=== PATIENT | male | born 1945 | race Caucasian/White ===

== ENCOUNTER → 2019-01-26 | Day surgery (SDC) | payer MEDICARE ==
[~2019-01-26] MED LIST: Heparin 2 UNITS/ML IVPREMIX* 2,000 ML IV ONE; Heparin(*) 1000 UNIT/ML 10 ML VIAL CATH LAB IV ONE; Iodixanol 320 (CONTRAST) 100 ML SDV ONE; Iohexol 350 (CONTRAST) 200 ML MDV IV ONE; Lidocaine 1% INJ* 10 MG/ML 30 ML SDV ONE; Midazolam* 1 MG/ML 5 ML VIAL (5 MG) ONE; Morphine 10 MG/ML VIAL (1 ml) ONE; NS 0.9% 1000 ML** 1,000 ML IV SCH; VERAPAMIL 2.5 MG/ML 2 ML VIAL ** 5 mg/2 ml ONE; fentaNYL* 50 MCG/ML 2 ML VIAL (100 MCG VIAL) ONE; nitroGLYCERIN DRIP* 25,000 MCG/250 ML BTL ONE
--- NOTE | 2019-01-26 13:27 | CATH ---
CATH REPORT: DATE OF PROCEDURE: 01/26/19 - [facility] CATH PRIMARY CARE PHYSICIAN: Dr. Geovanni Lee. SEARCH ENGINE MARKETING MANAGER: Dr. Tiffany Uribe. PROCEDURES: Right radial artery access with bilateral selective coronary cineangiography. HISTORY: A 73-year-old male with remote history of infarct, now with atrial flutter and decompensated heart failure with LVEF of 10%. PROCEDURE ACCESS: Right radial artery sheath 6F slender. MEDICATIONS: 1. Subcu lidocaine. 2. IV morphine 2 mg. 3. Nitroglycerin 300 mcg. 4. Heparin 3000 units IA. DIAGNOSTIC CATHETER: 5F TIG4. HEMODYNAMICS: Initial AO 101/75, final BP 109/77. ANGIOGRAPHY: Image quality somewhat degraded by his decompensated heart failure , and limitation of contrast because of his severe decompensated left-sided heart failure. During the procedure, the patient was comfortable, but had Cheynes-Roberts respirations, but was able to lie flat. Left main: The left main is normal in size without stenosis. LAD: The LAD is large, extends past the apex, it supplies a large first diagonal, a moderate mid diagonal which is preceded by a slit like 50% stenosis , distally the LAD extends to the apex. Circumflex: The circumflex is not dominant, is large with a moderate marginal and a moderate posterolateral, it has no significant stenosis. There are left- to-right collaterals to the distal right coronary with filling of a large PDA and smaller posterolateral. RCA: The RCA has a TEACHER OF THE HANDICAPPED in the proximal segment with bridging collaterals, distally fills by [id number] collaterals. CONCLUSION: 1. Two vessel coronary artery disease with severe LV systolic dysfunction. 2. Normal aortic pressure. 3. Successful right radial artery access. [id number]/[facility] #: [id number] [facility]
[2019-01-26 13:47] VITALS: BP 103/73
== END | disposition home or self-care (01) ==
LOC: CHICATH 07:56
PROVIDERS: ATTEND Internal Medicine Cardiovascular Disease
DX: I25.10 Atherosclerotic heart disease of native coronary artery without angina pectoris (principal); I10 Essential (primary) hypertension; E78.5 Hyperlipidemia, unspecified; R06.02 Shortness of breath; Z87.891 Personal history of nicotine dependence; I25.2 Old myocardial infarction; G47.30 Sleep apnea, unspecified; J84.112 Idiopathic pulmonary fibrosis; I44.7 Left bundle-branch block, unspecified; Z79.01 Long term (current) use of anticoagulants; I42.9 Cardiomyopathy, unspecified
CPT/HCPCS: 93454; J1644; J2250; J2270; J3010

== ENCOUNTER 2019-01-27 07:11 | Inpatient (IN) | payer MEDICARE ==
[2019-01-27] MEDS ORDERED: Midazolam* 1 MG/ML 5 ML VIAL (5 MG) ONE (08:25)
[2019-01-27] MEDS ORDERED: Flumazenil* 0.1 MG/ML 5 ML MDV ONE (08:25)
[2019-01-27] MEDS ORDERED: fentaNYL* 50 MCG/ML 2 ML VIAL (100 MCG VIAL) ONE (08:25)
[2019-01-27] MEDS ORDERED: Naloxone* 0.4 MG/ML 1 ML VIAL ONE (08:25)
[2019-01-27] MEDS ORDERED: Lidocaine 2% VISCOUS* 15 ML UDC ONE (08:25)
[2019-01-27] MEDS ORDERED: Amiodarone 150 MG IVPREMIX* 150 MG/100 ML BAG IV ONE ×3 (10:06→10:08)
[2019-01-27] MEDS ORDERED: AMIODARONE ONE (10:19)
[2019-01-27] MEDS: Norepinephrine 16MCG/ML IVPRE* 4,000 MCG/250 ML BAG IV SCH ×3 (11:10→20:35)
[2019-01-27] MEDS: DOPamine 800 MG/250 ML IVPREM* 800 MG/250 ML ML CENTR SCH (11:20)
[2019-01-27] MEDS ORDERED: Naloxone* 0.4 MG/ML 1 ML VIAL IV PUSH ONE (11:32)
--- NOTE | 2019-01-27 11:42 | CONSULT ---
Subjective Date of Service: 01/27/19 - CC: SOB, orthopnea Interval History: 73 yo with SOB, orthopnea, dementia. Found to have a severe CM, atrial flutter RVR unknown duration. Cath yesterday showed occluded RCA (hx MT age 55) and 50% LAD lesion. IRMA guided CV today: EF 10%, severe RV hypokinesis, Rouleaux formation LA, no clot in THERESA. Succesful CV, loaded with IV amiodarone 300 mg 30 mins post CV BP dropped, apneic breathing. Remazicon 0.3 mg given Pt now in ICU. Family History: Unchanged from Admission Social History: Unchanged from Admission Past Medical History: Unchanged from Admission - CAD, 2V occluded RCA, 50% LAD, CM: ERF 10%, Atrial flutter, CHF, HTN, DM, Chol, SHU, Dementia Medications Active Medications: Amiodarone HCl (Nexterone Drip*) 150 mg in 100 mls @ 600 mls/hr IV ED ONCE ONE Stop: 01/27/19 10:15 Last Admin: 01/27/19 11:26 Dose: Not Given Amiodarone HCl (Nexterone Drip*) 150 mg in 100 mls @ 600 mls/hr IV ED ONCE ONE Stop: 01/27/19 10:16 Last Admin: 01/27/19 11:26 Dose: Not Given Dopamine HCl/Dextrose (Dopamine 800 Mg/250 Ml Ivprem*) 800 mg in 250 mls @ 9.355 mls/hr CENTR .Initial Rate YANELIS; Protocol Norepinephrine Bitartrate (Levophed 16 Mcg/Ml Premix*) 4,000 mcg in 250 mls @ 93.75 mls/hr IV .INITIAL RATE YANELIS; Protocol Naloxone HCl (Narcan*) 0.4 mg IV PUSH ONCE ONE Stop: 01/27/19 11:33 HOME MEDS: Apixaban* [Eliquis*] 5 mg PO BID 01/25/19 [History Confirmed 01/27/19] Aspirin EC TAB* [Ecotrin EC Low Dose 81 MG*] 81 mg PO DAILY 01/25/19 [History Confirmed 01/27/19] Atorvastatin* [Lipitor 20 MG*] 20 mg PO BEDTIME 01/25/19 [History Confirmed 05/05] Carvedilol TAB* [Coreg TAB*] 6.25 mg PO BID 01/25/19 [History Confirmed 01/27/19 ] Cyanocobalamin TAB* [Vitamin B12 TAB*] 500 mcg PO DAILY 01/25/19 [History Confirmed 01/27/19] Furosemide TAB* [Lasix TAB*] 40 mg PO DAILY 01/25/19 [History Confirmed 01/27/19 ] Lisinopril TAB* [Prinivil TAB 10 MG*] 20 mg PO DAILY 01/25/19 [History Confirmed 01/27/19] Multivitamin [Multivitamins] 1 cap PO DAILY 01/25/19 [History Confirmed 01/27/19 ] Nintedanib Esylate [Ofev] 150 mg PO BID WITH MEALS 01/25/19 [History Confirmed 01/27/19] Potassium Chlor TAB* [Potassium Chlor TAB 20 MEQ*] 20 meq PO DAILY 01/25/19 [ History Confirmed 01/27/19] Spironolactone TAB* [Aldactone TAB 25 MG*] 25 mg PO DAILY 01/25/19 [History Confirmed 01/27/19] Tamsulosin HCl 0.4 mg PO BEDTIME 01/25/19 [History Confirmed 01/27/19] Amiodarone TAB* [Cordarone Tab*] 200 mg PO DAILY #90 tab 01/27/19 [Rx] Home Medications: Apixaban* [Eliquis*] 5 mg PO BID 01/25/19 [History Confirmed 01/27/19] Aspirin EC TAB* [Ecotrin EC Low Dose 81 MG*] 81 mg PO DAILY 01/25/19 [History Confirmed 01/27/19] Atorvastatin* [Lipitor 20 MG*] 20 mg PO BEDTIME 01/25/19 [History Confirmed 05/05] Carvedilol TAB* [Coreg TAB*] 6.25 mg PO BID 01/25/19 [History Confirmed 01/27/19 ] Cyanocobalamin TAB* [Vitamin B12 TAB*] 500 mcg PO DAILY 01/25/19 [History Confirmed 01/27/19] Furosemide TAB* [Lasix TAB*] 40 mg PO DAILY 01/25/19 [History Confirmed 01/27/19 ] Lisinopril TAB* [Prinivil TAB 10 MG*] 20 mg PO DAILY 01/25/19 [History Confirmed 01/27/19] Multivitamin [Multivitamins] 1 cap PO DAILY 01/25/19 [History Confirmed 01/27/19 ] Nintedanib Esylate [Ofev] 150 mg PO BID WITH MEALS 01/25/19 [History Confirmed 01/27/19] Potassium Chlor TAB* [Potassium Chlor TAB 20 MEQ*] 20 meq PO DAILY 01/25/19 [ History Confirmed 01/27/19] Spironolactone TAB* [Aldactone TAB 25 MG*] 25 mg PO DAILY 01/25/19 [History Confirmed 01/27/19] Tamsulosin HCl 0.4 mg PO BEDTIME 01/25/19 [History Confirmed 01/27/19] Amiodarone TAB* [Cordarone Tab*] 200 mg PO DAILY #90 tab 01/27/19 [Rx] Review of Systems - Measurements Intake and Output: Intake and Output Last 24 Hours 01/25/19 01/26/19 01/27/19 01/28/19 04:59 04:59 04:59 04:59 Intake Total 550 Balance 550 Weight 220 lb Intake: IV Fluids 550 - Review of Systems General Comments: +Orthopnea, SOB. No CP/arm pain. Per X Noemi Angela hx ADD, mentation worsened in September after new CPAP that turned out to be non functional. Review of Systems Statement: All other review of systems negative, unless stated above. Objective Vital Signs: Temp Pulse Resp BP Pulse Ox 97.1 F 57 2 85/58 85 01/27/19 11:14 01/27/19 11:23 01/27/19 11:14 01/27/19 11:23 01/27/19 11:23 Vital Signs - 12 hr Temp Pulse Resp BP Pulse Ox 01/27/19 11:23 57 85/58 85 01/27/19 11:16 54 61/49 96 01/27/19 11:14 97.1 F 56 2 62/41 97 01/27/19 11:11 61 62/43 100 01/27/19 10:53 61/51 01/27/19 10:39 63/50 01/27/19 10:36 63 66/51 87 01/27/19 10:34 65 68/56 96 01/27/19 10:28 85 89/68 97 01/27/19 10:23 89 95/72 98 01/27/19 10:18 91 110/74 99 01/27/19 10:13 89 99/73 96 01/27/19 10:08 86 107/83 89 01/27/19 10:04 115 109/84 96 01/27/19 10:00 114 100 01/27/19 09:58 114 115/89 95 01/27/19 09:53 115 116/92 98 01/27/19 09:48 114 115/90 96 01/27/19 09:43 114 113/78 99 01/27/19 09:38 117 108/78 95 01/27/19 09:33 117 110/79 94 01/27/19 09:28 116 111/86 96 01/27/19 09:23 116 114/87 93 01/27/19 09:18 115 108/84 92 01/27/19 09:15 116 108/82 98 01/27/19 09:01 116 97 01/27/19 08:51 104/77 01/27/19 08:01 116 24 95 01/27/19 07:42 97.4 F 01/27/19 07:39 116 30 102/76 94 01/27/19 07:38 115 23 98 Oxygen Devices in Use Now: Nasal Cannula Appearance: tall older gentleman, initially chatty but vague, not accurate. Post CV apneic breathing, somewhat compative. Eyes: PERRLA Ears/Nose/Mouth/Throat: Clear Oropharnyx, Mucous Membranes Moist Neck: Trachea Midline, No Thyroid Enlargement, Masses Respiratory: Symmetrical Chest Expansion and Respiratory Effort, Clear to Auscultation Cardiovascular: RRR Abdominal: NL Sounds; No Tenderness; No Distention Extremities: No Edema Skin: No Rash or Ulcers Neurological: NL Muscle Strength and Tone - on arrival. Clear dementia. Follows commands. Lines/Tubes/Other Access: Clean, Dry and Intact Peripheral IV Diagnostic Imaging: Transesophageal Echocardiogram Patient: Markus Miller *Reading Physician: Tiffany Morales MD Indications: Atrial Flutter. History: Coronary artery disease. PMH: Cardiomyopathy. Myocardial infarction. Risk factors: Hypertension. Diabetes mellitus. Dyslipidemia. Conclusions Summary: - Left ventricle: The cavity size is dilated. Wall thickness is mildly increased. Systolic function is severely reduced. The estimated ejection fraction is <10%. - Right ventricle: Systolic function is moderately to severely reduced. - Left atrium: There is no evidence of a thrombus in the atrial cavity or appendage. There is spontaneous echo contrast ("smoke") in the cavity and the appendage. - Atrial septum: A PFO is not demonstrated by color Doppler or agitated saline contrast. - Mitral valve: There is trace to mild regurgitation. - Aortic valve: Mild focal calcification involving the left coronary and noncoronary cusp. -Tricuspid valve: Mild tricuspid regurgitation. EKG Data: Pre CV: a flutter 2:1 block, V rate 108 bpm Post CV: [id number]'s. Assessment/Plan 73 yo with A flutter unknown duration started on Eliquis 2 weeks ago. Severe CM , ischemic and non ischemic, new drop thought to be due to rhythm. Underwent IRMA guided CV complicated by hypotension, apnea. Admitted to hospitalists ICU. Possible cardiogenic shock due to drop in pulse rate post CV- (SV= HR x CO). Sedation could have contributed, but presentation late wrt primary etiology. High risk patient due to severe BiV failure. Supportive care now, agree with pressors/ICU. - should r/o CVA post CV. Additional recommendations following above care and w/u.
[2019-01-27] MEDS ORDERED: Ondansetron INJ* 2 MG/ML VIAL IV PRN (11:47)
[2019-01-27] MEDS ORDERED: Ondansetron INJ* 2 MG/ML VIAL ONE (11:48)
--- NOTE | 2019-01-27 11:55 | TEE ---
*[facility]* [place] [address] Fax #: [phone] Transesophageal Echocardiogram Patient: Markus Miller : 1945 Study Date: 01/27/2019 Age: 73 Gender: M HR: 115 bpm Height: 71 in /180.3 cm BSA: 2.2 m^2 Weight: 219.5 lb /99.8 kg BMI: 30.7 kg/m^2 *Civil Engineering Director: Ariane Larson [facility] *Referring Physician: * Tiffany Uribe MD *Reading Physician: * Tiffany Uribe MD Indications: Atrial Flutter. History: Coronary artery disease. PMH: Cardiomyopathy. Myocardial infarction. Risk factors: Hypertension. Diabetes mellitus. Dyslipidemia. Conclusions Summary: - Left ventricle: The cavity size is dilated. Wall thickness is mildly increased. Systolic function is severely reduced. The estimated ejection fraction is <10%. - Right ventricle: Systolic function is moderately to severely reduced. - Left atrium: There is no evidence of a thrombus in the atrial cavity or appendage. There is spontaneous echo contrast ("smoke") in the cavity and the appendage. - Atrial septum: A PFO is not demonstrated by color Doppler or agitated saline contrast. - Mitral valve: There is trace to mild regurgitation. - Aortic valve: Mild focal calcification involving the left coronary and noncoronary cusp. - Tricuspid valve: There is mild regurgitation. - Ascending aorta: The ascending aorta is mildly dilated and mildly calcified. - Descending aorta: The descending aorta is mildly calcified. Study data: Diagnostic Transesophageal Echocardiogram Consent: The risks and benefits of the procedure, including alternatives were discussed with the patient and/or their health care rental representative and written informed consent was obtained. Procedure: Initial setup: The patient was brought to the laboratory in the fasting state.Intravenous access was obtained. Surface ECG leads, heart rate, heart rhythm, blood pressure measurements, pulse oximetric signals, and mainstream end-tidal CO2 tracings were monitored throughout the procedure. Sedation. Moderate sedation was administered by nursing staff. History and physical as well as labs were reviewed. An oral bite block was inserted for protection of oral dentition. The patient was placed in the left lateral decubitus position. Topical anesthesia was obtained using viscous lidocaine. A transesophageal probe was inserted by the attending safe and vault mechanic. Transesophageal echocardiography was performed, image quality was good, and all standard views were attempted within the limitations of patient tolerance and safety. Multiple 2D, color flow Doppler and spectral Doppler images were obtained. The transesophageal probe was removed. A bubble study was performed. Image #[id number]. Location: Procedure room. Patient status: Outpatient. Study completion: The patient tolerated the procedure well. There were no complications. Administered medications: Midazolam, 4mg. Fentanyl, 25mcg. Rhythm: Atrial flutter. Findings Left ventricle: The cavity size is dilated. Wall thickness is mildly increased. Systolic function is severely reduced. The estimated ejection fraction is <10%. Severe diffuse hypokinesis. Left ventricular diastolic function parameters are indeterminate. Right ventricle: The cavity size is dilated. Systolic function is moderately to severely reduced. Left atrium: The atrium is dilated. The appendage is dilated. There is no evidence of a thrombus in the atrial cavity or appendage. There is spontaneous echo contrast ("smoke") in the cavity and the appendage. Right atrium: The atrium is dilated. There is spontaneous echo contrast ("smoke"). Atrial septum: A PFO is not demonstrated by color Doppler or agitated saline contrast. 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 Mitral valve: The leaflets are mildly thickened. There is no evidence of stenosis. There is trace to mild regurgitation. Aortic valve: The annulus is mildly calcified. The valve is trileaflet. Mild focal calcification involving the left coronary and noncoronary cusp. There is no evidence of stenosis. There is trace regurgitation. Tricuspid valve: The leaflets are normal thickness. There is no evidence of stenosis. There is mild regurgitation. Pulmonic valve: The leaflets are normal thickness. There is no evidence of stenosis. There is trace regurgitation. Aorta: Aortic root: The aortic root is mildly dilated and mildly calcified. Ascending aorta: The ascending aorta is mildly dilated and mildly calcified. Aortic arch: The aortic arch is mildly calcified. Descending aorta: The descending aorta is mildly calcified. Pericardium: There is no significant pericardial effusion. Pulmonary arteries: Not well visualized. Systemic veins: Inferior vena cava: The vessel is normal in size. Superior vena cava: The vessel is appears normal. Pulmonary veins: The Pulmonary veins appear dilated. Measurements Aortic valve Value Ref Tricuspid valve Value Ref Noemi diam, ED 2.0 cm ---- TR peak v 2.2 m/sec <=2.8 Noemi diam/bsa, ED 0.9 cm/m^2 ---- Peak RV-RA grad, S 19 mm Hg ----- Mitral valve Value Ref Aortic root Value Ref Peak E 0.74 m/sec ---- Root diam 3.6 cm <4.3 Peak A 0.03 m/sec ---- Decel time 64 ms ---- Ascending aorta Value Ref Peak grad, D 2.2 mm Hg ---- AAo AP diam, S 3.8 cm ----- Peak E/A ratio 23.9 ---- Legend: (L) and (H) francine values outside specified reference range. Prepared and electronically signed by Tiffany Uribe MD 01/27/2019 11:55
--- NOTE | 2019-01-27 12:08 | HP ---
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 Today 01/27 he was brought in for IRMA and Aflutter Cardioversion. Noted to have Worsened LV systolic and RV systolic dysfunction compared to prior old echocardiograms, suspected to be from likely uncontrolled arrhythmia Aflutter now. He was given fentanyl and versed. Cardioverted in phlebotomist medical lab assistant. No significant events, then given amiodarone 300mg IV load post and HR dropped to 50s, he became cyanotic, hypotensive. HEALTH CARE ASSISTANT called, started on levophed, oxygen, he appears cyanotic. Transferred to ICU. Tele with HR 50s, cold extremities, peripheral cyanosis evident+. I started dopamine infusion for inotropy and chronotropy, continued levophed for now. After 20- 30min, HR 70s, sinus, more awake and not as restless, BP 90s now, cyanosis slightly better, on NC with sats 90s, no Resp distress but some apneic episodes , responding to commands. ED/floor Course: as above ROS: ROS unable to be obtained secondary to mental status change PMHx: Ischemic CMP with Severe Biventricular Dysfunction, CAD/UT, recent cath with occluded RCA with collaterals, Atrial flutter on eliquis, DM, HLD, HTN, Sleep apnea, Tobacco use in past, Obesity, BPH, Idiopathic pulmonary fibrosis on home o2, h/o lumbar compression fractures PSHx: tonsillectomy, benighn tumour salivary gland, hernia repair 1969, Family History: Alzheimers disease; Father [place]; Mother [place], alzheimers Social History: Alcohol-occassional, Smoking-former with 2ppd x40yrs, stopped 7 yrs back, Drug use-none, caffeine daily 3cups; Job- use to work in [employer]; family-, HCP is ex- Allergies: NKDA Home Medications: Apixaban* [Eliquis*] 5 mg PO BID 01/25/19 [History Confirmed 01/27/19] Aspirin EC TAB* [Ecotrin EC Low Dose 81 MG*] 81 mg PO DAILY 01/25/19 [History Confirmed 01/27/19] Atorvastatin* [Lipitor 20 MG*] 20 mg PO BEDTIME 01/25/19 [History Confirmed 05/05] Carvedilol TAB* [Coreg TAB*] 6.25 mg PO BID 01/25/19 [History Confirmed 01/27/19 ] Cyanocobalamin TAB* [Vitamin B12 TAB*] 500 mcg PO DAILY 01/25/19 [History Confirmed 01/27/19] Furosemide TAB* [Lasix TAB*] 40 mg PO DAILY 01/25/19 [History Confirmed 01/27/19 ] Lisinopril TAB* [Prinivil TAB 10 MG*] 20 mg PO DAILY 01/25/19 [History Confirmed 01/27/19] Multivitamin [Multivitamins] 1 cap PO DAILY 01/25/19 [History Confirmed 01/27/19 ] Nintedanib Esylate [Ofev] 150 mg PO BID WITH MEALS 01/25/19 [History Confirmed 01/27/19] Potassium Chlor TAB* [Potassium Chlor TAB 20 MEQ*] 20 meq PO DAILY 01/25/19 [ History Confirmed 01/27/19] Spironolactone TAB* [Aldactone TAB 25 MG*] 25 mg PO DAILY 01/25/19 [History Confirmed 01/27/19] Tamsulosin HCl 0.4 mg PO BEDTIME 01/25/19 [History Confirmed 01/27/19] Amiodarone TAB* [Cordarone Tab*] 200 mg PO DAILY #90 tab 01/27/19 [Rx] Tele: sinus bradycardia Vitals: Vital Signs Temp 97.1 F 01/27/19 11:14 Pulse 57 01/27/19 11:23 Resp 2 01/27/19 11:14 BP 85/58 01/27/19 11:23 Pulse Ox 85 01/27/19 11:23 Intake & Output 01/26/19 01/27/19 01/27/19 18:59 06:59 18:59 Intake Total 550 Balance 550 Weight 99.79 kg Intake: IV Fluids 550 O2/Vent: NC 6L Infusions: levophed, dopamine 5 Current Medications: Dopamine HCl/Dextrose (Dopamine 800 Mg/250 Ml Ivprem*) 800 mg in 250 mls @ 9.355 mls/hr CENTR .Initial Rate YANELIS; Protocol Norepinephrine Bitartrate (Levophed 16 Mcg/Ml Premix*) 4,000 mcg in 250 mls @ 93.75 mls/hr IV .INITIAL RATE YANELIS; Protocol Ondansetron HCl (Zofran Inj*) 4 mg IV Q4H PRN PRN Reason: NAUSEA Physical Exam: Constitutional: awakens, confused, restless, no distress, no diaphoresis Head: normocephalic, atraumatic Eyes: no pallor, no icterus ENT: moist mucous membranes; Cyanosis++ Neck: soft, supple, no jvd, no stridor CVS: bradycardic+, regular, no murmur Chest/Resp: bilateral air entry, no rhales, no wheeze, no rhonchi, no acc muscle use Abdomen/GI: soft, nontender, nondistended, BS+ Ext/Msk: warm, pulses+, no edema Skin: intact, warm Neuro: awake, alert, orientedx1-2, moving all extremities, no gross focal deficit Psych: unable to assess in acute mental status change Labs: Laboratory Results - last 24 hr 01/27/19 11:06 POC Glucose (mg/dL) 153 H Imaging: pending Assessment: 73y M w/pmhx of 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 Today 01/27 he was brought in for IRMA and Aflutter Cardioversion. Noted to have Worsened LV systolic and RV systolic dysfunction compared to prior old echocardiograms, suspected to be from likely uncontrolled arrhythmia Aflutter now. He was given fentanyl and versed. Cardioverted in phlebotomist medical lab assistant. No significant events, then given amiodarone 300mg IV load post and HR dropped to 50s, he became cyanotic, hypotensive. HEALTH CARE ASSISTANT called, started on levophed, oxygen, moved to ICU, started on dopamine for bradycardia. -Cardiogenic shock -Sinus Bradycardia -Atrial Flutter; s/p cardioversion 01/27/19 -Delirium -acute on Chronic Hypoxic respiratory failure; on home O2 Severe Biventricular Systolic dysfunction NICMP CAD, occluded RCA DM HTN IPF, Sleep Apnea Plan: Neuro- -delirium likely from hypoperfusion/shock -avoid sedation for now, seems to be slowly improving now with increased BP and HR -Delirium prec; avoid BDZ CVS- -Shock, may be ppt'd post IRMA cardioversion with lower rate in setting of Severe LV dysfunction + amio IV infusion -Bradycardia improved with dopamine; may consider adding dobutamine next -cont levophed for BP support -check LA and BNP -follow uop -hold antihypertensives/BB -will eventually start Amio PO 200mg po daily once improved from shock -cont po eliquis later today; may need IV heparin if not able to take po or still in shock for AC -Titrate Pressors to Maintain MAP>65 Resp- -acute on chronic hypoxic resp failure; on 6 L nc, some tono sánchez patter? apneic episodes? -check CXR now -no congestion on exam noted or wheeze -close observation, stable cyanosis and improving actually it seems; NIV if needed -CPAP at night? -Wean Fio2 to keep sat>92% -Bronchodilators PRN, Aspiration prec ID- afebrile. acute decopmensation, likely cardiogenic. no acute infectious process suspected. will followup cxr. GI- -NPO while delirium and in shock -GI prophylaxis Renal- -strict I/O, replete to keep K>4, Mg>2 -boyd as indicated Heme- cont AC PO once able Endo- Maintain BG<200, insulin protocol as needed Musculsk- pressure ulcer prophylaxis. Bedrest. Wounds- none Nutrition- NPO DVT prophylaxis: SCDs; eliquis po or IV if needed GI prophylaxis: h2b Central Line: no Arterial Line: no Boyd Cathetor: no Disposition: Admit to ICU; Expected LOS>2 midnights; Patient requires Critical Care/ICU for cardiogenic shock, delirium Patient Clinical Status: guarded, critical Code Status: full code Total Critical Care time is 55 minutes, excluding procedures/teaching Daquan Delacruz MD Customer Account Representative (Electronically Signed)
--- NOTE | 2019-01-27 12:08 | PN ---
Progress Note - Progress Note Date of Service: 01/27/19 Note: Responded to CAT call. Pt was noted to be intermittently awake and restless, but then he'd become unresponsive for a few seconds. SBP in 60's. o2 sat 92% on NRB. Just cardioverted by Dr. Uribe received Fentanyl and Versed for sedation as well Amiodarone IV 300 mg. Post cardioversion Romazicon was administered. Pt was tx with IVF bolus 500 ml and pressors were started: Levophed at 5 mcg/min Also Narcan at 0.4 mg IV was given. Pt was signed out to Dr. Delacruz
[2019-01-27] MEDS ORDERED: Albuterol 2.5 MG/3 ML NEB.SOL* (0.083%) INH PRN (12:18)
--- NOTE | 2019-01-27 12:22 | CARD ---
CC: Dr. Geovanni Lee; Dr. Tiffany Uribe * ELECTRICAL CARDIOVERSION: DATE OF PROCEDURE: 01/27/19 - ROOM #ICU-04 PROCEDURE: Electrical cardioversion. PREPROCEDURE DIAGNOSES: Atrial flutter, rapid ventricular rate, and severe cardiomyopathy. POSTPROCEDURE DIAGNOSES: Atrial flutter, rapid ventricular rate, and severe cardiomyopathy. PROCEDURE COMPLETED BY: Dr. Tiffany Uribe. ANESTHESIA: MAC. INDICATIONS: The indications, risks, and benefits of the procedure were discussed with the patient and with his ex-, who is his power of commonwealth attorney. The patient has some dementia, but he and his ex- were amenable to proceeding. Details of the procedure, risks, and benefits were explained in depth. DESCRIPTION OF PROCEDURE: AP patches were applied to the patient. He received throughout both procedures a total of 5 mg of Versed and 50 mcg of fentanyl. The patient underwent transesophageal echo which is documented separately. No clot was seen in the left atrial appendage. He did have formation in the left atrium, but he had severe biventricular depressed ejection fraction. A decision was made to proceed with cardioversion. Using AP patches, 120 joules was delivered across the chest wall with initially transient successful cardioversion and it looked like he went back into flutter. He was given 300 mg of IV amiodarone, that while drying it up, he went into sinus rhythm. The amiodarone was given. The patient was initially hemodynamically stable during the IRMA and cardioversion; however, 30 minutes into recovery, the patient's breathing was apneic and blood pressure dropped to 60 systolic. He was given 0.3 mg of Romazicon with some improvement in apnea, but blood pressure remained low and he was transferred to the unit. This will be documented separately. CONCLUSION: Successful cardioversion from atrial flutter in a rapid ventricular rate to normal sinus rhythm, complicated by hypotension and apneic breathing. [id number]/[facility] #: [id number] [facility]ITAL[facility]
[2019-01-27 13:13] LABS: ABS Eosinophils 0.1 10^3/ul (0-0.6); ABS Lymphocytes 1.1 10^3/ul (1.0-4.8); ABS Monocytes 0.6 10^3/ul (0-0.8); ABS Neutrophils 4.8 10^3/ul (1.5-7.7); Eosinophil % 0.8 %; Hematocrit 34 % (42-52); Lymphocyte % 16.3 %; Mean Corpuscular HGB Conc 32 g/dL (31-36); Mean Corpuscular Hemoglobin 31 pg (27-31); Mean Corpuscular Volume 96 fL (80-94); Mean Platelet Volume 8.1 fL (7.4-10.4); Nucleated Red Blood Cells % 0.2; Platelet Count 117 10^3/uL (150-450); Red Blood Count 3.59 10^6 /uL (4.18-5.48); Red Cell Distribution Width 20 % (10-15); White Blood Count 6.5 10^3/uL (3.5-10.8)
[2019-01-27 13:26] LABS: ALT 45 U/L (7-52); AST 55 U/L (13-39); Albumin 2.3 g/dL (3.2-5.2); Albumin/Globulin Ratio 1.1 (1-3); Alkaline Phosphatase 140 U/L (34-104); BUN/Creatinine Ratio 16.2 (8-20); Blood Urea Nitrogen 16 mg/dL (6-24); CO2 Carbon Dioxide 16 mmol/L (22-32); EGFR African American 89.4 (>60); EGFR Non-African American 73.9 (>60); Globulin 2.1 g/dL (2-4); Glucose 275 mg/dL (70-100); HDL Cholesterol 9.4 mg/dL; Magnesium 1.1 mg/dL (1.9-2.7); Phosphorus 3.2 mg/dL (2.5-5.0); Potassium 3.1 mmol/L (3.5-5.0); Sodium 139 mmol/L (135-145); Total Protein 4.4 g/dL (6.4-8.9)
[2019-01-27 13:28] LABS: Anion Gap 7 mmol/L (2-11); Chloride 116 mmol/L (101-111); Cholesterol < 27 mg/dL; LDL Cholesterol 16 mg/dL; Triglycerides < 10 mg/dL
[2019-01-27 13:29] LABS: Calcium 5.4 mg/dL (8.6-10.3); Troponin I 0.04 ng/mL (<0.04)
[2019-01-27] MEDS ORDERED: Potassium Chloride* LIQUID 20 MEQ/15 ML UDC PO ONE (13:38)
[2019-01-27] MEDS ORDERED: Magnesium Sulf 4 GM/100 ML IV* 4,000 MG/100 ML BAG IVPB ONE (14:00)
[2019-01-27] MEDS: KCL 10 MEQ/50 ML IVPREMIX* 10 MEQ/50 ML BAG IV SCH ×5 (14:08→21:49)
[2019-01-27] MEDS ORDERED: Haloperidol INJ IV/IM* 5 MG/ML AMP IV SLOW PU ONE ×3 (18:25→22:00)
[2019-01-27] MEDS ORDERED: Haloperidol INJ IV/IM* 5 MG/ML AMP ONE (18:28)
[2019-01-27 19:07] LABS: Troponin I 0.05 ng/mL (<0.04)
[2019-01-27] MEDS ORDERED: Atorvastatin* 20 MG TAB PO SCH (21:00)
[2019-01-27] MEDS ORDERED: Apixaban* 5 MG TAB PO SCH (21:00)
[2019-01-27] MEDS ORDERED: Lorazepam PYXIS KEY ONE (21:26)
[2019-01-27] MEDS ORDERED: LORazepam INJ* 2 MG/ML 1 ML VIAL ONE (21:27)
--- NOTE | 2019-01-27 21:47 | OP ---
Operative Report - Blank - Operative Report Date of Operation: 01/27/19 Note: Central Line Procedure Note Indication: venous access Diagnosis: cardiogenic shock Performed by: Daquan Delacruz MD Consent: Emergent [place] Protocol: Time-out was performed and the correct patient and site were verified - Prior labs/history was reviewed prior to procedure - Full sterile precautions with chlorhexidine/full drapes/gowns/gloves utilized - Right femoral vein located after pulse felt - Vessel accessed with return of nonpulsatile blood. A guidewire was passed into vessel and confirmed in vessel with ultrasound. 1 attempt was made to access vessel. Vessel was dilated and cathetor was passed over wire into vessel. All ports demonstrated good blood return and flushed. Catheter was sutured to site and dressing applied. Adequate hemostasis was achieved EBL <5 cc No immediate complications noted, patient tolerated procedure well. Daquan Delacruz MD Machine Cloth Trimmer (Electronically Signed)
--- NOTE | 2019-01-27 21:48 | PN ---
Progress Note - Progress Note Date of Service: 01/27/19 Note: patient was confused but agiated at times. during day improved with HR and BP and decreasing levophed. maintained on dopamine. he pulled out dopamine lines at unknown time. bradycardia again, confusion, encephalpathy. emergent femoral veing TLC placed; added back dopamine at 10mcg and levophed needs dopamine for chronotropy. patient is restless and does not listen haldol 2.5mg iv x2, ativan prn may need to be intubated if he does not allow us to manage him. history dementia, so he does not understand situation. Daquan Delacruz Md CC time 45 min assessing him at bedside, additional
[2019-01-27] MEDS ORDERED: EPINEPHrine SULFITE FREE* 1 MG in D5W 250 ML BAG* 249 ML IV ONE (22:29)
[2019-01-27] MEDS ORDERED: Succinylcholine* 20 MG/ML 10 ML VIAL ONE (22:33)
[2019-01-27] MEDS ORDERED: Etomidate* 2 MG/ML 20 ML VIAL (40 MG) ONE (22:40)
[2019-01-27] MEDS ORDERED: Propofol* 0 ML ONE (22:41)
[2019-01-27] MEDS ORDERED: Propofol* 100 ML ONE (22:45)
[2019-01-27] MEDS ORDERED: Propofol* 100 ML IV SCH (23:00)
[2019-01-27] MEDS ORDERED: EPINEPHrine 4 mg/1000 mL Drip (using amps) dosed in mcg/min IV SCH ×4 (23:00)
[2019-01-27] MEDS: Propofol* 100 ML IV SCH (23:06)
[2019-01-27] MEDS ORDERED: Norepinephrine 16MCG/ML IVPRE* (4 MG/250 ML) in NS 0.9% IV ONE (23:09)
[2019-01-27] MEDS ORDERED: Sodium Bicarbonate 8.4%* 50 ML SYRINGE ONE (23:09)
[2019-01-27] MEDS ORDERED: EPINEPHrine SYR 0.1MG/ML* SYRINGE ONE (23:09)
[2019-01-27] MEDS ORDERED: DOPamine 800 MG/250 ML IVPREM* 3200 MCG/ML *** NOTE STRENGTH CENTR ONE (23:09)
[2019-01-27 23:45] LABS: Hematocrit 45 % (42-52); Hemoglobin 13.9 g/dL (14.0-18.0); Mean Corpuscular HGB Conc 31 g/dL (31-36); Mean Corpuscular Hemoglobin 30 pg (27-31); Mean Corpuscular Volume 97 fL (80-94); Mean Platelet Volume 8.5 fL (7.4-10.4); Platelet Count 129 10^3/uL (150-450); Red Blood Count 4.62 10^6 /uL (4.18-5.48); Red Cell Distribution Width 20 % (10-15); White Blood Count 16.3 10^3/uL (3.5-10.8)
[2019-01-27] MEDS ORDERED: fentaNYL INFUSION 50 MCG/ML* 2,500 MCG/50 ML BAG IV SCH (23:45)
[2019-01-27] MEDS ORDERED: Midazolam* 1 MG/ML 2 ML VIAL (2 MG) ONE (23:47)
[2019-01-27 23:51] LABS: Activated Partial Thrombo Time 38.3 seconds (26.0-38.0); INR 3.86 (0.82-1.09)
[2019-01-28] MEDS ORDERED: Calcium Gluconate INJ* 1 GM in NS 0.9% 50 ML* 50 ML IVPB ONE ×2
[2019-01-28 00:02] LABS: BUN/Creatinine Ratio 18.6 (8-20); Blood Urea Nitrogen 29 mg/dL (6-24); CO2 Carbon Dioxide 23 mmol/L (22-32); Calcium 8.4 mg/dL (8.6-10.3); Chloride 102 mmol/L (101-111); EGFR African American 52.9 (>60); EGFR Non-African American 43.7 (>60); Glucose 121 mg/dL (70-100); Phosphorus 6.8 mg/dL (2.5-5.0); Sodium 137 mmol/L (135-145)
[2019-01-28 00:06] LABS: Anion Gap 12 mmol/L (2-11); Potassium 6.2 mmol/L (3.5-5.0)
[2019-01-28 00:08] LABS: Troponin I 0.17 ng/mL (<0.04)
[2019-01-28 00:26] LABS: ABS Lymphocytes 3.2 10^3/ul (1.0-4.8); ABS Monocytes 1.8 10^3/ul (0-0.8); ABS Neutrophils 11.2 10^3/ul (1.5-7.7); Lymphocyte % 19.8 %; Nucleated Red Blood Cells % 0.2; Polychromasia 2+
[2019-01-28] MEDS ORDERED: Calcium CHLORIDE 1 GM in D5W* (approx = 2.92 gm of Calcium Gluc) IV ONE ×2 (00:30→01:00)
[2019-01-28] MEDS: DOPamine 800 MG/250 ML IVPREM* 800 MG/250 ML ML CENTR SCH ×5 (00:55→22:57)
[2019-01-28] MEDS: Norepinephrine 16MCG/ML IVPRE* 4,000 MCG/250 ML BAG IV SCH (01:03)
[2019-01-28] MEDS ORDERED: Midazolam* 1 MG/ML 2 ML VIAL (2 MG) ONE (01:12)
--- NOTE | 2019-01-28 02:04 | OP ---
Operative Report - Blank - Operative Report Date of Operation: 01/28/19 Note: Arterial Line Procedure Note Indication: frequent arterial blood gases , invasive hemodynamic monitoring Diagnosis: cardiogenic shock, acute hypoxic respiratory failure, pulmonary edema Performed by: Daquan Delacruz MD Consent: Emergent [place] Protocol: Time-out was performed and the correct patient and site were verified - Prior labs/history was reviewed prior to procedure - Full sterile precautions with chlorhexidine/full drapes/gowns/gloves utilized - Right radial artery visualized with US - Vessel accessed with return of pulsatile blood. One attempt was made to access vessel. A cathetor was threaded over wire into vessel. Good arterial waveform was observed on monitor. - Arterial Catheter was sutured to site; dressing applied to site. EBL <5 cc No immediate complications noted, patient tolerated procedure well. Daquan Delacruz MD Clothing Manager (Electronically Signed)
[2019-01-28] MEDS ORDERED: Midazolam* 1 MG/ML 2 ML VIAL (2 MG) IV SLOW PU ONE ×2 (02:09)
--- NOTE | 2019-01-28 02:09 | OP ---
Operative Report - Blank - Operative Report Date of Operation: 01/28/19 Note: Introducer / Hornell Melly Procedure Note Indication: venous access, cardiogenic shock, heart failure Diagnosis: cardiogenic shock, acute decompensated heart failure, cardiac arrest , respiratory failure acute hypoxic Performed by: Dr Daquan Delacruz Consent: Emergent [place] Protocol: Time-out was performed and the correct patient and site were verified Central venous cathetor - Labs/history was reviewed prior to procedure - Full sterile precautions with chlorhexidine/full drapes/gowns/gloves utilized - Right Internal Jugular vein visualized with ultrasound - Vessel accessed under ultrasound guidance with return of nonpulsatile blood. A guidewire was passed into vessel and confirmed in vessel with ultrasound. 1 attempt was made to access vessel. Vessel was dilated and cathetor was passed over wire into vessel. All ports demonstrated good blood return and flushed. -Hornell Melly cathetor ports all flushed. Balloon inflated and tested. Hornell catheter inserted upto 20cm and balloon inflated, catheter advanced under telemetry and pressure waveform monitoring until it passed from RA to RV to PA, with subsequent PCW position obtained. Pressures recorded and balloon deflated at PCW position with subsequent pullback after deflation. Final waveform demonstrates PA waveform. Catheter was locked to introducer sheath and protective sleeve advanced and locked. -Hornell Melly locked at 63 cm francine. Hemodynamics - RA 22 RV 52/13 PA 52/30, mean 39 PCW 25 CO/CI via Kendra - pending CO/CI via thermodilution - pending Adequate hemostasis was achieved. EBL 5 cc No immediate complications noted, patient tolerated procedure well. Post Procedure CXR: Pending Daquan Delacruz MD Business Management Professor (Electronically Signed)
[2019-01-28] MEDS ORDERED: Insulin REGULAR(*) 1 UNITS UNIT IV PUSH ONE (02:10)
[2019-01-28] MEDS ORDERED: Dextrose 50% VIAL 50 ml IV PUSH STA (02:10)
--- NOTE | 2019-01-28 02:21 | PN ---
Progress Note - Progress Note Date of Service: 01/28/19 Note: Critical Care Patient shortly after previous central line placed started to get worse and decompensated. Progressive respiratory failure occurring, more cyanotic, lethargic, HR still 50s, BP 80-90s. he was intubated and shortly after oxygenation improved he developed PEA cardiac arrest, coded for 10-15 min with multiple Epi/bicarb. ROSC was achieved. I arrived to hospital, patient on dopamine 20, levo 20, epi 10 CXR psot code with pulmonary edema/congestion. Started on propofol 10. Less cyanotic now. I talked to ex- who came to hospital; she was distressed. I explained events and she understood as we did that he was improving throughout the day. Acute decompensation when he pulled off lines infusing dopamine and pressors caused downward deterioration. we discussed next plan, await neurological status, maintain hemodynamics and BP. She discussed that she wants to keep him alive till Son arrives on Thursday. She also states that they did talk about DNR and he was in process of filling it out but never had a chance to finish it. She also stated his wishes were never to live in a hospital, not be stuck on a vent, and not for his quality of life to deteriorate. She knew his mental status was worsening, psychosis like episodes it seems. Based on this we decided for aggressive care for next few days to determine if he may survive and wake up. we also understand to keep him sedation and use restraints due to his personality and that he may rip things out. Emergent arterial line placed. Emergent RIJ Treynor anthony placed for hemodynamic monitoring. He is sinus in 60-70s now; i assessed need for TVP but he does not require one at this time. Will reconsider TVP placement if needed if chronotropy is truly the issue. has some coffee ground from NGT now; dark blood Labs pending Noted K 6.2; calcium chloride 1gm IV x1 now; insulin/d50 ordered. reassess after AM labs, diuresis? check CO/CI on PA cathetor. d/c eliquis for now start PPI IV BID Assessment -Cardiac Arrest -Acute hypoxic and hypercap respiratory failure, intubated 01/27 -Acute pulmonary edema -Cardiogenic Shock -Bradycardia -Aflutter , s/p IRMA cardioversion -MONY -Encephalopathy -Upper GI bleed I spent a total of 60 minutes forming plan, reviewing labs and discussing plan with and address post code workup. Daquan Dleacruz MD Pharmacist Helper
[2019-01-28] MEDS: Midazolam IV for DRIP* 100 MG in NS 0.9% 100 ML* 80 ML IV SCH (03:26)
[2019-01-28] MEDS: Midazolam* 1 MG/ML 2 ML VIAL (2 MG) IV SLOW PU PRN ×2 (04:15→07:10)
[2019-01-28] MEDS: Norepinephrine VIAL* 8 MG in NS 0.9% 500 ML* 492 ML IV SCH ×5 (04:19→20:53)
[2019-01-28 04:29] VITALS: BP 96/53
[2019-01-28] MEDS: Pantoprazole IV* 40 MG IV SCH ×2 (05:36→20:54)
[2019-01-28] MEDS: EPINEPHrine 4 mg/1000 mL Drip (using amps) dosed in mcg/min IV SCH ×2 (05:46→10:37)
[2019-01-28 06:59] LABS: Activated Partial Thrombo Time 39.9 seconds (26.0-38.0); INR 4.38 (0.82-1.09)
[2019-01-28 07:04] LABS: Albumin 3.3 g/dL (3.2-5.2); Albumin/Globulin Ratio 1.1 (1-3); Calcium 8.7 mg/dL (8.6-10.3); EGFR African American 42.4 (>60); Indirect Bilirubin 1.1 mg/dL (0.3-1.0); Magnesium 2.4 mg/dL (1.9-2.7); Total Bilirubin 3.5 mg/dL (0.2-1.0); Total Protein 6.3 g/dL (6.4-8.9)
[2019-01-28 07:08] LABS: Potassium 5.7 mmol/L (3.5-5.0); Troponin I 0.35 ng/mL (<0.04)
[2019-01-28] MEDS: Propofol* 100 ML IV SCH ×3 (07:12→19:50)
[2019-01-28 07:16] LABS: Hematocrit 44 % (42-52); Hemoglobin 14.1 g/dL (14.0-18.0); Mean Corpuscular HGB Conc 32 g/dL (31-36); Mean Corpuscular Hemoglobin 30 pg (27-31); Mean Corpuscular Volume 94 fL (80-94); Mean Platelet Volume 8.9 fL (7.4-10.4); Platelet Count 141 10^3/uL (150-450); Red Blood Count 4.63 10^6 /uL (4.18-5.48); Red Cell Distribution Width 20 % (10-15); White Blood Count 18.7 10^3/uL (3.5-10.8)
[2019-01-28 07:34] LABS: Fibrinogen 320.1 mg/dL (110.8-404.3)
--- NOTE | 2019-01-28 08:55 | PN ---
<Christiano Harperlin - Last Filed: 01/28/19 08:48> Subjective Date of Service: 01/28/19 - cardiogenic shock, SHF, AFL Interval History: 73 yo with SOB, orthopnea, dementia. Found to have a severe CM, atrial flutter RVR unknown duration. Cath yesterday showed occluded RCA (hx GA age 55) and 50% LAD lesion. IRMA guided CV today: EF 10%, severe RV hypokinesis, Rouleaux formation LA, no clot in THERESA. Succesful CV, loaded with IV amiodarone 300 mg 30 mins post CV BP dropped, apneic breathing. Remazicon 0.3 mg given Admitted to ICU started on IV Dopamine and Levophed. Early this morning he apparently became aggressive, combative and ripped out IV line and went without drips for 10-15 min per night nurse Rica whom I personally spoke with. Line placed, patient intubated then apparently went into PEA arrest and received IV EPI and CPR. Now back on IV levophed, Dopamine and Epi. Ex Noemi at beside. Urine output now poor Medications Active Medications: Albuterol (Ventolin 2.5 Mg/3 Ml Neb.Zahraa*) 2.5 mg INH Q4H PRN PRN Reason: SOB/WHEEZING Aspirin (Aspirin Ec Tab*) 81 mg PO DAILY YANELIS Atorvastatin Calcium (Lipitor*) 20 mg PO BEDTIME YANELIS Last Admin: 01/27/19 20:35 Dose: 20 mg Dopamine HCl/Dextrose (Dopamine 800 Mg/250 Ml Ivprem*) 800 mg in 250 mls @ 9.355 mls/hr CENTR .Initial Rate YANELIS; Protocol Last Admin: 01/28/19 06:33 Dose: 9.355 mls/hr Propofol (Diprivan*) 100 mls @ 0 mls/hr IV .PER PROTOCOL YANELIS; Protocol Last Admin: 01/28/19 07:12 Dose: 13.1 mls/hr Midazolam HCl 100 mg/ Sodium (Chloride) 100 mls @ 1 mls/hr IV Q24H YANELIS; Protocol Last Admin: 01/28/19 03:26 Dose: Not Given Norepinephrine Bitartrate 8 mg (/ Sodium Chloride) 500 mls @ 93.75 mls/hr IV Q5H YANELIS; Protocol Last Admin: 01/28/19 04:19 Dose: 67.5 mls/hr Epinephrine HCl 4 mg/ Dextrose 1,000 mls @ 150 mls/hr IV Q6H YANELIS; Protocol Last Admin: 01/28/19 05:46 Dose: 150 mls/hr Midazolam HCl (Versed 2mg/2ml*) 2 mg IV SLOW PU Q1H PRN PRN Reason: sedation Last Admin: 01/28/19 07:10 Dose: 2 mg Ondansetron HCl (Zofran Inj*) 4 mg IV Q4H PRN PRN Reason: NAUSEA Pantoprazole Sodium (Protonix Iv*) 40 mg IV Q12HR YANELIS Last Admin: 01/28/19 05:36 Dose: 40 mg Objective Vital Signs: Temp Pulse Resp BP Pulse Ox 99.9 F 72 26 96/53 100 01/28/19 06:00 01/28/19 08:00 01/28/19 08:00 01/28/19 00:45 01/28/19 08:00 Oxygen Devices in Use Now: Mechanical Ventilator Appearance: chemically sedated on ventilator. ex at bedside. Eyes: PERRLA Ears/Nose/Mouth/Throat: Clear Oropharnyx, Mucous Membranes Moist, - - NG tube in left nare. dark blood noted in tube but it is clamped off. ET tube present. oral mucosa moist. Neck: Trachea Midline, No Thyroid Enlargement, Masses Respiratory: Symmetrical Chest Expansion and Respiratory Effort, Clear to Auscultation, - - mechanically ventilated via ET. breath sounds anteriorally clear with auscultation. Cardiovascular: RRR Abdominal: NL Sounds; No Tenderness; No Distention, - - soft. normoactive BS. no hematochezia, melena. Extremities: No Edema, - - 1+ bilateral pre tibial edema Skin: No Rash or Ulcers, - - extremities cold to touch, no rashes. boyd cath draining to gravity. concentrated urine, poor output. Neurological: NL Muscle Strength and Tone - on arrival. Clear dementia. Follows commands. Lines/Tubes/Other Access: Clean, Dry and Intact Endotracheal Tube, Clean, Dry and Intact Boyd, Clean, Dry and Intact Naso-enteral Tube, Clean, Dry and Intact Peripheral IV, Clean, Dry and Intact Central Line, Clean, Dry and Intact Arterial Line Laboratory Results: 01/28/19 06:07 01/28/19 06:07 INR (Anticoag Therapy) 4.38 (0.82-1.09) H 01/28/19 06:07 APTT 39.9 seconds (26.0-38.0) H 01/28/19 06:07 Total Bilirubin 3.50 mg/dL (0.2-1.0) H 01/28/19 06:07 Direct Bilirubin 2.40 mg/dL (0.03-0.18) H 01/28/19 06:07 Indirect Bilirubin 1.1 mg/dL (0.3-1.0) H 01/28/19 06:07 AST 4250 U/L (13-39) H 01/28/19 06:07 ALT 2527 U/L (7-52) H 01/28/19 06:07 Alkaline Phosphatase 216 U/L (34-104) H 01/28/19 06:07 B-Natriuretic Peptide 731 pg/mL (<=100) H 01/27/19 13:00 Total Protein 6.3 g/dL (6.4-8.9) L 01/28/19 06:07 Albumin 3.3 g/dL (3.2-5.2) 01/28/19 06:07 Globulin 3.0 g/dL (2-4) 01/28/19 06:07 Albumin/Globulin Ratio 1.1 (1-3) 01/28/19 06:07 Triglycerides < 10 mg/dL 01/27/19 13:00 Cholesterol < 27 mg/dL 01/27/19 13:00 LDL Cholesterol 16 mg/dL 01/27/19 13:00 HDL Cholesterol 9.4 mg/dL 01/27/19 13:00 TSH 3.10 mcIU/mL (0.34-5.60) 01/27/19 13:00 01/27/19 01/27/19 01/27/19 13:00 18:36 23:25 Troponin I 0.04 H* 0.05 H* 0.17 H* 01/28/19 06:07 Troponin I 0.35 H* Diagnostic Imaging: *[facility] [place] [address] Fax #: [phone] Transesophageal Echocardiogram Patient: Champ Vitale : 1945 Study Date: 01/27/2019 Age: 73 Gender: M HR: 115 bpm Height: 71 in /180.3 cm BSA: 2.2 m^2 Weight: 219.5 lb /99.8 kg BMI: 30.7 kg/m^2 *Mechanical Development Engineer: * Ariane Rossi [facility] *Referring Physician: * Tiffany Uribe MD *Reading Physician: * Tiffany Uribe MD Indications: Atrial Flutter. History: Coronary artery disease. PMH: Cardiomyopathy. Myocardial infarction. Risk factors: Hypertension. Diabetes mellitus. Dyslipidemia. Conclusions Summary: - Left ventricle: The cavity size is dilated. Wall thickness is mildly increased. Systolic function is severely reduced. The estimated ejection fraction is <10%. - Right ventricle: Systolic function is moderately to severely reduced. - Left atrium: There is no evidence of a thrombus in the atrial cavity or appendage. There is spontaneous echo contrast ("smoke") in the cavity and the appendage. - Atrial septum: A PFO is not demonstrated by color Doppler or agitated saline contrast. - Mitral valve: There is trace to mild regurgitation. - Aortic valve: Mild focal calcification involving the left coronary and noncoronary cusp. This report is only to be considered final once signed by the Provider(s) as displayed in the "<Electronically Signed by >" field (s). Absence of a signature indicates the report is in a draft status and still needs to be finalized. In the event this document was created by someone other than the signing Provider, the individual initiating the document will be listed in the "Entered by:" or "Dictated by:" jones. Cardiac Catheterization Report Patient: CHAMP VITALE /Age: 01 1945 73 Medical Record#: [id number] Admission Date: 01/26/19 Provider: Luther Vazquez MD CATH REPORT: DATE OF PROCEDURE: 01/26/19 - [facility] CATH PRIMARY CARE PHYSICIAN: Dr. Geovanni Lee. CATERING COOK: Dr. Tiffany Uribe. PROCEDURES: Right radial artery access with bilateral selective coronary cineangiography. HISTORY: A 73-year-old male with remote history of infarct, now with atrial flutter and decompensated heart failure with LVEF of 10%. PROCEDURE ACCESS: Right radial artery sheath 6F slender. MEDICATIONS: 1. Subcu lidocaine. 2. IV morphine 2 mg. 3. Nitroglycerin 300 mcg. 4. Heparin 3000 units IA. DIAGNOSTIC CATHETER: 5F TIG4. HEMODYNAMICS: Initial AO 101/75, final BP 109/77. ANGIOGRAPHY: Image quality somewhat degraded by his decompensated heart failure , and limitation of contrast because of his severe decompensated left-sided heart failure. During the procedure, the patient was comfortable, but had Cheynes-Roberts respirations, but was able to lie flat. Left main: The left main is normal in size without stenosis. LAD: The LAD is large, extends past the apex, it supplies a large first diagonal, a moderate mid diagonal which is preceded by a slit like 50% stenosis, distally the LAD extends to the apex. Circumflex: The circumflex is not dominant, is large with a moderate marginal and a moderate posterolateral, it has no significant stenosis. There are [id number] collaterals to the distal right coronary with filling of a large PDA and smaller posterolateral. RCA: The RCA has a SUPERVISOR GRAPHITE in the proximal segment with bridging collaterals, distally fills by [id number] collaterals. This report is only to be considered final once signed by the Provider(s) as displayed in the "<Electronically Signed by >" field (s). Absence of a signature indicates the report is in a draft status and still needs to be finalized. In the event this document was created by someone other than the signing Provider, the individual initiating the document will be listed in the "Entered by:" or "Dictated by:" jones. 1 of 2 EKG Data: Pre CV: a flutter 2:1 block, V rate 108 bpm Post CV: [id number]. Telemetry; Sinus rate 60's Assessment/Plan #1 Cardiogenic shock; Patient on IV levo, Dopamine and Epi. Went into PEA arrest early this morning after he pulled out peripheral line that was infusing Dopamine and levophed. Now mechanically intubated and sedated. Urine output poor , + transaminitis. Dr. Asencio and myself reviewed goals of care with health care proxy (Noemi) patient's ex . Offered transfer to [place]. She declined stating she " just wants to keep him alive until Thursday when his son gets here and if he is still on ventilator and drips then take him off". Patient is still full code. Noemi is to retrieve patient's advanced directives from home that are partially filled out. prognosis is guarded this was explained extensively to her. Will repeat venous gas. Heart rate is still in 60's. Spoke with Dr. Delacruz to give update. He desires IV dobutamine to be started. #2 Multisystem organ failure; LVEF 10% patient has known pulmonary fibrosis. urine output is < 20cc/hour with MONY, + liver shock. Will stop statin. #3 h/o AFL with RVR unknown duration of time; s/p CV 01/27/2019. Amio stopped. + dark blood noted in NG tube however H+H are stable, no hematochezia, melena. Off OAC given INR is >4. I asked nurse to flush tube given it is possible blood was due to trauma. #4 Disposition; condition is guarded. Dr. Asencio personally saw and examined patient and spoke with Noemi. He agrees with above plan of care. Attending: Graeme Asencio <Graeme Asencio - Last Filed: 01/28/19 13:35> Medications Active Medications: Albuterol (Ventolin 2.5 Mg/3 Ml Neb.Zahraa*) 2.5 mg INH Q4H PRN PRN Reason: SOB/WHEEZING Aspirin (Aspirin Ec Tab*) 81 mg PO DAILY YANELIS Last Admin: 01/28/19 11:32 Dose: Not Given Chlorhexidine Gluconate (Peridex Mouth Wash 0.12%*) 15 ml TOPICAL Q4H YANELIS Last Admin: 01/28/19 11:40 Dose: 15 ml Dopamine HCl/Dextrose (Dopamine 800 Mg/250 Ml Ivprem*) 800 mg in 250 mls @ 9.355 mls/hr CENTR .Initial Rate [facility]; Protocol Last Admin: 01/28/19 12:25 Dose: 43.5 mls/hr Propofol (Diprivan*) 100 mls @ 0 mls/hr IV .PER PROTOCOL [facility]; Protocol Last Admin: 01/28/19 07:12 Dose: 13.1 mls/hr Midazolam HCl 100 mg/ Sodium (Chloride) 100 mls @ 1 mls/hr IV Q24H YANELIS; Protocol Last Admin: 01/28/19 03:26 Dose: Not Given Norepinephrine Bitartrate 8 mg (/ Sodium Chloride) 500 mls @ 93.75 mls/hr IV Q5H YANELIS; Protocol Last Admin: 01/28/19 10:37 Dose: 131 mls/hr Dobutamine HCl 500 mg/ (Dextrose) 100 mls @ 6.96 mls/hr IV Q24H YANELIS Last Admin: 01/28/19 11:06 Dose: Not Given Epinephrine HCl 4 mg/ Dextrose 1,000 mls @ 150 mls/hr IV Q6H [facility]; Protocol Last Admin: 01/28/19 11:50 Dose: Not Given Midazolam HCl (Versed 2mg/2ml*) 2 mg IV SLOW PU Q1H PRN PRN Reason: sedation Last Admin: 01/28/19 07:10 Dose: 2 mg Pantoprazole Sodium (Protonix Iv*) 40 mg IV Q12HR YANELIS Last Admin: 01/28/19 05:36 Dose: 40 mg Phytonadione (Vitamin K1 Subcut/Im Adult*) 10 mg SUBCUT ONCE ONE Stop: 01/28/19 14:01 Objective Vital Signs: Temp Pulse Resp BP Pulse Ox 100.8 F 68 26 96/53 94 01/28/19 13:00 01/28/19 13:00 01/28/19 11:00 01/28/19 00:45 01/28/19 13:00 Laboratory Results: 01/28/19 06:07 01/28/19 06:07 INR (Anticoag Therapy) 4.38 (0.82-1.09) H 01/28/19 06:07 APTT 39.9 seconds (26.0-38.0) H 01/28/19 06:07 Total Bilirubin 3.50 mg/dL (0.2-1.0) H 01/28/19 06:07 Direct Bilirubin 2.40 mg/dL (0.03-0.18) H 01/28/19 06:07 Indirect Bilirubin 1.1 mg/dL (0.3-1.0) H 01/28/19 06:07 AST 4250 U/L (13-39) H 01/28/19 06:07 ALT 2527 U/L (7-52) H 01/28/19 06:07 Alkaline Phosphatase 216 U/L (34-104) H 01/28/19 06:07 B-Natriuretic Peptide 731 pg/mL (<=100) H 01/27/19 13:00 Total Protein 6.3 g/dL (6.4-8.9) L 01/28/19 06:07 Albumin 3.3 g/dL (3.2-5.2) 01/28/19 06:07 Globulin 3.0 g/dL (2-4) 01/28/19 06:07 Albumin/Globulin Ratio 1.1 (1-3) 01/28/19 06:07 Triglycerides < 10 mg/dL 01/27/19 13:00 Cholesterol < 27 mg/dL 01/27/19 13:00 LDL Cholesterol 16 mg/dL 01/27/19 13:00 HDL Cholesterol 9.4 mg/dL 01/27/19 13:00 TSH 3.10 mcIU/mL (0.34-5.60) 01/27/19 13:00 01/27/19 01/27/19 01/27/19 13:00 18:36 23:25 Troponin I 0.04 H* 0.05 H* 0.17 H* 01/28/19 06:07 Troponin I 0.35 H* Assessment/Plan 01.28.2019 1:32 pm: pt's clinical condition and events discussed at length with pt's ex in the pt's exam room and with WEB MARKETING ASSISTANT James Harper. I gree with the above evaluation and plan of care. Prognosis is guarded at best. Awaiting further instructions on DNR status.
[2019-01-28] MEDS ORDERED: DoBUTamine INJ* 500 MG in D5W 100 ML BAG* 60 ML IV SCH ×2 (10:00→10:49)
[2019-01-28] MEDS ORDERED: Furosemide IV* 10 MG/ML 10 ML VIAL (100 MG) IV ONE (10:51)
[2019-01-28] MEDS: Aspirin EC TAB* 81 MG TAB.EC PO SCH (11:32)
[2019-01-28] MEDS: Chlorhexidine MOUTHWASH 0.12%* 15 ML UDC TOPICAL SCH ×4 (11:40→20:54)
[2019-01-28] MEDS: [UNRECOGNIZED DRUG - REMARK] IV SCH ×6 (11:50→22:57)
--- NOTE | 2019-01-28 12:28 | PN ---
Progress Note - Progress Note Date of Service: 01/28/19 Note: PRogress Note -- Critical Care 24 hour events -noted cardiac arrest yesterday; PEA, ROSC+ -remains on levo, epi, dopa max doses -anuric most of night -this AM sedated on low dose propofol -starting to make urine this morning now -ex- discusseed with cardiology, no plan for transfer to [facility], remain full code till Son arrives today. -AM hemodynamics with CI 1.3 on above pressors; started on dobutamine now Tele: appears to be sinus rhythm on tele, HR 70s Vitals: Vital Signs Temp 100.2 F 01/28/19 09:01 Pulse 67 01/28/19 09:01 Resp 26 01/28/19 09:00 BP 96/53 01/28/19 00:45 Pulse Ox 98 01/28/19 09:01 Intake & Output 01/27/19 01/28/19 01/28/19 18:59 06:59 18:59 Intake Total 1486 2403 Output Total 280 35 25 Balance 1206 2368 -25 Weight 116.165 kg 116 kg Intake: IV Fluids 584 26 Magnesium 16 NS (0.9%) 18 26 IVPB 54 NS (0.9%) 54 Medicated IV 368 2257 CC - Dopamine 47 418 CC - Norepinephrine/ 321 667 Levophed Calcium Chloride 110 Epinepherine 1000 propofol 62 Oral 480 120 Output: Urine 280 30 0 Boyd 5 25 O2/Vent: AC 22/500/+10/70 Infusions: levophed 20, dopamine 20, epi 20; dobutamine 5, propofol 10 Current Medications: Albuterol (Ventolin 2.5 Mg/3 Ml Neb.Zahraa*) 2.5 mg INH Q4H PRN PRN Reason: SOB/WHEEZING Aspirin (Aspirin Ec Tab*) 81 mg PO DAILY YANELIS Last Admin: 01/28/19 11:32 Dose: Not Given Chlorhexidine Gluconate (Peridex Mouth Wash 0.12%*) 15 ml TOPICAL Q4H YANELIS Last Admin: 01/28/19 11:40 Dose: 15 ml Dopamine HCl/Dextrose (Dopamine 800 Mg/250 Ml Ivprem*) 800 mg in 250 mls @ 9.355 mls/hr CENTR .Initial Rate YANELIS; Protocol Last Admin: 01/28/19 12:25 Dose: 43.5 mls/hr Propofol (Diprivan*) 100 mls @ 0 mls/hr IV .PER PROTOCOL YANELIS; Protocol Last Admin: 01/28/19 07:12 Dose: 13.1 mls/hr Midazolam HCl 100 mg/ Sodium (Chloride) 100 mls @ 1 mls/hr IV Q24H YANELIS; Protocol Last Admin: 01/28/19 03:26 Dose: Not Given Norepinephrine Bitartrate 8 mg (/ Sodium Chloride) 500 mls @ 93.75 mls/hr IV Q5H YANELIS; Protocol Last Admin: 01/28/19 10:37 Dose: 131 mls/hr Dobutamine HCl 500 mg/ (Dextrose) 100 mls @ 6.96 mls/hr IV Q24H [facility] Last Admin: 01/28/19 11:06 Dose: Not Given Epinephrine HCl 4 mg/ Dextrose 1,000 mls @ 150 mls/hr IV Q6H [facility]; Protocol Last Admin: 01/28/19 11:50 Dose: Not Given Midazolam HCl (Versed 2mg/2ml*) 2 mg IV SLOW PU Q1H PRN PRN Reason: sedation Last Admin: 01/28/19 07:10 Dose: 2 mg Pantoprazole Sodium (Protonix Iv*) 40 mg IV Q12HR [facility] Last Admin: 01/28/19 05:36 Dose: 40 mg Physical Exam: Constitutional: intubated, sedated, no distress, no diaphoresis Head: normocephalic, atraumatic Eyes: no pallor, no icterus ENT: moist mucous membranes, improved cyanosis Neck: soft, supple, no jvd, CVS: normal rate, regular, no murmur Chest/Resp: bilateral air entry, no rhales, no wheeze, no rhonchi, no acc muscle use Abdomen/GI: soft, nontender, nondistended, BS+ Ext/Msk: cool ext+, pulses+, no edema Skin: intact, cool Neuro: sedated, pupils sluggish, cough+; limited neuro exam Psych: unable to assess Labs: Laboratory Results - last 24 hr 01/27/19 01/27/19 01/27/19 13:00 13:00 13:00 WBC RBC Hgb Hct MCV MCH MCHC RDW Plt Count MPV Neut % (Auto) Lymph % (Auto) [place] % (Auto) Eos % (Auto) Baso % (Auto) Absolute Neuts (auto) Absolute Lymphs (auto) Absolute Monos (auto) Absolute Eos (auto) Absolute Basos (auto) Absolute Nucleated RBC Nucleated RBC % Polychromasia INR (Anticoag Therapy) APTT Fibrinogen Patient Temperature ABG pH ABG pH (Temp Correct) ABG pCO2 ABG pCO2 (Temp Corrct ABG pO2 ABG pO2 (Temp Correct ABG HCO3 ABG O2 Saturation ABG Base Excess VBG pH VBG pCO2 VBG pO2 VBG HCO3 VBG O2 Saturation VBG Base Excess Respiration Rate O2 Delivery Device Ventilator Type Vent Mode FiO2 Inspiratory Time PEEP Pressure Support Pressure Control EPAP IPAP BiPAP Sodium 139 Potassium 3.1 L Chloride 116 H Carbon Dioxide 16 L Anion Gap 7 BUN 16 Creatinine 0.99 Est GFR ( Amer) 89.4 Est GFR (Non-Af Amer) 73.9 BUN/Creatinine Ratio 16.2 Glucose 275 H Hemoglobin A1c 7.5 H Lactic Acid Calcium 5.4 L* Ionized Calcium Phosphorus 3.2 Magnesium 1.1 L Total Bilirubin 2.40 H Direct Bilirubin Indirect Bilirubin AST 55 H ALT 45 Alkaline Phosphatase 140 H Troponin I 0.04 H* B-Natriuretic Peptide 731 H Total Protein 4.4 L Albumin 2.3 L Globulin 2.1 Albumin/Globulin Ratio 1.1 Triglycerides < 10 Cholesterol < 27 LDL Cholesterol 16 HDL Cholesterol 9.4 TSH 3.10 Blood Type Antibody Screen 01/27/19 01/27/19 01/27/19 13:00 14:15 18:36 WBC 6.5 RBC 3.59 L Hgb 11.0 L Hct 34 L MCV 96 H MCH 31 MCHC 32 RDW 20 H Plt Count 117 L MPV 8.1 Neut % (Auto) 73.6 Lymph % (Auto) 16.3 [place] % (Auto) 8.9 Eos % (Auto) 0.8 Baso % (Auto) 0.4 Absolute Neuts (auto) 4.8 Absolute Lymphs (auto) 1.1 Absolute Monos (auto) 0.6 Absolute Eos (auto) 0.1 Absolute Basos (auto) 0.0 Absolute Nucleated RBC 0.0 Nucleated RBC % 0.2 Polychromasia INR (Anticoag Therapy) APTT Fibrinogen Patient Temperature ABG pH ABG pH (Temp Correct) ABG pCO2 ABG pCO2 (Temp Corrct ABG pO2 ABG pO2 (Temp Correct ABG HCO3 ABG O2 Saturation ABG Base Excess VBG pH VBG pCO2 VBG pO2 VBG HCO3 VBG O2 Saturation VBG Base Excess Respiration Rate O2 Delivery Device Ventilator Type Vent Mode FiO2 Inspiratory Time PEEP Pressure Support Pressure Control EPAP IPAP BiPAP Sodium Potassium Chloride Carbon Dioxide Anion Gap BUN Creatinine Est GFR ( Amer) Est GFR (Non-Af Amer) BUN/Creatinine Ratio Glucose Hemoglobin A1c Lactic Acid < 0.3 L Calcium Ionized Calcium Phosphorus Magnesium Total Bilirubin Direct Bilirubin Indirect Bilirubin AST ALT Alkaline Phosphatase Troponin I 0.05 H* B-Natriuretic Peptide Total Protein Albumin Globulin Albumin/Globulin Ratio Triglycerides Cholesterol LDL Cholesterol HDL Cholesterol TSH Blood Type Antibody Screen 01/27/19 01/27/19 01/27/19 23:25 23:25 23:25 WBC RBC Hgb Hct MCV MCH MCHC RDW Plt Count MPV Neut % (Auto) Lymph % (Auto) [place] % (Auto) Eos % (Auto) Baso % (Auto) Absolute Neuts (auto) Absolute Lymphs (auto) Absolute Monos (auto) Absolute Eos (auto) Absolute Basos (auto) Absolute Nucleated RBC Nucleated RBC % Polychromasia INR (Anticoag Therapy) 3.86 H APTT 38.3 H Fibrinogen Patient Temperature ABG pH ABG pH (Temp Correct) ABG pCO2 ABG pCO2 (Temp Corrct ABG pO2 ABG pO2 (Temp Correct ABG HCO3 ABG O2 Saturation ABG Base Excess VBG pH VBG pCO2 VBG pO2 VBG HCO3 VBG O2 Saturation VBG Base Excess Respiration Rate O2 Delivery Device Ventilator Type Vent Mode FiO2 Inspiratory Time PEEP Pressure Support Pressure Control EPAP IPAP BiPAP Sodium 137 Potassium 6.2 H* D Chloride 102 Carbon Dioxide 23 Anion Gap 12 H BUN 29 H Creatinine 1.56 H Est GFR ( Amer) 52.9 Est GFR (Non-Af Amer) 43.7 BUN/Creatinine Ratio 18.6 Glucose 121 H Hemoglobin A1c Lactic Acid Calcium 8.4 L Ionized Calcium 1.04 L Phosphorus 6.8 H Magnesium Total Bilirubin Direct Bilirubin Indirect Bilirubin AST ALT Alkaline Phosphatase Troponin I 0.17 H* B-Natriuretic Peptide Total Protein Albumin Globulin Albumin/Globulin Ratio Triglycerides Cholesterol LDL Cholesterol HDL Cholesterol TSH Blood Type Antibody Screen 01/27/19 01/27/19 01/27/19 23:25 23:25 23:25 WBC 16.3 H RBC 4.62 Hgb 13.9 L Hct 45 MCV 97 H MCH 30 MCHC 31 RDW 20 H Plt Count 129 L MPV 8.5 Neut % (Auto) 69.1 Lymph % (Auto) 19.8 [place] % (Auto) 10.8 Eos % (Auto) 0.0 Baso % (Auto) 0.3 Absolute Neuts (auto) 11.2 H Absolute Lymphs (auto) 3.2 Absolute Monos (auto) 1.8 H Absolute Eos (auto) 0.0 Absolute Basos (auto) 0.0 Absolute Nucleated RBC 0.0 Nucleated RBC % 0.2 Polychromasia 2+ INR (Anticoag Therapy) APTT Fibrinogen Patient Temperature ABG pH ABG pH (Temp Correct) ABG pCO2 ABG pCO2 (Temp Corrct ABG pO2 ABG pO2 (Temp Correct ABG HCO3 ABG O2 Saturation ABG Base Excess VBG pH VBG pCO2 VBG pO2 VBG HCO3 VBG O2 Saturation VBG Base Excess Respiration Rate O2 Delivery Device Ventilator Type Vent Mode FiO2 Inspiratory Time PEEP Pressure Support Pressure Control EPAP IPAP BiPAP Sodium Potassium Chloride Carbon Dioxide Anion Gap BUN Creatinine Est GFR ( Amer) Est GFR (Non-Af Amer) BUN/Creatinine Ratio Glucose Hemoglobin A1c Lactic Acid 5.9 H* Calcium Ionized Calcium Phosphorus Magnesium Total Bilirubin Direct Bilirubin Indirect Bilirubin AST ALT Alkaline Phosphatase Troponin I B-Natriuretic Peptide Total Protein Albumin Globulin Albumin/Globulin Ratio Triglycerides Cholesterol LDL Cholesterol HDL Cholesterol TSH Blood Type O Positive Antibody Screen Negative 01/27/19 01/28/19 01/28/19 23:25 02:20 03:00 WBC RBC Hgb Hct MCV MCH MCHC RDW Plt Count MPV Neut % (Auto) Lymph % (Auto) [place] % (Auto) Eos % (Auto) Baso % (Auto) Absolute Neuts (auto) Absolute Lymphs (auto) Absolute Monos (auto) Absolute Eos (auto) Absolute Basos (auto) Absolute Nucleated RBC Nucleated RBC % Polychromasia INR (Anticoag Therapy) APTT Fibrinogen Patient Temperature Not Reportable Not Reportable ABG pH 7.14 L* 7.24 L ABG pH (Temp Correct) Not Reportable Not Reportable ABG pCO2 49 H 42 ABG pCO2 (Temp Corrct Not Reportable Not Reportable ABG pO2 161 H 199 H ABG pO2 (Temp Correct Not Reportable Not Reportable ABG HCO3 15.4 L 17.9 L ABG O2 Saturation 99.5 H 99.8 H ABG Base Excess -12.3 L -9.0 L VBG pH 7.21 L VBG pCO2 51 VBG pO2 42.0 VBG HCO3 17.9 L VBG O2 Saturation 61.5 L VBG Base Excess -7.7 L Respiration Rate 16 22 O2 Delivery Device vent vent Ventilator Type 500 500 Vent Mode cmv cmv FiO2 100 70 Inspiratory Time Not Reportable Not Reportable PEEP 5 8 Pressure Support Not Reportable Not Reportable Pressure Control Not Reportable Not Reportable EPAP Not Reportable Not Reportable IPAP Not Reportable Not Reportable BiPAP Not Reportable Not Reportable Sodium Potassium Chloride Carbon Dioxide Anion Gap BUN Creatinine Est GFR ( Amer) Est GFR (Non-Af Amer) BUN/Creatinine Ratio Glucose Hemoglobin A1c Lactic Acid Calcium Ionized Calcium Phosphorus Magnesium Total Bilirubin Direct Bilirubin Indirect Bilirubin AST ALT Alkaline Phosphatase Troponin I B-Natriuretic Peptide Total Protein Albumin Globulin Albumin/Globulin Ratio Triglycerides Cholesterol LDL Cholesterol HDL Cholesterol TSH Blood Type Antibody Screen 01/28/19 01/28/19 01/28/19 06:00 06:07 06:07 WBC 18.7 H RBC 4.63 Hgb 14.1 Hct 44 MCV 94 MCH 30 MCHC 32 RDW 20 H Plt Count 141 L MPV 8.9 Neut % (Auto) Lymph % (Auto) [place] % (Auto) Eos % (Auto) Baso % (Auto) Absolute Neuts (auto) Absolute Lymphs (auto) Absolute Monos (auto) Absolute Eos (auto) Absolute Basos (auto) Absolute Nucleated RBC Nucleated RBC % Polychromasia INR (Anticoag Therapy) APTT Fibrinogen Patient Temperature ABG pH ABG pH (Temp Correct) ABG pCO2 ABG pCO2 (Temp Corrct ABG pO2 ABG pO2 (Temp Correct ABG HCO3 ABG O2 Saturation ABG Base Excess VBG pH VBG pCO2 VBG pO2 VBG HCO3 VBG O2 Saturation VBG Base Excess Respiration Rate O2 Delivery Device Ventilator Type Vent Mode FiO2 Inspiratory Time PEEP Pressure Support Pressure Control EPAP IPAP BiPAP Sodium 132 L Potassium 5.7 H Chloride 101 Carbon Dioxide 25 Anion Gap 6 BUN 34 H Creatinine 1.89 H Est GFR ( Amer) 42.4 Est GFR (Non-Af Amer) 35.0 BUN/Creatinine Ratio 18.0 Glucose 234 H Hemoglobin A1c Lactic Acid 3.0 H* Calcium 8.7 Ionized Calcium Phosphorus 6.0 H Magnesium 2.4 Total Bilirubin 3.50 H Direct Bilirubin 2.40 H Indirect Bilirubin 1.1 H AST 4250 H ALT 2527 H Alkaline Phosphatase 216 H Troponin I 0.35 H* B-Natriuretic Peptide Total Protein 6.3 L Albumin 3.3 Globulin 3.0 Albumin/Globulin Ratio 1.1 Triglycerides Cholesterol LDL Cholesterol HDL Cholesterol TSH Blood Type Antibody Screen 01/28/19 01/28/19 01/28/19 06:07 09:30 09:30 WBC RBC Hgb Hct MCV MCH MCHC RDW Plt Count MPV Neut % (Auto) Lymph % (Auto) [place] % (Auto) Eos % (Auto) Baso % (Auto) Absolute Neuts (auto) Absolute Lymphs (auto) Absolute Monos (auto) Absolute Eos (auto) Absolute Basos (auto) Absolute Nucleated RBC Nucleated RBC % Polychromasia INR (Anticoag Therapy) 4.38 H APTT 39.9 H Fibrinogen 320.1 Patient Temperature ABG pH ABG pH (Temp Correct) ABG pCO2 ABG pCO2 (Temp Corrct ABG pO2 ABG pO2 (Temp Correct ABG HCO3 ABG O2 Saturation ABG Base Excess VBG pH 7.16 L VBG pCO2 60 H VBG pO2 < 38.0 VBG HCO3 17.4 L VBG O2 Saturation 49.2 L VBG Base Excess -8.0 L Respiration Rate O2 Delivery Device Ventilator Type Vent Mode FiO2 Inspiratory Time PEEP Pressure Support Pressure Control EPAP IPAP BiPAP Sodium Potassium Chloride Carbon Dioxide Anion Gap BUN Creatinine Est GFR ( Amer) Est GFR (Non-Af Amer) BUN/Creatinine Ratio Glucose Hemoglobin A1c Lactic Acid 2.8 H* Calcium Ionized Calcium Phosphorus Magnesium Total Bilirubin Direct Bilirubin Indirect Bilirubin AST ALT Alkaline Phosphatase Troponin I B-Natriuretic Peptide Total Protein Albumin Globulin Albumin/Globulin Ratio Triglycerides Cholesterol LDL Cholesterol HDL Cholesterol TSH Blood Type Antibody Screen Imaging: cxr 01/28 - ett above tiffany; bilateral pulmonary edema+ Assessment: 73y M w/pmhx of 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 Today 01/27 he was brought in for IRMA and Aflutter Cardioversion. Noted to have Worsened LV systolic and RV systolic dysfunction compared to prior old echocardiograms, suspected to be from likely uncontrolled arrhythmia Aflutter now. He was given fentanyl and versed. 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 No significant events, then given amiodarone 300mg IV load post and HR dropped to 50s, he became cyanotic, hypotensive. DATA ANALYST called, started on levophed, oxygen, moved to ICU, started on dopamine for bradycardia. -Cardiogenic shock -PEA Cardiac arrest 01/27 -acute hypoxic and hypercapneic respiratory failure; on home O2 -acute pulmonary edema -Bradycardia -MONY -shock liver -coagulopathy -Upper GI bleed -Atrial Flutter; s/p cardioversion 01/27/19 -Delirium Severe Biventricular Systolic dysfunction NICMP CAD, occluded RCA DM HTN IPF, Sleep Apnea Plan: Neuro- -sedated on propofol -no plan for sedation vacation -reassess tomorrow once perfusion improved/stable -avoid fevers, cooling blanket as needed -Delirium prec; avoid BDZ CVS- -Cardiogenic shock; likely bradycardia further ppt'ed downward spiral -on dopa/lev/epi max; added dobutamine -[place] Melly in place; last CI 1.3; CVP ~20, PCW 15, PAs 50s -lasix 60mg IV x1; if making urine start infusion -family stated no transfer for higher cardiac care, he would be candidate for ECMO/Impella -discussed with cardiology services -EKG now -no further amio -hold AC, off eliquis now; monitor for bleeding; no further GI bleed noted -hg stable -trend LA, slow downrise; no mottling in peripheries noted -hold antihypertensives/BB -Titrate Pressors to Maintain MAP>65 Resp- -intubated on AC 70% -CXR 01/28 with pulmonary edema -IV diuretics -not much secretions -maintain peep 10 to keep recruitement, once lower fio2, will dec to 8 -VAP bundle -Wean Fio2 to keep sat>92% -Bronchodilators PRN, Aspiration prec ID- afebrile. wbc 18, suspect reactive from shock state. CXR 01/28 with pulm edema+. monitoring off abx. GI- -NPO; NGT+ -No further blood from NGT; cont PPI IV bid for UGI bleed -GI prophylaxis Renal- -MONY, rising Cr and anuric; suspect from cardiac arrest/shock and ischemic ATN now -LA+ but no acidosis now; hyperkalemia; check BMP at 2pm -lasix 60mg iv x1 now; close monitroing; no indication for HD yet -obtain Nephrology consult -will have lasix infusion if he starts to diurese -strict I/O, replete to keep K>4, Mg>2 -boyd as indicated Heme- -hg stable -off AC due to bleeding/coagulopathy -INR >4; coagulopathy from shock liver now -monitor for bleeding -if INR higher tomorrow or any bleeidng, will given FFP -Vit k 10mg SQ x1 now -plt okay, fibrinogen elevated Endo- Maintain BG<200, insulin protocol as needed Musculsk- pressure ulcer prophylaxis. Bedrest. Wounds- none Nutrition- NPO DVT prophylaxis: SCDs; none due to bleeding and coaguloapathy GI prophylaxis: ppi Central Line: Right fem 01/27; Right IJ intro/[place] 01/28 Arterial Line: Right Rad 01/28 Boyd Cathetor: yes Disposition: Patient requires Critical Care/ICU for cardiogenic shock, cardiac arrest, MONY, respiratory failure and intubated Patient Clinical Status: unstable, critical Code Status: full code Total Critical Care time is 65 minutes, excluding procedures/teaching Daquan Delacruz MD Comptometrist (Electronically Signed)
[2019-01-28] MEDS ORDERED: Phytonadione SUBCUT/IM Adult* 10 MG/ML AMP (IM or SQ not preferred route) SUBCUT ONE ×2 (12:51→14:00)
--- NOTE | 2019-01-28 13:28 | CONSULT ---
Consult Consult: Consult requested By: [employer]-Dr. Delacruz Consult requested for: MONY in a setting of Cardiac Arrest. Consult By: Dr. Kain Pryor, [facility] Nephrology HPI: 73 yo wm. Baseline sCr Normal, s/p 10 min cardiac Arrest---> into MONY Hes known to have severe CMP, AFib/RVR. LVEF 10%, severe RV hypokinesis. s/p D/C Cardioversion for AFib 01/27/19, developed respiratory arrest, then shortly after he went into cardiac arrest. Pt now in MICU intubated/sedated. His NOK is his ex-, has power of ip technology transactions attorney- his oldest son lives and works in [facility], is in route to [place]. In MONY, Shock liver & Coagulopathic INR 4. Anuric, UOP 50cc, on 4 Pressors: on levo, epi, dopa, dobut max doses Per nurses, UOP slightly better this AM, starting to make some UOP. NOK declined a transfer to higher center, remain full code. NOK refused aggressive measures-including HD. She's aware he's very likely to need [employer] [place] but I personally doubt he will tolerate intermittent HD, because of his Shock. 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 Cardiac Arrest InPt Meds: Albuterol (Ventolin 2.5 Mg/3 Ml Neb.Zahraa*) 2.5 mg INH Q4H PRN PRN Reason: SOB/WHEEZING Aspirin (Aspirin Ec Tab*) 81 mg PO DAILY YANELIS Last Admin: 01/28/19 11:32 Dose: Not Given Chlorhexidine Gluconate (Peridex Mouth Wash 0.12%*) 15 ml TOPICAL Q4H YANELIS Last Admin: 01/28/19 14:13 Dose: 15 ml Dopamine HCl/Dextrose (Dopamine 800 Mg/250 Ml Ivprem*) 800 mg in 250 mls @ 9.355 mls/hr CENTR .Initial Rate YANELIS; Protocol Last Admin: 01/28/19 12:25 Dose: 43.5 mls/hr Propofol (Diprivan*) 100 mls @ 0 mls/hr IV .PER PROTOCOL YANELIS; Protocol Last Admin: 01/28/19 13:30 Dose: 13.9 mls/hr Midazolam HCl 100 mg/ Sodium (Chloride) 100 mls @ 1 mls/hr IV Q24H YANELIS; Protocol Last Admin: 01/28/19 03:26 Dose: Not Given Norepinephrine Bitartrate 8 mg (/ Sodium Chloride) 500 mls @ 93.75 mls/hr IV Q5H YANELIS; Protocol Last Admin: 01/28/19 14:17 Dose: 150 mls/hr Dobutamine HCl 500 mg/ (Dextrose) 100 mls @ 6.96 mls/hr IV Q24H YANELIS Last Admin: 01/28/19 11:06 Dose: Not Given Epinephrine HCl 4 mg/ Dextrose 1,000 mls @ 150 mls/hr IV Q6H [facility]; Protocol Last Admin: 01/28/19 13:34 Dose: 300 mls/hr Midazolam HCl (Versed 2mg/2ml*) 2 mg IV SLOW PU Q1H PRN PRN Reason: sedation Last Admin: 01/28/19 07:10 Dose: 2 mg Pantoprazole Sodium (Protonix Iv*) 40 mg IV Q12HR YANELIS Last Admin: 01/28/19 05:36 Dose: 40 mg Allergies, Social History,Family History &Surgical History:Reviewed 12-Point Review of Systemobtained: Can't obtain as patient is sedated Objective: 10 Pointmulti systemexam: Negative except pertinent positive Vital Signs: Sedated intubated FiO2 25% Abdomen No Ascites Heart: AFib Lungs: B/L Crackles Extremities: No edema, rash Laboratory Reviewed 01/27/19 01/27/19 01/28/19 23:25 23:25 02:20 WBC RBC Hgb Hct MCV MCH MCHC RDW Plt Count MPV Neut % (Auto) Lymph % (Auto) [place] % (Auto) Eos % (Auto) Baso % (Auto) Absolute Neuts (auto) Absolute Lymphs (auto) Absolute Monos (auto) Absolute Eos (auto) Absolute Basos (auto) Absolute Nucleated RBC Nucleated RBC % Polychromasia INR (Anticoag Therapy) APTT Fibrinogen Patient Temperature Not Reportable ABG pH 7.14 L* ABG pH (Temp Correct) Not Reportable ABG pCO2 49 H ABG pCO2 (Temp Corrct Not Reportable ABG pO2 161 H ABG pO2 (Temp Correct Not Reportable ABG HCO3 15.4 L ABG O2 Saturation 99.5 H ABG Base Excess -12.3 L VBG pH 7.21 L VBG pCO2 51 VBG pO2 42.0 VBG HCO3 17.9 L VBG O2 Saturation 61.5 L VBG Base Excess -7.7 L Respiration Rate 16 O2 Delivery Device vent Ventilator Type 500 Vent Mode cmv FiO2 100 Inspiratory Time Not Reportable PEEP 5 Pressure Support Not Reportable Pressure Control Not Reportable EPAP Not Reportable IPAP Not Reportable BiPAP Not Reportable Sodium Potassium Chloride Carbon Dioxide Anion Gap BUN Creatinine Est GFR ( Amer) Est GFR (Non-Af Amer) BUN/Creatinine Ratio Glucose Lactic Acid Calcium Ionized Calcium Phosphorus Magnesium Total Bilirubin Direct Bilirubin Indirect Bilirubin AST ALT Alkaline Phosphatase Troponin I Total Protein Albumin Globulin Albumin/Globulin Ratio Blood Type O Positive Antibody Screen Negative 01/28/19 01/28/19 01/28/19 03:00 06:00 06:07 WBC RBC Hgb Hct MCV MCH MCHC RDW Plt Count MPV Neut % (Auto) Lymph % (Auto) [place] % (Auto) Eos % (Auto) Baso % (Auto) Absolute Neuts (auto) Absolute Lymphs (auto) Absolute Monos (auto) Absolute Eos (auto) Absolute Basos (auto) Absolute Nucleated RBC Nucleated RBC % Polychromasia INR (Anticoag Therapy) APTT Fibrinogen Patient Temperature Not Reportable ABG pH 7.24 L ABG pH (Temp Correct) Not Reportable ABG pCO2 42 ABG pCO2 (Temp Corrct Not Reportable ABG pO2 199 H ABG pO2 (Temp Correct Not Reportable ABG HCO3 17.9 L ABG O2 Saturation 99.8 H ABG Base Excess -9.0 L VBG pH VBG pCO2 VBG pO2 VBG HCO3 VBG O2 Saturation VBG Base Excess Respiration Rate 22 O2 Delivery Device vent Ventilator Type 500 Vent Mode cmv FiO2 70 Inspiratory Time Not Reportable PEEP 8 Pressure Support Not Reportable Pressure Control Not Reportable EPAP Not Reportable IPAP Not Reportable BiPAP Not Reportable Sodium 132 L Potassium 5.7 H Chloride 101 Carbon Dioxide 25 Anion Gap 6 BUN 34 H Creatinine 1.89 H Est GFR ( Amer) 42.4 Est GFR (Non-Af Amer) 35.0 BUN/Creatinine Ratio 18.0 Glucose 234 H Lactic Acid 3.0 H* Calcium 8.7 Ionized Calcium Phosphorus 6.0 H Magnesium 2.4 Total Bilirubin 3.50 H Direct Bilirubin 2.40 H Indirect Bilirubin 1.1 H AST 4250 H ALT 2527 H Alkaline Phosphatase 216 H Troponin I 0.35 H* Total Protein 6.3 L Albumin 3.3 Globulin 3.0 Albumin/Globulin Ratio 1.1 Blood Type Antibody Screen 01/28/19 01/28/19 01/28/19 06:07 06:07 09:30 WBC 18.7 H RBC 4.63 Hgb 14.1 Hct 44 MCV 94 MCH 30 MCHC 32 RDW 20 H Plt Count 141 L MPV 8.9 Neut % (Auto) Lymph % (Auto) [place] % (Auto) Eos % (Auto) Baso % (Auto) Absolute Neuts (auto) Absolute Lymphs (auto) Absolute Monos (auto) Absolute Eos (auto) Absolute Basos (auto) Absolute Nucleated RBC Nucleated RBC % Polychromasia INR (Anticoag Therapy) 4.38 H APTT 39.9 H Fibrinogen 320.1 Patient Temperature ABG pH ABG pH (Temp Correct) ABG pCO2 ABG pCO2 (Temp Corrct ABG pO2 ABG pO2 (Temp Correct ABG HCO3 ABG O2 Saturation ABG Base Excess VBG pH 7.16 L VBG pCO2 60 H VBG pO2 < 38.0 VBG HCO3 17.4 L VBG O2 Saturation 49.2 L VBG Base Excess -8.0 L Respiration Rate O2 Delivery Device Ventilator Type Vent Mode FiO2 Inspiratory Time PEEP Pressure Support Pressure Control EPAP IPAP BiPAP Sodium Potassium Chloride Carbon Dioxide Anion Gap BUN Creatinine Est GFR ( Amer) Est GFR (Non-Af Amer) BUN/Creatinine Ratio Glucose Lactic Acid Calcium Ionized Calcium Phosphorus Magnesium Total Bilirubin Direct Bilirubin Indirect Bilirubin AST ALT Alkaline Phosphatase Troponin I Total Protein Albumin Globulin Albumin/Globulin Ratio Blood Type Antibody Screen 01/28/19 01/28/19 01/28/19 09:30 13:27 13:27 WBC RBC Hgb Hct MCV MCH MCHC RDW Plt Count MPV Neut % (Auto) Lymph % (Auto) [place] % (Auto) Eos % (Auto) Baso % (Auto) Absolute Neuts (auto) Absolute Lymphs (auto) Absolute Monos (auto) Absolute Eos (auto) Absolute Basos (auto) Absolute Nucleated RBC Nucleated RBC % Polychromasia INR (Anticoag Therapy) APTT Fibrinogen Patient Temperature ABG pH ABG pH (Temp Correct) ABG pCO2 ABG pCO2 (Temp Corrct ABG pO2 ABG pO2 (Temp Correct ABG HCO3 ABG O2 Saturation ABG Base Excess VBG pH VBG pCO2 VBG pO2 VBG HCO3 VBG O2 Saturation VBG Base Excess Respiration Rate O2 Delivery Device Ventilator Type Vent Mode FiO2 Inspiratory Time PEEP Pressure Support Pressure Control EPAP IPAP BiPAP Sodium 126 L Potassium 5.8 H Chloride 97 L Carbon Dioxide 23 Anion Gap 6 BUN 36 H Creatinine 2.16 H Est GFR ( Amer) 36.3 Est GFR (Non-Af Amer) 30.0 BUN/Creatinine Ratio 16.7 Glucose 238 H Lactic Acid 2.8 H* 1.7 Calcium 7.6 L Ionized Calcium Phosphorus Magnesium Total Bilirubin Direct Bilirubin Indirect Bilirubin AST ALT Alkaline Phosphatase Troponin I Total Protein Albumin Globulin Albumin/Globulin Ratio Blood Type Antibody Screen Assessment and Plan: MONY 2/2 to ischemic ATN, in setting of cardiac arrest Patients very high mortality with multiorgan failure on 4 pressors & won't tolerate intermittent HD She was told that to start HD, he needs a HD Access and as his INR 4.0, this is another oziel. VIKTORIA refuses a transfer out and doesn't want HD. "Keep him alive the next few days till he gets to meet his son. Don't do super- heroic measures" ex & NOK added. Correct Hyper-K with Veltassa, as SPS isn't available As long as patient is oxygenating well, on minimal FiO2, there's no indication for diuretics
[2019-01-28 14:00] LABS: BUN/Creatinine Ratio 16.7 (8-20); Calcium 7.6 mg/dL (8.6-10.3); EGFR African American 36.3 (>60); Potassium 5.8 mmol/L (3.5-5.0)
[2019-01-28] MEDS: Patiromer POWDER* 8.4 GM PAK PO SCH (18:39)
[2019-01-28] MEDS: DoBUTamine INJ* 500 MG in D5W 100 ML BAG* 60 ML IV SCH ×2 (19:26→19:49)
[2019-01-28 21:22] LABS: BUN/Creatinine Ratio 16.5 (8-20); Calcium 7.1 mg/dL (8.6-10.3); EGFR African American 33.8 (>60); EGFR Non-African American 27.9 (>60)
[2019-01-28 21:30] LABS: Potassium 5.9 mmol/L (3.5-5.0)
[2019-01-28] MEDS ORDERED: Dextrose 50% VIAL 50 ml IV ONE (23:00)
[2019-01-28] MEDS ORDERED: Insulin REGULAR(*) 1 UNITS UNIT IV ONE (23:00)
[2019-01-29] LABS: Urine Appearance Cloudy; Urine Bacteria Absent (Absent); Urine Bilirubin Negative (Negative); Urine Blood 3+ (Negative); Urine Color Amber; Urine Glucose Negative (Negative); Urine Ketones Negative (Negative); Urine Nitrite Negative (Negative); Urine Protein 1+(30 mg/dL) (Negative); Urine Red Blood Cell 3+(>10/hpf) (Absent); Urine Specific Gravity 1.009 (1.010-1.030); Urine Squamous Epithelial Cell Present (Absent); Urine Urobilinogen Negative (Negative); Urine White Blood Cell Trace(0-5/hpf) (Absent)
[2019-01-29] MEDS: Norepinephrine VIAL* 8 MG in NS 0.9% 500 ML* 492 ML IV SCH ×8 (00:29→23:16)
[2019-01-29] MEDS: Midazolam IV for DRIP* 100 MG in NS 0.9% 100 ML* 80 ML IV SCH (01:06)
[2019-01-29] MEDS: Propofol* 100 ML IV SCH ×4 (01:52→22:38)
[2019-01-29] MEDS: Chlorhexidine MOUTHWASH 0.12%* 15 ML UDC TOPICAL SCH ×6 (01:53→22:38)
[2019-01-29] MEDS: DoBUTamine INJ* 500 MG in D5W 100 ML BAG* 60 ML IV SCH ×4 (01:53→22:39)
[2019-01-29] MEDS: [UNRECOGNIZED DRUG - REMARK] IV SCH ×8 (03:00→23:16)
[2019-01-29 04:50] LABS: Hematocrit 41 % (42-52); Hemoglobin 13.3 g/dL (14.0-18.0); Mean Corpuscular HGB Conc 33 g/dL (31-36); Mean Corpuscular Hemoglobin 31 pg (27-31); Mean Corpuscular Volume 94 fL (80-94); Mean Platelet Volume 8.3 fL (7.4-10.4); Platelet Count 80 10^3/uL (150-450); Red Blood Count 4.35 10^6 /uL (4.18-5.48); Red Cell Distribution Width 20 % (10-15); White Blood Count 8.3 10^3/uL (3.5-10.8)
[2019-01-29 04:53] LABS: Albumin 2.9 g/dL (3.2-5.2); Albumin/Globulin Ratio 1.1 (1-3); BUN/Creatinine Ratio 17.3 (8-20); EGFR African American 35.6 (>60); EGFR Non-African American 29.4 (>60); Globulin 2.7 g/dL (2-4); Indirect Bilirubin 2.3 mg/dL (0.3-1.0); Phosphorus 4.9 mg/dL (2.5-5.0); Total Bilirubin 7.5 mg/dL (0.2-1.0); Total Protein 5.6 g/dL (6.4-8.9)
[2019-01-29 04:54] LABS: Potassium 5.2 mmol/L (3.5-5.0)
[2019-01-29 05:13] LABS: INR 5.09 (0.82-1.09)
[2019-01-29] MEDS: DOPamine 800 MG/250 ML IVPREM* 800 MG/250 ML ML CENTR SCH ×3 (05:45→18:50)
[2019-01-29] MEDS ORDERED: Furosemide IV* 10 MG/ML 10 ML VIAL (100 MG) IV ONE ×2 (06:00→09:32)
[2019-01-29] MEDS: Pantoprazole IV* 40 MG IV SCH ×2 (07:40→22:38)
[2019-01-29] MEDS: Aspirin EC TAB* 81 MG TAB.EC PO SCH (07:40)
[2019-01-29] MEDS: Patiromer POWDER* 8.4 GM PAK PO SCH (07:41)
--- NOTE | 2019-01-29 11:00 | PN ---
Progress Note - Progress Note Date of Service: 01/29/19 Note: Progress Note -- Critical Care 24 hour events -intubated; sedated -remains on dop, levo, epi, dobutamine; lowering doses now -CI has improved overnight; making urine now >100cc; responding to lasix -tmax 100.2, was 101 yesterday -family at bedside, Son Darnell from [place] here now, ex- at bedside also; discussed plan so far Tele: NSR Vitals: Vital Signs Temp 98.1 F 01/29/19 10:00 Pulse 85 01/29/19 10:00 Resp 30 01/29/19 10:00 BP 96/53 01/28/19 00:45 Pulse Ox 95 01/29/19 10:00 Intake & Output 01/28/19 01/29/19 01/29/19 18:59 06:59 18:59 Intake Total 4854.4 6910.4 Output Total 56 1640 2750 Balance 4798.4 5270.4 -2750 Weight 118.4 kg Intake: IV Fluids 145 63 NS (0.9%) 145 63 Medicated IV 4709.4 6817.4 CC - Dobutamine 36.4 146.4 CC - Dopamine 440 611 CC - Norepinephrine/ 1118 1879 Levophed Epinepherine 2675 3987 propofol 440 194 Oral 0 0 NG Tube Irrigate Amount 30 Output: NG Tube Drainage Amount 600 Urine 0 Boyd 56 1040 2750 Other: Estimated Void Large # Bowel Movements 0 # Voids 1 O2/Vent: AC 22/500/+8/30 Infusions: levophed , dopamine , epi , dobutamine 7.5, propofol 15 Current Medications: Albuterol (Ventolin 2.5 Mg/3 Ml Neb.Zahraa*) 2.5 mg INH Q4H PRN PRN Reason: SOB/WHEEZING Aspirin (Aspirin Ec Tab*) 81 mg PO DAILY YANELIS Last Admin: 01/29/19 07:40 Dose: 81 mg Chlorhexidine Gluconate (Peridex Mouth Wash 0.12%*) 15 ml TOPICAL Q4H YANELIS Last Admin: 01/29/19 10:53 Dose: 15 ml Dopamine HCl/Dextrose (Dopamine 800 Mg/250 Ml Ivprem*) 800 mg in 250 mls @ 9.355 mls/hr CENTR .Initial Rate YANELIS; Protocol Last Admin: 01/29/19 05:45 Dose: 9.355 mls/hr Propofol (Diprivan*) 100 mls @ 0 mls/hr IV .PER PROTOCOL YANELIS; Protocol Last Admin: 01/29/19 07:33 Dose: 13.9 mls/hr Midazolam HCl 100 mg/ Sodium (Chloride) 100 mls @ 1 mls/hr IV Q24H YANELIS; Protocol Last Admin: 01/29/19 01:06 Dose: Not Given Dobutamine HCl 500 mg/ (Dextrose) 100 mls @ 10.45 mls/hr IV Q10H YANELIS Last Admin: 01/29/19 05:13 Dose: 10.45 mls/hr Epinephrine HCl 4 mg/ Dextrose 1,000 mls @ 300 mls/hr IV Q3H [facility]; Protocol Last Admin: 01/29/19 10:45 Dose: 180 mls/hr Norepinephrine Bitartrate 8 mg (/ Sodium Chloride) 500 mls @ 150 mls/hr IV Q3H [facility]; Protocol Last Admin: 01/29/19 08:35 Dose: 93.8 mls/hr Midazolam HCl (Versed 2mg/2ml*) 2 mg IV SLOW PU Q1H PRN PRN Reason: sedation Last Admin: 01/28/19 07:10 Dose: 2 mg Pantoprazole Sodium (Protonix Iv*) 40 mg IV Q12HR [facility] Last Admin: 01/29/19 07:40 Dose: 40 mg Patiromer (Veltassa Powder*) 8.4 gm PO DAILY [facility] Last Admin: 01/29/19 07:41 Dose: 8.4 gm Physical Exam: Constitutional: intubated, sedated, no distress, no diaphoresis Head: normocephalic, atraumatic Eyes: no pallor, no icterus ENT: moist mucous membranes, improved cyanosis Neck: soft, supple, no jvd, CVS: normal rate, regular, no murmur Chest/Resp: bilateral air entry, no rhales, no wheeze, no rhonchi, no acc muscle use Abdomen/GI: soft, nontender, nondistended, BS+ Ext/Msk: cool ext+, pulses+, no edema Skin: intact, cool Neuro: sedated, pupils reactive+, corneal+, cough+ Psych: unable to assess Labs: Laboratory Results - last 24 hr 01/28/19 01/28/19 01/28/19 13:27 13:27 21:00 WBC RBC Hgb Hct MCV MCH MCHC RDW Plt Count MPV INR (Anticoag Therapy) Patient Temperature ABG pH ABG pH (Temp Correct) ABG pCO2 ABG pCO2 (Temp Corrct ABG pO2 ABG pO2 (Temp Correct ABG HCO3 ABG O2 Saturation ABG Base Excess Respiration Rate O2 Delivery Device Ventilator Type Vent Mode FiO2 Inspiratory Time PEEP Pressure Support Pressure Control EPAP IPAP BiPAP Sodium 126 L 123 L Potassium 5.8 H 5.9 H Chloride 97 L 96 L Carbon Dioxide 23 22 Anion Gap 6 5 BUN 36 H 38 H Creatinine 2.16 H 2.30 H Est GFR ( Amer) 36.3 33.8 Est GFR (Non-Af Amer) 30.0 27.9 BUN/Creatinine Ratio 16.7 16.5 Glucose 238 H 194 H Lactic Acid 1.7 Calcium 7.6 L 7.1 L Phosphorus Magnesium Total Bilirubin Direct Bilirubin Indirect Bilirubin AST ALT Alkaline Phosphatase Total Protein Albumin Globulin Albumin/Globulin Ratio Urine Color Urine Appearance Urine pH Ur Specific [place] Urine Protein Urine Ketones Urine Blood Urine Nitrate Urine Bilirubin Urine Urobilinogen Ur Leukocyte Esterase Urine WBC (Auto) Urine RBC (Auto) Ur Squamous Epith Cells Urine Bacteria Hyaline Casts Urine Glucose 01/28/19 01/29/19 01/29/19 23:00 04:15 04:15 WBC RBC Hgb Hct MCV MCH MCHC RDW Plt Count MPV INR (Anticoag Therapy) Patient Temperature Not Reportable ABG pH 7.22 L ABG pH (Temp Correct) Not Reportable ABG pCO2 39 ABG pCO2 (Temp Corrct Not Reportable ABG pO2 82 ABG pO2 (Temp Correct Not Reportable ABG HCO3 16.2 L ABG O2 Saturation 96.6 ABG Base Excess -11.1 L Respiration Rate 26 O2 Delivery Device vent Ventilator Type 500 Vent Mode scmv FiO2 25 Inspiratory Time Not Reportable PEEP 8 Pressure Support Not Reportable Pressure Control Not Reportable EPAP Not Reportable IPAP Not Reportable BiPAP Not Reportable Sodium 120 L Potassium 5.2 H Chloride 94 L Carbon Dioxide 21 L Anion Gap 5 BUN 38 H Creatinine 2.20 H Est GFR ( Amer) 35.6 Est GFR (Non-Af Amer) 29.4 BUN/Creatinine Ratio 17.3 Glucose 163 H Lactic Acid Calcium 7.0 L Phosphorus 4.9 Magnesium 2.0 Total Bilirubin 7.50 H D Direct Bilirubin 5.20 H Indirect Bilirubin 2.3 H AST 3104 H ALT 2512 H Alkaline Phosphatase 193 H Total Protein 5.6 L Albumin 2.9 L Globulin 2.7 Albumin/Globulin Ratio 1.1 Urine Color [place] Urine Appearance Cloudy Urine pH 5.0 Ur Specific [place] 1.009 L Urine Protein 1+(30 mg/dl) A Urine Ketones Negative Urine Blood 3+ A Urine Nitrate Negative Urine Bilirubin Negative Urine Urobilinogen Negative Ur Leukocyte Esterase Negative Urine WBC (Auto) Trace(0-5/hpf) Urine RBC (Auto) 3+(>10/hpf) A Ur Squamous Epith Cells Present A Urine Bacteria Absent Hyaline Casts Present A Urine Glucose Negative 01/29/19 01/29/19 04:15 04:15 WBC 8.3 RBC 4.35 Hgb 13.3 L Hct 41 L MCV 94 MCH 31 MCHC 33 RDW 20 H Plt Count 80 L D MPV 8.3 INR (Anticoag Therapy) 5.09 H* Patient Temperature ABG pH ABG pH (Temp Correct) ABG pCO2 ABG pCO2 (Temp Corrct ABG pO2 ABG pO2 (Temp Correct ABG HCO3 ABG O2 Saturation ABG Base Excess Respiration Rate O2 Delivery Device Ventilator Type Vent Mode FiO2 Inspiratory Time PEEP Pressure Support Pressure Control EPAP IPAP BiPAP Sodium Potassium Chloride Carbon Dioxide Anion Gap BUN Creatinine Est GFR ( Amer) Est GFR (Non-Af Amer) BUN/Creatinine Ratio Glucose Lactic Acid Calcium Phosphorus Magnesium Total Bilirubin Direct Bilirubin Indirect Bilirubin AST ALT Alkaline Phosphatase Total Protein Albumin Globulin Albumin/Globulin Ratio Urine Color Urine Appearance Urine pH Ur Specific [place] Urine Protein Urine Ketones Urine Blood Urine Nitrate Urine Bilirubin Urine Urobilinogen Ur Leukocyte Esterase Urine WBC (Auto) Urine RBC (Auto) Ur Squamous Epith Cells Urine Bacteria Hyaline Casts Urine Glucose Imaging: cxr 01/28 - ett above tiffany; bilateral pulmonary edema+ CXR 01/29 - ett above tiffany, swan+; pulm congestion++ Assessment: 73y M w/pmhx of 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 Today 01/27 he was brought in for IRMA and Aflutter Cardioversion. Noted to have Worsened LV systolic and RV systolic dysfunction compared to prior old echocardiograms, suspected to be from likely uncontrolled arrhythmia Aflutter now. He was given fentanyl and versed. Cardioverted in r&d lab technician. No significant events, then given amiodarone 300mg IV load post and HR dropped to 50s, he became cyanotic, hypotensive. SORT MANAGER called, started on levophed, oxygen, moved to ICU, started on dopamine for bradycardia. -Cardiogenic shock -PEA Cardiac arrest 01/27 -acute hypoxic and hypercapneic respiratory failure; on home O2 -acute pulmonary edema -Bradycardia -MONY -hyperkalemia -shock liver -coagulopathy -thrombocytopenia -Upper GI bleed, suspect gastritis -Atrial Flutter; s/p cardioversion 01/27/19 -encephalopathy Severe Biventricular Systolic dysfunction NICMP CAD, occluded RCA DM HTN IPF, Sleep Apnea Plan: Neuro- -sedated on propofol; plan to wean down slowly and assess neuro status -cooling blanket for fevers -avoid fevers, cooling blanket as needed -Delirium prec; avoid BDZ CVS- -Cardiogenic shock; likely from bradycardia post cardioversion in setting of severe LV dysfunction -CI last 2.55 now; on multiple pressors and inotropes; with improving perfusion evidenced by increased uop now and weaning pressors -cont to wean levo , epi, dopa; maintain dobutamine 7.5 for now -lasix 80mg iv x1 ovenright; repeat lasix 80mg iv x1 now -Maypearl Melly in place; last CI 2.55 today; CVP 15, PCW 15, PAs 50s -no further amio at this time -hold AC 2/2 to coaulopathy from shock liver; hg stable; no bleeding, off eliquis -hold antihypertensives/BB -further plan depending on improvement and cognitive status -Titrate Pressors to Maintain MAP>65 Resp- -intubated on AC 30% fio2 peep 8 -CXR 01/29 with stable pulm congestion; not worse -cont IV diuretics -no secretions, no wheezing -neuro status assessment today first; no plan for CPAP yet till stable hemodynamics -VAP bundle -Wean Fio2 to keep sat>92% -Bronchodilators PRN, Aspiration prec ID- afebrile. wbc 18-8, suspect reactive from shock state. CXR 01/29 with pulm edema+. monitoring off abx. GI- -NPO; NGT+ -No further blood from NGT; cont PPI IV bid for UGI bleed, suspect gastritis from stress -hg stable -LFTs downtrended now -GI prophylaxis Renal- -MONY, Cr has plateued; making urine now; responding to lasix; suspected Ischemic ATN from shock -lasix 80mg IV again today given -monitor K and Mg -cont patiromer daily -K 5s, mild metabolic acidosis -no indication for HD at this time, discussed with family -reviewed nephrology consult -strict I/O, replete to keep K>4, Mg>2 -boyd as indicated Heme- -hg stable -thrombocytopenia+ 80s -if still present tomorrow; hold ASA -off AC due to bleeding/coagulopathy -INR >4; coagulopathy from shock liver -monitor for bleeding Endo- Maintain BG<200, insulin protocol as needed Musculsk- pressure ulcer prophylaxis. Bedrest. Wounds- none Nutrition- NPO DVT prophylaxis: SCDs; none due to bleeding and coaguloapathy GI prophylaxis: ppi Central Line: Right fem 01/27; Right IJ intro/[place]pearl 01/28 Arterial Line: Right Rad 01/28 Boyd Cathetor: yes Disposition: Patient requires Critical Care/ICU for cardiogenic shock, cardiac arrest, MONY, respiratory failure and intubated Patient Clinical Status: critical, guarded Code Status: full code Total Critical Care time is 55 minutes, excluding procedures/teaching Daquan Delacruz MD Hot Blaster (Electronically Signed)
--- NOTE | 2019-01-29 11:25 | PN ---
Subjective Date of Service: 01/29/19 - CC: cardiogenic shock. Interval History: 73 yo with SOB, orthopnea, dementia who as an outpatient was found in atrial flutter of unknown duration and severe CM, EF 10%, marked drop from previous baseline. He was on medical management with Eliquis and CM medications. Cath this week showed occluded RCA (hx [place] age 55) and 50% LAD lesion. The patient underwent IRMA guided CV with the aim of restoring sinus rhythm and improving EF: EF 10%, severe RV hypokinesis, Rouleaux formation LA, no clot in THERESA. Succesful CV, loaded with IV amiodarone 300 mg 30 mins post CV BP dropped, apneic breathing. Remazicon 0.3 mg given and the patient was transferred to the ICU. The patient initially responded to pressors, narcan. Severel hours after ICU admission the patient developed marked agitation/anger ( not uncommon per the patients ex ) and pulled lines supplying pressors. Lines reestablished, intubated, then arrested including PEA. Recovered from code. Developed multi organ failure 2ary to cardiogenic shock with ATN, shock liver. Currently the patient is intubated, on pressors. Gradual pulling back of pressors and sedation today and tolerating well. His is now urinating, responding to IV lasix. Medications Active Medications: Albuterol (Ventolin 2.5 Mg/3 Ml Neb.Zahraa*) 2.5 mg INH Q4H PRN PRN Reason: SOB/WHEEZING Aspirin (Aspirin Ec Tab*) 81 mg PO DAILY YANELIS Last Admin: 01/29/19 07:40 Dose: 81 mg Chlorhexidine Gluconate (Peridex Mouth Wash 0.12%*) 15 ml TOPICAL Q4H YANELIS Last Admin: 01/29/19 10:53 Dose: 15 ml Dopamine HCl/Dextrose (Dopamine 800 Mg/250 Ml Ivprem*) 800 mg in 250 mls @ 9.355 mls/hr CENTR .Initial Rate YANELIS; Protocol Last Admin: 01/29/19 11:11 Dose: 37 mls/hr Propofol (Diprivan*) 100 mls @ 0 mls/hr IV .PER PROTOCOL YANELIS; Protocol Last Admin: 01/29/19 07:33 Dose: 13.9 mls/hr Midazolam HCl 100 mg/ Sodium (Chloride) 100 mls @ 1 mls/hr IV Q24H YANELIS; Protocol Last Admin: 01/29/19 01:06 Dose: Not Given Dobutamine HCl 500 mg/ (Dextrose) 100 mls @ 10.45 mls/hr IV Q10H YANELIS Last Admin: 01/29/19 05:13 Dose: 10.45 mls/hr Epinephrine HCl 4 mg/ Dextrose 1,000 mls @ 300 mls/hr IV Q3H YANELIS; Protocol Last Admin: 01/29/19 10:45 Dose: 180 mls/hr Norepinephrine Bitartrate 8 mg (/ Sodium Chloride) 500 mls @ 150 mls/hr IV Q3H YANELIS; Protocol Last Admin: 01/29/19 08:35 Dose: 93.8 mls/hr Midazolam HCl (Versed 2mg/2ml*) 2 mg IV SLOW PU Q1H PRN PRN Reason: sedation Last Admin: 01/28/19 07:10 Dose: 2 mg Pantoprazole Sodium (Protonix Iv*) 40 mg IV Q12HR YANELIS Last Admin: 01/29/19 07:40 Dose: 40 mg Patiromer (Veltassa Powder*) 8.4 gm PO DAILY [facility] Last Admin: 01/29/19 07:41 Dose: 8.4 gm Objective Vital Signs: Temp Pulse Resp BP Pulse Ox 98.1 F 85 30 96/53 95 01/29/19 10:00 01/29/19 10:00 01/29/19 10:00 01/28/19 00:45 01/29/19 10:00 Intake and Output Last 24 Hours 01/27/19 01/28/19 01/29/19 01/30/19 04:59 04:59 04:59 04:59 Intake Total 1606 47796.4 3632.4 Output Total 274 634 7965 Balance 1296 9694.4 -97.6 Weight 256 lb 1.6 oz 261 lb 0.437 oz Intake: IV Fluids 584 234 Magnesium 16 NS (0.9%) 18 234 IVPB 54 NS (0.9%) 54 Medicated IV 368 02515.4 3602.4 CC - Dobutamine 102.4 80.4 CC - Dopamine 47 1132 337 CC - Norepinephrine/ 321 2716 948 Levophed Calcium Chloride 110 Epinepherine 5532 2130 propofol 589 107 Oral 600 0 NG Tube Irrigate Amount 30 Output: NG Tube Drainage Amount 600 Urine 310 0 [place] 721 3130 Other: Estimated Void Large # Bowel Movements 0 # Voids 1 Vital Signs Temp 99.1 F 01/29/19 11:00 Pulse 95 01/29/19 11:00 Resp 30 01/29/19 11:00 BP 96/53 01/28/19 00:45 Pulse Ox 96 01/29/19 11:00 Oxygen Devices in Use Now: Mechanical Ventilator Appearance: tall older gentleman lying in ICU on a ventilator, sedated. Eyes: PERRLA Ears/Nose/Mouth/Throat: Clear Oropharnyx, Mucous Membranes Moist Neck: Trachea Midline, No Thyroid Enlargement, Masses Respiratory: Symmetrical Chest Expansion and Respiratory Effort, - - rhonchi c/ w tubing, lungs sound clear laterally and anteriorly. Cardiovascular: RRR - no murmurs Abdominal: - - non distended. NG tube with several hundred CC's able to be aspirated. Extremities: No Edema Skin: No Rash or Ulcers Neurological: - - sedeated. Lines/Tubes/Other Access: Clean, Dry and Intact Endotracheal Tube, Clean, Dry and Intact [place], Clean, Dry and Intact Naso-enteral Tube, Clean, Dry and Intact Peripheral IV, Clean, Dry and Intact Central Line, Clean, Dry and Intact Arterial Line Laboratory Results: 01/29/19 04:15 01/29/19 04:15 INR (Anticoag Therapy) 5.09 (0.82-1.09) H* 01/29/19 04:15 APTT 39.9 seconds (26.0-38.0) H 01/28/19 06:07 Total Bilirubin 7.50 mg/dL (0.2-1.0) H D 01/29/19 04:15 Direct Bilirubin 5.20 mg/dL (0.03-0.18) H 01/29/19 04:15 Indirect Bilirubin 2.3 mg/dL (0.3-1.0) H 01/29/19 04:15 AST 3104 U/L (13-39) H 01/29/19 04:15 ALT 2512 U/L (7-52) H 01/29/19 04:15 Alkaline Phosphatase 193 U/L (34-104) H 01/29/19 04:15 B-Natriuretic Peptide 731 pg/mL (<=100) H 01/27/19 13:00 Total Protein 5.6 g/dL (6.4-8.9) L 01/29/19 04:15 Albumin 2.9 g/dL (3.2-5.2) L 01/29/19 04:15 Globulin 2.7 g/dL (2-4) 01/29/19 04:15 Albumin/Globulin Ratio 1.1 (1-3) 01/29/19 04:15 Triglycerides < 10 mg/dL 01/27/19 13:00 Cholesterol < 27 mg/dL 01/27/19 13:00 LDL Cholesterol 16 mg/dL 01/27/19 13:00 HDL Cholesterol 9.4 mg/dL 01/27/19 13:00 TSH 3.10 mcIU/mL (0.34-5.60) 01/27/19 13:00 01/27/19 01/27/19 01/27/19 13:00 18:36 23:25 Troponin I 0.04 H* 0.05 H* 0.17 H* 01/28/19 06:07 Troponin I 0.35 H* Laboratory Results - last 24 hr 01/28/19 01/28/19 01/28/19 13:27 13:27 21:00 WBC RBC Hgb Hct MCV MCH MCHC RDW Plt Count MPV INR (Anticoag Therapy) Patient Temperature ABG pH ABG pH (Temp Correct) ABG pCO2 ABG pCO2 (Temp Corrct ABG pO2 ABG pO2 (Temp Correct ABG HCO3 ABG O2 Saturation ABG Base Excess Respiration Rate O2 Delivery Device Ventilator Type Vent Mode FiO2 Inspiratory Time PEEP Pressure Support Pressure Control EPAP IPAP BiPAP Sodium 126 L 123 L Potassium 5.8 H 5.9 H Chloride 97 L 96 L Carbon Dioxide 23 22 Anion Gap 6 5 BUN 36 H 38 H Creatinine 2.16 H 2.30 H Est GFR ( Amer) 36.3 33.8 Est GFR (Non-Af Amer) 30.0 27.9 BUN/Creatinine Ratio 16.7 16.5 Glucose 238 H 194 H Lactic Acid 1.7 Calcium 7.6 L 7.1 L Phosphorus Magnesium Total Bilirubin Direct Bilirubin Indirect Bilirubin AST ALT Alkaline Phosphatase Total Protein Albumin Globulin Albumin/Globulin Ratio Urine Color Urine Appearance Urine pH Ur Specific [place] Urine Protein Urine Ketones Urine Blood Urine Nitrate Urine Bilirubin Urine Urobilinogen Ur Leukocyte Esterase Urine WBC (Auto) Urine RBC (Auto) Ur Squamous Epith Cells Urine Bacteria Hyaline Casts Urine Glucose 01/28/19 01/29/19 01/29/19 23:00 04:15 04:15 WBC RBC Hgb Hct MCV MCH MCHC RDW Plt Count MPV INR (Anticoag Therapy) Patient Temperature Not Reportable ABG pH 7.22 L ABG pH (Temp Correct) Not Reportable ABG pCO2 39 ABG pCO2 (Temp Corrct Not Reportable ABG pO2 82 ABG pO2 (Temp Correct Not Reportable ABG HCO3 16.2 L ABG O2 Saturation 96.6 ABG Base Excess -11.1 L Respiration Rate 26 O2 Delivery Device vent Ventilator Type 500 Vent Mode scmv FiO2 25 Inspiratory Time Not Reportable PEEP 8 Pressure Support Not Reportable Pressure Control Not Reportable EPAP Not Reportable IPAP Not Reportable BiPAP Not Reportable Sodium 120 L Potassium 5.2 H Chloride 94 L Carbon Dioxide 21 L Anion Gap 5 BUN 38 H Creatinine 2.20 H Est GFR ( Amer) 35.6 Est GFR (Non-Af Amer) 29.4 BUN/Creatinine Ratio 17.3 Glucose 163 H Lactic Acid Calcium 7.0 L Phosphorus 4.9 Magnesium 2.0 Total Bilirubin 7.50 H D Direct Bilirubin 5.20 H Indirect Bilirubin 2.3 H AST 3104 H ALT 2512 H Alkaline Phosphatase 193 H Total Protein 5.6 L Albumin 2.9 L Globulin 2.7 Albumin/Globulin Ratio 1.1 Urine Color [place] Urine Appearance Cloudy Urine pH 5.0 Ur Specific [place] 1.009 L Urine Protein 1+(30 mg/dl) A Urine Ketones Negative Urine Blood 3+ A Urine Nitrate Negative Urine Bilirubin Negative Urine Urobilinogen Negative Ur Leukocyte Esterase Negative Urine WBC (Auto) Trace(0-5/hpf) Urine RBC (Auto) 3+(>10/hpf) A Ur Squamous Epith Cells Present A Urine Bacteria Absent Hyaline Casts Present A Urine Glucose Negative 01/29/19 01/29/19 04:15 04:15 WBC 8.3 RBC 4.35 Hgb 13.3 L Hct 41 L MCV 94 MCH 31 MCHC 33 RDW 20 H Plt Count 80 L D MPV 8.3 INR (Anticoag Therapy) 5.09 H* Patient Temperature ABG pH ABG pH (Temp Correct) ABG pCO2 ABG pCO2 (Temp Corrct ABG pO2 ABG pO2 (Temp Correct ABG HCO3 ABG O2 Saturation ABG Base Excess Respiration Rate O2 Delivery Device Ventilator Type Vent Mode FiO2 Inspiratory Time PEEP Pressure Support Pressure Control EPAP IPAP BiPAP Sodium Potassium Chloride Carbon Dioxide Anion Gap BUN Creatinine Est GFR ( Amer) Est GFR (Non-Af Amer) BUN/Creatinine Ratio Glucose Lactic Acid Calcium Phosphorus Magnesium Total Bilirubin Direct Bilirubin Indirect Bilirubin AST ALT Alkaline Phosphatase Total Protein Albumin Globulin Albumin/Globulin Ratio Urine Color Urine Appearance Urine pH Ur Specific [place] Urine Protein Urine Ketones Urine Blood Urine Nitrate Urine Bilirubin Urine Urobilinogen Ur Leukocyte Esterase Urine WBC (Auto) Urine RBC (Auto) Ur Squamous Epith Cells Urine Bacteria Hyaline Casts Urine Glucose Diagnostic Imaging: Transesophageal Echocardiogram Patient: Markus Miller *Reading Physician: Tiffany Morales MD Indications: Atrial Flutter. History: Coronary artery disease. PMH: Cardiomyopathy. Myocardial infarction. Risk factors: Hypertension. Diabetes mellitus. Dyslipidemia. Conclusions Summary: - Left ventricle: The cavity size is dilated. Wall thickness is mildly increased. Systolic function is severely reduced. The estimated ejection fraction is <10%. - Right ventricle: Systolic function is moderately to severely reduced. - Left atrium: There is no evidence of a thrombus in the atrial cavity or appendage. There is spontaneous echo contrast ("smoke") in the cavity and the appendage. - Atrial septum: A PFO is not demonstrated by color Doppler or agitated saline contrast. - Mitral valve: There is trace to mild regurgitation. - Aortic valve: Mild focal calcification involving the left coronary and noncoronary cusp. -Tricuspid valve: Mild tricuspid regurgitation. CXR: pulmonary edema. EKG Data: Pre CV: a flutter 2:1 block, V rate 108 bpm Monitor: junctional rhythm, inverted P waves and short OK interval alternating with sinus and other atrial pacer sites, occ. PVC's. Assessment/Plan 73 yo with A flutter unknown duration started on Eliquis 2 weeks ago. Severe CM , ischemic and non ischemic, new drop thought to be due to rhythm and rate. Underwent IRMA guided CV complicated by hypotension, apnea and cardiogenic shock with multisystem organ failure. Based on urination returning and improvement in LFT's, improvement in CO from swan and BP stability on lower amounts of pressors appears to be improving. Cardiogenic shock: Occured post CV with sedation and ICU managing with pressors, swan. Systems improving. -Agree with avoiding BB/rate lowering agents and appears to need HR to maintain CO. -No additional suggestions and appreciate ICU management. Paroxysmal atrial flutter: -S/p ablation. -Amiodarone on hold, but likely still in his system. -Eliquis held (INR up in setting of shock liver). Platelets now dropped to 80 (new) At high risk for CVA post CV, consider resumption of Eliquis/ anticoagulation when INR improves. CM: [place] to be combination of CAD but predominantly from flutter and RVR. As CO improved, check limited echo in AM for EF. Fevers noted, cooling blanket noted. Hypnatremia noted, anticipating this will improve with diuresis. Overall the patient's status is very guarded. Await further lowering of propofol to evaluate mentation/neurological status post shock.
[2019-01-29] MEDS ORDERED: Midazolam* 1 MG/ML 2 ML VIAL (2 MG) IV SLOW PU ONE (15:19)
[2019-01-29] MEDS: Midazolam* 1 MG/ML 2 ML VIAL (2 MG) IV SLOW PU PRN ×2 (15:25→22:57)
[2019-01-29 15:50] LABS: BUN/Creatinine Ratio 18.4 (8-20); Calcium 7.4 mg/dL (8.6-10.3); EGFR African American 38.4 (>60); EGFR Non-African American 31.7 (>60); Magnesium 1.6 mg/dL (1.9-2.7); Potassium 4.8 mmol/L (3.5-5.0)
[2019-01-29] MEDS ORDERED: Calcium CHLORIDE 1 GM in D5W* (approx = 2.92 gm of Calcium Gluc) IV ONE (17:00)
[2019-01-29] MEDS ORDERED: Furosemide IV* 10 MG/ML VIAL (40 MG) IV ONE (17:00)
[2019-01-29] MEDS ORDERED: Magnesium Sulfate 2 GM IV* 2 GM/50 ML BAG IVPB ONE (17:07)
--- NOTE | 2019-01-29 17:11 | PN ---
Progress Note - Progress Note Date of Service: 01/29/19 Note: Critical Care Patient was weaning down on inotropic and pressor support today; continued to diurese with lasix. off cooling blanket. Propofol was turned down to slowly assess neuro status. Slow wean down, no response, then eventual turn off of propofol done. Pupils reactive, corneal+. He was eventually becoming more tachypneic, increased acc muscle use, no waking though, some spontaneous movements by family of extremities. At some point noted some ventricular arrythmias and NSVT, along with drop in BP and drop in sats low high 80s. Fio2 increased on vent to 100%. Propofol restarted to 15 mcg and versed 2mg given IV stat. Pressors were increased back to previous levels, and BP improved to 110s again. Labs sent and reviewed. MgSulfate 2gm IV x1 [place] Chloride 1gm IVPB. Wean Pressors/inotropes again, wean levophed first. no plan for sedation vacation today, reassess tomorrow but if on 2+ pressors will await till thursday. Plan for CT brain tonight to assess for structural injury EEG tomorrow or thursday depending on status and if he doesnt wake with less sedation. maintain euthermia. Discussed current progress and plan with family at bedside. Ex- and Son both agreed to make patient DNR in event of cardiac arrest, document signed as MOLST. Ex- is HCP; both HCP and Son signed. Total Critical Care time 30 min, not including procedures Total of 85 min of CC today. Daquan Delacruz MD Weatherization Administrator
[2019-01-30] MEDS: Midazolam IV for DRIP* 100 MG in NS 0.9% 100 ML* 80 ML IV SCH ×2 (00:02→23:34)
[2019-01-30] MEDS: DOPamine 800 MG/250 ML IVPREM* 800 MG/250 ML ML CENTR SCH ×5 (00:38→23:53)
[2019-01-30 00:56] LABS: BUN/Creatinine Ratio 18.4 (8-20); Blood Urea Nitrogen 37 mg/dL (6-24); CO2 Carbon Dioxide 22 mmol/L (22-32); Calcium 7.6 mg/dL (8.6-10.3); Chloride 89 mmol/L (101-111); EGFR African American 39.5 (>60); EGFR Non-African American 32.6 (>60); Glucose 202 mg/dL (70-100); Magnesium 1.6 mg/dL (1.9-2.7); Phosphorus 4.1 mg/dL (2.5-5.0)
[2019-01-30 01:10] LABS: Anion Gap 7 mmol/L (2-11); Sodium 118 mmol/L (135-145)
[2019-01-30] MEDS: Norepinephrine VIAL* 8 MG in NS 0.9% 500 ML* 492 ML IV SCH ×7 (01:45→21:33)
[2019-01-30] MEDS: DoBUTamine INJ* 500 MG in D5W 100 ML BAG* 60 ML IV SCH ×4 (01:45→22:23)
[2019-01-30] MEDS: [UNRECOGNIZED DRUG - REMARK] IV SCH ×4 (01:45→10:31)
[2019-01-30] MEDS: Midazolam* 1 MG/ML 2 ML VIAL (2 MG) IV SLOW PU PRN (01:48)
[2019-01-30] MEDS ORDERED: Magnesium Sulfate 3 GM IV IVPB ONE ×2 (02:00)
[2019-01-30] MEDS: Chlorhexidine MOUTHWASH 0.12%* 15 ML UDC TOPICAL SCH ×6 (02:15→21:17)
[2019-01-30 05:17] LABS: Hematocrit 42 % (42-52); Mean Corpuscular HGB Conc 33 g/dL (31-36); Mean Corpuscular Hemoglobin 30 pg (27-31); Mean Corpuscular Volume 91 fL (80-94); Mean Platelet Volume 7.8 fL (7.4-10.4); Platelet Count 87 10^3/uL (150-450); Red Blood Count 4.64 10^6 /uL (4.18-5.48); Red Cell Distribution Width 20 % (10-15); White Blood Count 7.2 10^3/uL (3.5-10.8)
[2019-01-30 05:22] LABS: INR 2.91 (0.82-1.09)
[2019-01-30 05:37] LABS: Albumin 2.6 g/dL (3.2-5.2); Albumin/Globulin Ratio 0.9 (1-3); BUN/Creatinine Ratio 18.7 (8-20); Calcium 7.7 mg/dL (8.6-10.3); EGFR African American 42.9 (>60); EGFR Non-African American 35.5 (>60); Globulin 2.8 g/dL (2-4); Phosphorus 3.8 mg/dL (2.5-5.0); Potassium 4.3 mmol/L (3.5-5.0); Total Protein 5.4 g/dL (6.4-8.9)
[2019-01-30 05:38] LABS: Indirect Bilirubin 4.5 mg/dL (0.3-1.0); Magnesium 2.1 mg/dL (1.9-2.7); Total Bilirubin 12.4 mg/dL (0.2-1.0)
[2019-01-30] MEDS ORDERED: Furosemide IV* 10 MG/ML VIAL (40 MG) IV ONE ×2 (06:30→15:00)
[2019-01-30] MEDS: Pantoprazole IV* 40 MG IV SCH ×2 (07:44→21:29)
[2019-01-30] MEDS: Aspirin EC TAB* 81 MG TAB.EC PO SCH (07:45)
[2019-01-30] MEDS: Patiromer POWDER* 8.4 GM PAK PO SCH (10:09)
[2019-01-30] MEDS: Propofol* 100 ML IV SCH ×2 (11:33→20:16)
--- NOTE | 2019-01-30 11:46 | PN ---
Progress Note - Progress Note Date of Service: 01/30/19 Note: Progress Note -- Critical Care 24 hour events -intubated; sedated -remains on dop, levo, epi, dobutamine -noted yesterday with lower sedation, tachypneic and then ended up on higher level pressors again -tmax 100 -CT brain overnight wt edema posteriorly -making urine; edema+++ -air leak from ETT noted -noted Ventricular ectopy and some NSVT past 24 hours -family at bedside, Son Darnell and Ex- -discussed current plan wtih Dr Lee and family at bedside, [facility] discussed; made DNR yesterday Tele: NSR Vitals: Vital Signs Temp 100.0 F 01/30/19 06:06 Pulse 100 01/30/19 10:01 Resp 30 01/30/19 07:41 BP 96/53 01/28/19 00:45 Pulse Ox 99 01/30/19 10:01 Intake & Output 01/29/19 01/30/19 01/30/19 18:59 06:59 18:59 Intake Total 2584.3 6829.5 Output Total 7250 4660 3500 Balance -4665.7 2169.5 -3500 Weight 114.6 kg Intake: IV Fluids 238 NS (0.9%) 238 IVPB 63 117 Magnesium 117 NS (0.9%) 63 Medicated IV 2521.3 6474.5 CC - Dobutamine 79 161 CC - Dopamine 303 638 CC - Norepinephrine/ 631 1139 Levophed Calcium Chloride 60 Epinepherine 1431 4300 propofol 77.3 176.5 Oral 0 Output: Boyd 7250 4660 3500 O2/Vent: AC 30/500/+8/40% Infusions: levophed , dopamine , epi , dobutamine 7.5, propofol 15 Current Medications: Albuterol (Ventolin 2.5 Mg/3 Ml Neb.Zahraa*) 2.5 mg INH Q4H PRN PRN Reason: SOB/WHEEZING Aspirin (Aspirin Ec Tab*) 81 mg PO DAILY [facility] Last Admin: 01/30/19 07:45 Dose: 81 mg Chlorhexidine Gluconate (Peridex Mouth Wash 0.12%*) 15 ml TOPICAL Q4H YANELIS Last Admin: 01/30/19 05:06 Dose: 15 ml Dopamine HCl/Dextrose (Dopamine 800 Mg/250 Ml Ivprem*) 800 mg in 250 mls @ 9.355 mls/hr CENTR .Initial Rate YANELIS; Protocol Last Admin: 01/30/19 10:55 Dose: 43.5 mls/hr Midazolam HCl 100 mg/ Sodium (Chloride) 100 mls @ 1 mls/hr IV Q24H YANELIS; Protocol Last Admin: 01/30/19 00:02 Dose: Not Given Dobutamine HCl 500 mg/ (Dextrose) 100 mls @ 10.45 mls/hr IV Q10H YANELIS Last Admin: 01/30/19 10:32 Dose: 10.45 mls/hr Epinephrine HCl 4 mg/ Dextrose 1,000 mls @ 300 mls/hr IV Q3H YANELIS; Protocol Last Admin: 01/30/19 10:31 Dose: 300 mls/hr Norepinephrine Bitartrate 8 mg (/ Sodium Chloride) 500 mls @ 150 mls/hr IV Q3H YANELIS; Protocol Last Admin: 01/30/19 10:54 Dose: 86.3 mls/hr Propofol (Diprivan*) 100 mls @ 0 mls/hr IV .PER PROTOCOL YANELIS; Protocol Last Admin: 01/29/19 22:38 Dose: 13.9 mls/hr Midazolam HCl (Versed 2mg/2ml*) 2 mg IV SLOW PU Q1H PRN PRN Reason: sedation Last Admin: 01/30/19 01:48 Dose: 2 mg Pantoprazole Sodium (Protonix Iv*) 40 mg IV Q12HR [facility] Last Admin: 01/30/19 07:44 Dose: 40 mg Patiromer (Veltassa Powder*) 8.4 gm PO DAILY [facility] Last Admin: 01/30/19 10:09 Dose: Not Given Physical Exam: Constitutional: intubated, sedated, no distress, no diaphoresis Head: normocephalic, atraumatic Eyes: no pallor, ++ icterus ENT: moist mucous membranes, improved cyanosis Neck: soft, supple, no jvd, CVS: normal rate, regular, no murmur Chest/Resp: bilateral air entry, no rhales, no wheeze, no rhonchi, no acc muscle use Abdomen/GI: soft, nontender, nondistended, BS+ Ext/Msk: cool ext+, pulses+, ++ edema Skin: intact, cool Neuro: sedated, pupils reactive+, corneal+, cough+ Psych: unable to assess Labs: Laboratory Results - last 24 hr 01/29/19 01/29/19 01/29/19 15:15 15:15 18:17 WBC RBC Hgb Hct MCV MCH MCHC RDW Plt Count MPV INR (Anticoag Therapy) Patient Temperature Not Reportable ABG pH 7.23 L ABG pH (Temp Correct) Not Reportable ABG pCO2 37 ABG pCO2 (Temp Corrct Not Reportable ABG pO2 156 H ABG pO2 (Temp Correct Not Reportable ABG HCO3 16.1 L ABG O2 Saturation 99.0 H ABG Base Excess -11.3 L Respiration Rate 30 O2 Delivery Device Ventilator Type Not Reportable Vent Mode Not Reportable FiO2 80 Inspiratory Time Not Reportable PEEP Not Reportable Pressure Support Not Reportable Pressure Control Not Reportable EPAP Not Reportable IPAP Not Reportable BiPAP Not Reportable Sodium 121 L Potassium 4.8 Chloride 92 L Carbon Dioxide 21 L Anion Gap 8 BUN 38 H Creatinine 2.06 H Est GFR ( Amer) 38.4 Est GFR (Non-Af Amer) 31.7 BUN/Creatinine Ratio 18.4 Glucose 182 H Calcium 7.4 L Ionized Calcium 0.98 L Phosphorus Magnesium 1.6 L Total Bilirubin Direct Bilirubin Indirect Bilirubin AST ALT Alkaline Phosphatase Total Protein Albumin Globulin Albumin/Globulin Ratio 01/30/19 01/30/19 01/30/19 00:30 00:31 01:17 WBC RBC Hgb Hct MCV MCH MCHC RDW Plt Count MPV INR (Anticoag Therapy) Patient Temperature Not Reportable ABG pH 7.25 L ABG pH (Temp Correct) Not Reportable ABG pCO2 43 ABG pCO2 (Temp Corrct Not Reportable ABG pO2 108 H ABG pO2 (Temp Correct Not Reportable ABG HCO3 18.6 L ABG O2 Saturation 98.7 H ABG Base Excess -8.1 L Respiration Rate 30 O2 Delivery Device mechb vent Ventilator Type Not Reportable Vent Mode Not Reportable FiO2 50 Inspiratory Time Not Reportable PEEP Not Reportable Pressure Support Not Reportable Pressure Control Not Reportable EPAP Not Reportable IPAP Not Reportable BiPAP Not Reportable Sodium 118 L* Potassium TNP 4.3 Chloride 89 L Carbon Dioxide 22 Anion Gap 7 BUN 37 H Creatinine 2.01 H Est GFR ( Amer) 39.5 Est GFR (Non-Af Amer) 32.6 BUN/Creatinine Ratio 18.4 Glucose 202 H Calcium 7.6 L Ionized Calcium Phosphorus 4.1 Magnesium 1.6 L Total Bilirubin Direct Bilirubin Indirect Bilirubin AST ALT Alkaline Phosphatase Total Protein Albumin Globulin Albumin/Globulin Ratio 01/30/19 01/30/19 01/30/19 05:05 05:05 05:05 WBC 7.2 RBC 4.64 Hgb 14.0 Hct 42 MCV 91 MCH 30 MCHC 33 RDW 20 H Plt Count 87 L MPV 7.8 INR (Anticoag Therapy) 2.91 H Patient Temperature ABG pH ABG pH (Temp Correct) ABG pCO2 ABG pCO2 (Temp Corrct ABG pO2 ABG pO2 (Temp Correct ABG HCO3 ABG O2 Saturation ABG Base Excess Respiration Rate O2 Delivery Device Ventilator Type Vent Mode FiO2 Inspiratory Time PEEP Pressure Support Pressure Control EPAP IPAP BiPAP Sodium 118 L* Potassium 4.3 Chloride 89 L Carbon Dioxide 23 Anion Gap 6 BUN 35 H Creatinine 1.87 H Est GFR ( Amer) 42.9 Est GFR (Non-Af Amer) 35.5 BUN/Creatinine Ratio 18.7 Glucose 196 H Calcium 7.7 L Ionized Calcium Phosphorus 3.8 Magnesium 2.1 Total Bilirubin 12.40 H* D Direct Bilirubin 7.90 H Indirect Bilirubin 4.5 H AST 933 H ALT 1677 H Alkaline Phosphatase 188 H Total Protein 5.4 L Albumin 2.6 L Globulin 2.8 Albumin/Globulin Ratio 0.9 L 01/30/19 05:13 WBC RBC Hgb Hct MCV MCH MCHC RDW Plt Count MPV INR (Anticoag Therapy) Patient Temperature Not Reportable ABG pH 7.30 L ABG pH (Temp Correct) Not Reportable ABG pCO2 41 ABG pCO2 (Temp Corrct Not Reportable ABG pO2 139 H ABG pO2 (Temp Correct Not Reportable ABG HCO3 20.3 ABG O2 Saturation 99.6 H ABG Base Excess -5.9 L Respiration Rate 30 O2 Delivery Device vent Ventilator Type 500 Vent Mode Scmv FiO2 50 Inspiratory Time Not Reportable PEEP 8 Pressure Support Not Reportable Pressure Control Not Reportable EPAP Not Reportable IPAP Not Reportable BiPAP Not Reportable Sodium Potassium Chloride Carbon Dioxide Anion Gap BUN Creatinine Est GFR ( Amer) Est GFR (Non-Af Amer) BUN/Creatinine Ratio Glucose Calcium Ionized Calcium Phosphorus Magnesium Total Bilirubin Direct Bilirubin Indirect Bilirubin AST ALT Alkaline Phosphatase Total Protein Albumin Globulin Albumin/Globulin Ratio Imaging: cxr 01/28 - ett above tiffany; bilateral pulmonary edema+ CXR 01/29 - ett above tiffany, swan+; pulm congestion++ cxr 01/30 - ett very high, pulm congestion+ CT brain 01/29 - posterior cortical loss and edema++ Assessment: 73y M w/pmhx of 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 Today 01/27 he was brought in for IRMA and Aflutter Cardioversion. Noted to have Worsened LV systolic and RV systolic dysfunction compared to prior old echocardiograms, suspected to be from likely uncontrolled arrhythmia Aflutter now. He was given fentanyl and versed. Cardioverted in laboratory engineer. No significant events, then given amiodarone 300mg IV load post and HR dropped to 50s, he became cyanotic, hypotensive. SEWER SEPARATION DESIGNER called, started on levophed, oxygen, moved to ICU, started on dopamine for bradycardia. -Cardiogenic shock -PEA Cardiac arrest 01/27 -acute hypoxic and hypercapneic respiratory failure; on home O2 -acute pulmonary edema -Bradycardia -MONY -hyperkalemia -shock liver -coagulopathy -thrombocytopenia -Upper GI bleed, suspect gastritis -Atrial Flutter; s/p cardioversion 01/27/19 -encephalopathy Severe Biventricular Systolic dysfunction NICMP CAD, occluded RCA DM HTN IPF, Sleep Apnea Plan: Neuro- -sedated on propofol, no plan for sedation vacation yet till hemodynamics stable -CT brain 01/29 with posterior loss of cortical differentiation and edema+; suspec this to be some hypoxic injury -cooling blanket for fevers as needed -Delirium prec; avoid BDZ CVS- -Cardiogenic shock; likely from bradycardia post cardioversion in setting of severe LV dysfunction -CI last 2.0; on high dose levo/epi//dopa; asked pharmacy to concentrate epi givne very large volume infusing -very poor cardiac status, though evidence of organ perfusion/function improving , he is albile and even some resp effort decopmensates him -will have to optimize hemodynamics and once less pressor/inotrop requirements, then plan for neuro eval and EEG and sedation weaning -cont to wean levo , epi, dopa; maintain dobutamine 7.5 -lasix 40mg iv x1 overnight; repeat lasix 40mg iv x1 now, check bmp/mg first -likely hyponatremia from all the free water; may need tolvaptan (which can be recieved only tomorrow, asked pharmacy) -[place] Melly in place; last CI 2.0 today, PCW 13, PAs 50s -no further amio at this time -hold AC 2/2 to coaulopathy from shock liver; can likely restart tomorrow once INR lower, would prefer IV heparin -hg stable -hold antihypertensives/BB -Titrate Pressors to Maintain MAP>65 Resp- -intubated on AC 30% fio2 peep 8 -CXR 01/30 with high ETT and pulm congestion -Bronchoscopy performed for BAL and tube readjustment due to possible reintubation or tube exhcnage -tube readjusted now; no further air leak noted -cont IV diuretics -no secretions, no wheezing -no plan for CPAP yet -VAP bundle -Wean Fio2 to keep sat>92% -Bronchodilators PRN, Aspiration prec ID- afebrile tmax 100. wbc 18-8-7, suspect reactive from shock state. CXR 01/30 with pulm congestion+. monitoring off abx. -send sputum culture from bronch -start cefepime 2gm iv q24h (day#1) for renal function; to cover for aspiration -noted MRSA screen negative GI- -NPO; NGT+; no feeds given high pressor requirements -No further blood from NGT; cont PPI IV bid for UGI bleed, suspect gastritis from stress -hg stable -LFTs downtrended; elevated Tbili, INR improved; icterus+ -GI prophylaxis Renal- -MONY, Cr decreasing; making large amounts of urine tony -lasix 40mg ivx1, repeat lasix 40mg iv x1 now -hyponatremia from all the free water in IVFs; likely diuresing all the free water -concentrate epi which is in d5w -lasix will help -check BMP later and may need tolvaptan tomorrow -K 4s, mild metabolic acidosis -no indication for HD at this time, discussed with family -reviewed nephrology consult -strict I/O, replete to keep K>4, Mg>2 -boyd as indicated Heme- -hg stable -thrombocytopenia+ 80s -off AC due to bleeding/coagulopathy from shock liver; INR improving now -tomorrow can start IV heparin, no PO yet given hemodynamics Endo- Maintain BG<200, insulin protocol as needed Musculsk- pressure ulcer prophylaxis. Bedrest. Wounds- none Nutrition- NPO DVT prophylaxis: SCDs; none due to bleeding and coaguloapathy GI prophylaxis: ppi Central Line: Right fem 01/27; Right IJ intro/[place] 01/28 Arterial Line: Right Rad 01/28 Boyd Cathetor: yes Disposition: Patient requires Critical Care/ICU for cardiogenic shock, cardiac arrest, MONY, respiratory failure and intubated GOC identified with family, Dr Lee also here. Plan for reassessment of neuro status once hemodynamics stable. they are aware of his overall grim prognosis and likelihood he wouldnt survive. they also would not like to prolong or put him through prolonged intubation, they are aware his QOL is going to impacted, there is suspicion of brain injury from cardiac arrest on imaging. Will reassess after next 48 hours. Patient Clinical Status: critical, guarded Code Status: full code Total Critical Care time is 60 minutes, excluding procedures/teaching Daquan Delacruz MD Ply[employer] Stock Grader (Electronically Signed)
[2019-01-30] MEDS ORDERED: [UNRECOGNIZED DRUG - REMARK] IV SCH (12:00)
[2019-01-30] MEDS ORDERED: fentaNYL* 50 MCG/ML 2 ML VIAL (100 MCG VIAL) ONE (12:05)
[2019-01-30] MEDS ORDERED: fentaNYL* 50 MCG/ML 2 ML VIAL (100 MCG VIAL) IV SLOW PU ONE (12:18)
--- NOTE | 2019-01-30 12:21 | OP ---
Operative Report - Blank - Operative Report Date of Operation: 01/30/19 Note: Bronchoscopy with BAL and ETT readjustment - Procedure Note Indication: acute hypoxic respiratory failure, fevers, high endotracheal tube for adjustment Diagnosis: cardiogenic shock, acute hypoxic respiratory failure, pulmonary edema , MONY, encephalopathy Performed by: Daquan Delacruz MD Consent: Informed ; placed in bedside chart Risk/Benefits of procedure explained. Farber Protocol: Time-out was performed and the correct patient and site were verified Prior labs/imaging reviewed before procedure. Patient oxygenated with 100% Fi02, placed on VC ventilation Patient alreayd on propofol infusion ; given fentanyl 25mcg IV push x1 for analgesia Scope inserted via ETT tube through adapter. FINDINGS -ETT clear, located very high up; ETT was pushed forward to 28cm, and was not 4cm above tiffany in good position. -Excessive secretions noted in both left and right bronchi, yellow in color; bilateral airways appeared patent otherwise. -No endobronchial lesions noted in proximal segments. -BAL performed from MURIEL/LLL/RLL/RML/RUL segments. Specimens: collected and sent for culture/analysis EBL: none significant Complications: No immediate complications during the procedure Post Procedure CXR: Pending Daquan Delacruz MD Gambling Counsellor (Electronically Signed)
[2019-01-30] MEDS ORDERED: [UNRECOGNIZED DRUG - REMARK] IV SCH (13:00)
[2019-01-30] MEDS ORDERED: Cefepime 2 GM in Dextrose(*) 2 GM/50 ML BAG IV SCH (13:00)
[2019-01-30] MEDS: Cefepime 2 GM in Dextrose(*) 2 GM/50 ML BAG IV SCH (13:41)
[2019-01-30 14:12] LABS: BUN/Creatinine Ratio 18.3 (8-20); Calcium 7.5 mg/dL (8.6-10.3); EGFR African American 44.9 (>60); EGFR Non-African American 37.1 (>60); Potassium 4.3 mmol/L (3.5-5.0)
[2019-01-30 14:19] LABS: Magnesium 1.7 mg/dL (1.9-2.7)
--- NOTE | 2019-01-30 14:24 | PN ---
Subjective Date of Service: 01/30/19 - CC: cardiogenic shock Interval History: 73 yo with SOB, orthopnea, dementia who as an outpatient was found in atrial flutter of unknown duration and severe CM, EF 10%, marked drop from previous baseline. He was on medical management with Eliquis and CM medications. Cath this week showed occluded RCA (hx PR age 55) and 50% LAD lesion. The patient underwent IRMA guided CV with the aim of restoring sinus rhythm and improving EF: EF 10%, severe RV hypokinesis, Rouleaux formation LA, no clot in THERESA. Succesful CV, loaded with IV amiodarone 300 mg 30 mins post CV BP dropped, apneic breathing. Remazicon 0.3 mg given and the patient was transferred to the ICU. The patient initially responded to pressors, narcan. Severel hours after ICU admission the patient developed marked agitation/anger ( not uncommon per the patients ex ) and pulled lines supplying pressors. Lines reestablished, intubated, then arrested including PEA. Recovered from code. Developed multi organ failure 2ary to cardiogenic shock with ATN, shock liver. Currently the patient is intubated, on pressors, unable to wean. Propofol off for a bit yesterday, pt did not wake up and increased V ectopy. Low Na+ worsening Bili increasing and transaminases decreasing. +UO I talked with the patient's son and daughter in law this morning. Son Darnell expressed hope that the patient would awaken enough to help determine future options. In the evening I talked with the patients former ANTONIETA Franklin for the patient. She expressed that she can't see that Mr Miller will recover from this. The patient expressed to her that he did not want to be kept alive on a ventilator. She does not want to prolong inevitable . Medications Active Medications: Albuterol (Ventolin 2.5 Mg/3 Ml Neb.Zahraa*) 2.5 mg INH Q4H PRN PRN Reason: SOB/WHEEZING Aspirin (Aspirin Ec Tab*) 81 mg PO DAILY [facility] Last Admin: 01/30/19 07:45 Dose: 81 mg Chlorhexidine Gluconate (Peridex Mouth Wash 0.12%*) 15 ml TOPICAL Q4H YANELIS Last Admin: 01/30/19 13:18 Dose: 15 ml Furosemide (Lasix Iv*) 40 mg IV ONCE ONE Stop: 01/30/19 15:01 Dopamine HCl/Dextrose (Dopamine 800 Mg/250 Ml Ivprem*) 800 mg in 250 mls @ 9.355 mls/hr CENTR .Initial Rate YANELIS; Protocol Last Admin: 01/30/19 10:55 Dose: 43.5 mls/hr Midazolam HCl 100 mg/ Sodium (Chloride) 100 mls @ 1 mls/hr IV Q24H YANELIS; Protocol Last Admin: 01/30/19 00:02 Dose: Not Given Dobutamine HCl 500 mg/ (Dextrose) 100 mls @ 10.45 mls/hr IV Q10H YANELIS Last Admin: 01/30/19 10:32 Dose: 10.45 mls/hr Norepinephrine Bitartrate 8 mg (/ Sodium Chloride) 500 mls @ 150 mls/hr IV Q3H YANELIS; Protocol Last Admin: 01/30/19 10:54 Dose: 86.3 mls/hr Propofol (Diprivan*) 100 mls @ 0 mls/hr IV .PER PROTOCOL YANELIS; Protocol Last Admin: 01/30/19 11:33 Dose: 10.4 mls/hr Epinephrine HCl 4 mg/ Dextrose 250 mls @ 0 mls/hr IV Q3H YANELIS; Protocol Cefepime HCl (Maxipime 2 Gm In Dextrose Duplex (*)) 2 gm in 50 mls @ 100 mls/ hr IV Q24HR YANELIS Last Admin: 01/30/19 13:41 Dose: 100 mls/hr Midazolam HCl (Versed 2mg/2ml*) 2 mg IV SLOW PU Q1H PRN PRN Reason: sedation Last Admin: 01/30/19 01:48 Dose: 2 mg Pantoprazole Sodium (Protonix Iv*) 40 mg IV Q12HR YANELIS Last Admin: 01/30/19 07:44 Dose: 40 mg Objective Vital Signs: Temp Pulse Resp BP Pulse Ox 100.0 F 98 31 96/53 98 01/30/19 06:06 01/30/19 13:00 01/30/19 13:00 01/28/19 00:45 01/30/19 13:00 Vital Signs Temp 100.7 F 01/30/19 16:00 Pulse 101 01/30/19 19:00 Resp 30 01/30/19 18:00 BP 96/53 01/28/19 00:45 Pulse Ox 99 01/30/19 19:00 Intake & Output 01/30/19 01/30/19 01/31/19 04:59 16:59 04:59 Intake Total 4016.5 7177 Output Total 4935 6425 1375 Balance -918.5 752 -1375 Weight 252 lb 10.396 oz Intake: IV Fluids 80 158 NS (0.9%) 80 158 IVPB 327 Magnesium 117 NS (0.9%) 210 Medicated IV 3936.5 6692 CC - Dobutamine 101 143 CC - Dopamine 387 602 CC - Norepinephrine/ 703 1187 Levophed Calcium Chloride 60 Epinepherine 2592 4591 propofol 93.5 169 Output: [place] 4935 6425 1375 Oxygen Devices in Use Now: Mechanical Ventilator Appearance: tall older gentleman lying in ICU on a ventilator, sedated. Eyes: PERRLA Ears/Nose/Mouth/Throat: Clear Oropharnyx, Mucous Membranes Moist, - - Intubated Neck: Trachea Midline, No Thyroid Enlargement, Masses Respiratory: Symmetrical Chest Expansion and Respiratory Effort, - - rhonchi, coarse BS. Cardiovascular: RRR - no murmurs Abdominal: - - non distended. NG tube with several hundred CC's able to be aspirated. Extremities: No Edema Skin: No Rash or Ulcers Neurological: - - sedeated. Lines/Tubes/Other Access: Clean, Dry and Intact Endotracheal Tube, Clean, Dry and Intact [place], Clean, Dry and Intact Naso-enteral Tube, Clean, Dry and Intact Peripheral IV, Clean, Dry and Intact Central Line, Clean, Dry and Intact Arterial Line Laboratory Results: 01/30/19 05:05 01/30/19 13:25 INR (Anticoag Therapy) 2.91 (0.82-1.09) H 01/30/19 05:05 APTT 39.9 seconds (26.0-38.0) H 01/28/19 06:07 Total Bilirubin 12.40 mg/dL (0.2-1.0) H* D 01/30/19 05:05 Direct Bilirubin 7.90 mg/dL (0.03-0.18) H 01/30/19 05:05 Indirect Bilirubin 4.5 mg/dL (0.3-1.0) H 01/30/19 05:05 AST 933 U/L (13-39) H 01/30/19 05:05 ALT 1677 U/L (7-52) H 01/30/19 05:05 Alkaline Phosphatase 188 U/L (34-104) H 01/30/19 05:05 B-Natriuretic Peptide 731 pg/mL (<=100) H 01/27/19 13:00 Total Protein 5.4 g/dL (6.4-8.9) L 01/30/19 05:05 Albumin 2.6 g/dL (3.2-5.2) L 01/30/19 05:05 Globulin 2.8 g/dL (2-4) 01/30/19 05:05 Albumin/Globulin Ratio 0.9 (1-3) L 01/30/19 05:05 Triglycerides < 10 mg/dL 01/27/19 13:00 Cholesterol < 27 mg/dL 01/27/19 13:00 LDL Cholesterol 16 mg/dL 01/27/19 13:00 HDL Cholesterol 9.4 mg/dL 01/27/19 13:00 TSH 3.10 mcIU/mL (0.34-5.60) 01/27/19 13:00 01/27/19 01/27/19 01/27/19 13:00 18:36 23:25 Troponin I 0.04 H* 0.05 H* 0.17 H* 01/28/19 06:07 Troponin I 0.35 H* WBC 7.2 10^3/uL (3.5-10.8) 01/30/19 05:05 RBC 4.64 10^6 /uL (4.18-5.48) 01/30/19 05:05 Hgb 14.0 g/dL (14.0-18.0) 01/30/19 05:05 Hct 42 % (42-52) 01/30/19 05:05 MCV 91 fL (80-94) 01/30/19 05:05 MCH 30 pg (27-31) 01/30/19 05:05 MCHC 33 g/dL (31-36) 01/30/19 05:05 RDW 20 % (10-15) H 01/30/19 05:05 Plt Count 87 10^3/uL (150-450) L 01/30/19 05:05 MPV 7.8 fL (7.4-10.4) 01/30/19 05:05 Neut % (Auto) 69.1 % 01/27/19 23:25 Lymph % (Auto) 19.8 % 01/27/19 23:25 [place] % (Auto) 10.8 % 01/27/19 23:25 Eos % (Auto) 0.0 % 01/27/19 23:25 Baso % (Auto) 0.3 % 01/27/19 23:25 Absolute Neuts (auto) 11.2 10^3/ul (1.5-7.7) H 01/27/19 23:25 Absolute Lymphs (auto) 3.2 10^3/ul (1.0-4.8) 01/27/19 23:25 Absolute Monos (auto) 1.8 10^3/ul (0-0.8) H 01/27/19 23:25 Absolute Eos (auto) 0.0 10^3/ul (0-0.6) 01/27/19 23:25 Absolute Basos (auto) 0.0 10^3/ul (0-0.2) 01/27/19 23:25 Absolute Nucleated RBC 0.0 10^3/ul 01/27/19 23:25 Nucleated RBC % 0.2 01/27/19 23:25 Polychromasia 2+ 01/27/19 23:25 INR (Anticoag Therapy) 2.91 (0.82-1.09) H 01/30/19 05:05 APTT 39.9 seconds (26.0-38.0) H 01/28/19 06:07 Fibrinogen 320.1 mg/dL (110.8-404.3) 01/28/19 06:07 Patient Temperature Not Reportable 01/30/19 05:13 ABG pH 7.30 (7.35-7.45) L 01/30/19 05:13 ABG pH (Temp Correct) Not Reportable 01/30/19 05:13 ABG pCO2 41 mmHg (35-45) 01/30/19 05:13 ABG pCO2 (Temp Corrct Not Reportable 01/30/19 05:13 ABG pO2 139 mmHg (80-100) H 01/30/19 05:13 ABG pO2 (Temp Correct Not Reportable 01/30/19 05:13 ABG HCO3 20.3 mmol/L (19-31) 01/30/19 05:13 ABG O2 Saturation 99.6 % (94.0-98.0) H 01/30/19 05:13 ABG Base Excess -5.9 mmol/L (-2.0-2.0) L 01/30/19 05:13 VBG pH 7.16 (7.32-7.43) L 01/28/19 09:30 VBG pCO2 60 mmHg (41-51) H 01/28/19 09:30 VBG pO2 < 38.0 mmHg (35-45) 01/28/19 09:30 VBG HCO3 17.4 mmol/L (24-28) L 01/28/19 09:30 VBG O2 Saturation 49.2 % (70-80) L 01/28/19 09:30 VBG Base Excess -8.0 mmol/L (0.0-4.0) L 01/28/19 09:30 Respiration Rate 30 01/30/19 05:13 O2 Delivery Device vent 01/30/19 05:13 Ventilator Type 500 01/30/19 05:13 Vent Mode Scmv 01/30/19 05:13 FiO2 50 01/30/19 05:13 Inspiratory Time Not Reportable 01/30/19 05:13 PEEP 8 01/30/19 05:13 Pressure Support Not Reportable 01/30/19 05:13 Pressure Control Not Reportable 01/30/19 05:13 EPAP Not Reportable 01/30/19 05:13 IPAP Not Reportable 01/30/19 05:13 BiPAP Not Reportable 01/30/19 05:13 Sodium 118 mmol/L (135-145) L* 01/30/19 13:25 Potassium 4.3 mmol/L (3.5-5.0) 01/30/19 13:25 Chloride 89 mmol/L (101-111) L 01/30/19 13:25 Carbon Dioxide 26 mmol/L (22-32) 01/30/19 13:25 Anion Gap 3 mmol/L (2-11) 01/30/19 13:25 BUN 33 mg/dL (6-24) H 01/30/19 13:25 Creatinine 1.80 mg/dL (0.67-1.17) H 01/30/19 13:25 Est GFR ( Amer) 44.9 (>60) 01/30/19 13:25 Est GFR (Non-Af Amer) 37.1 (>60) 01/30/19 13:25 BUN/Creatinine Ratio 18.3 (8-20) 01/30/19 13:25 Glucose 199 mg/dL (70-100) H 01/30/19 13:25 POC Glucose (mg/dL) 153 mg/dL (70-100) H 01/27/19 11:06 Hemoglobin A1c 7.5 % (4.0-5.6) H 01/27/19 13:00 Lactic Acid 1.7 mmol/L (0.5-2.0) 01/28/19 13:27 Calcium 7.5 mg/dL (8.6-10.3) L 01/30/19 13:25 Ionized Calcium 0.98 mmol/L (1.16-1.32) L 01/29/19 15:15 Phosphorus 3.8 mg/dL (2.5-5.0) 01/30/19 05:05 Magnesium 1.7 mg/dL (1.9-2.7) L 01/30/19 13:25 Total Bilirubin 12.40 mg/dL (0.2-1.0) H* D 01/30/19 05:05 Direct Bilirubin 7.90 mg/dL (0.03-0.18) H 01/30/19 05:05 Indirect Bilirubin 4.5 mg/dL (0.3-1.0) H 01/30/19 05:05 AST 933 U/L (13-39) H 01/30/19 05:05 ALT 1677 U/L (7-52) H 01/30/19 05:05 Alkaline Phosphatase 188 U/L (34-104) H 01/30/19 05:05 Troponin I 0.35 ng/mL (<0.04) H* 01/28/19 06:07 B-Natriuretic Peptide 731 pg/mL (<=100) H 01/27/19 13:00 Total Protein 5.4 g/dL (6.4-8.9) L 01/30/19 05:05 Albumin 2.6 g/dL (3.2-5.2) L 01/30/19 05:05 Globulin 2.8 g/dL (2-4) 01/30/19 05:05 Albumin/Globulin Ratio 0.9 (1-3) L 01/30/19 05:05 Triglycerides < 10 mg/dL 01/27/19 13:00 Cholesterol < 27 mg/dL 01/27/19 13:00 LDL Cholesterol 16 mg/dL 01/27/19 13: HDL Cholesterol 9.4 mg/dL 01/27/19 13: TSH 3.10 mcIU/mL (0.34-5.60) 01/27/19 13: Urine Color [place] 01/28/19: Urine Appearance Cloudy 01/28/19: Urine pH 5.0 (5-9) 01/28/19: Ur Specific Cylinder 1.009 (1.010-1.030) L 01/28/19:00 Urine Protein 1+(30 mg/dl) (Negative) A 01/28/19: Urine Ketones Negative (Negative) 01/28/19: Urine Blood 3+ (Negative) A 01/28/19 23:00 Urine Nitrate Negative (Negative) 01/28/19: Urine Bilirubin Negative (Negative) 01/28/19: Urine Urobilinogen Negative (Negative) 01/28/19: Ur Leukocyte Esterase Negative (Negative) 01/28/19 23:00 Urine WBC (Auto) Trace(0-5/hpf) (Absent) 01/28/19 23: Urine RBC (Auto) 3+(>10/hpf) (Absent) A 01/28/19: Ur Squamous Epith Cells Present (Absent) A 01/28/19 23:00 Urine Bacteria Absent (Absent) 01/28/19: Hyaline Casts Present (Absent) A 01/28/19: Urine Glucose Negative (Negative) 01/28/19 23: Blood Type O Positive 01/27/19: Antibody Screen Negative 01/27/19: Diagnostic Imaging: Transesophageal Echocardiogram Patient: Markus Miller *Reading Physician: * Tiffany Uribe MD Indications: Atrial Flutter. History: Coronary artery disease. PMH: Cardiomyopathy. Myocardial infarction. Risk factors: Hypertension. Diabetes mellitus. Dyslipidemia. Conclusions Summary: - Left ventricle: The cavity size is dilated. Wall thickness is mildly increased. Systolic function is severely reduced. The estimated ejection fraction is <10%. - Right ventricle: Systolic function is moderately to severely reduced. - Left atrium: There is no evidence of a thrombus in the atrial cavity or appendage. There is spontaneous echo contrast ("smoke") in the cavity and the appendage. - Atrial septum: A PFO is not demonstrated by color Doppler or agitated saline contrast. - Mitral valve: There is trace to mild regurgitation. - Aortic valve: Mild focal calcification involving the left coronary and noncoronary cusp. -Tricuspid valve: Mild tricuspid regurgitation. CXR: 01/30/19: pulmonary edema. EKG Data: Pre CV: a flutter 2:1 block, V rate 108 bpm Monitor: 01/30/19: junctional rhythm, inverted P waves and short CA interval alternating with sinus and other atrial pacer sites, occ. PVC's. Assessment/Plan 73 yo with A flutter unknown duration started on Eliquis 2 weeks ago. Severe CM , ischemic and non ischemic, new drop thought to be due to rhythm and rate. Underwent IRMA guided CV complicated by hypotension, apnea and cardiogenic shock with multisystem organ failure. Some recovery from shock noted 01/29/19 based on urination returning and improvement in LFT's, improvement in CO from swan and BP stability on lower amounts of pressors. Lack of awakening off pressors, low sodium, rising bile and continued dependance on multiple pressors a poor jail prognostic sign. Cardiogenic shock: Occured post CV with sedation and ICU managing with pressors, swan. Update EF by echo in AM. Paroxysmal atrial flutter: -S/p CV . -Amiodarone on hold, but likely still in his system. -INR remains >2 (due to liver failure). CM: [place] to be combination of CAD but predominantly from flutter and RVR. As CO improved, check limited echo for EF. Fevers persist-being treated for pneumonia. Hypnatremia marked and refractory to diuretics. Gtts being concentrated. Poor CO contributing. Overall the patient's status is very guarded and grave, in my opinion there is a small lieklyhood of recovery.
[2019-01-30] MEDS ORDERED: Magnesium Sulf 4 GM/100 ML IV* 4,000 MG/100 ML BAG IVPB ONE (16:13)
[2019-01-30] MEDS: [UNRECOGNIZED DRUG - REMARK] IV SCH ×4 (17:44→21:34)
[2019-01-30] MEDS ORDERED: Vasopressin* 100 UNITS in D5W 250 ML BAG IV SCH (22:45)
[2019-01-30 23:04] LABS: BUN/Creatinine Ratio 18.3 (8-20); Calcium 7.6 mg/dL (8.6-10.3); EGFR African American 44.9 (>60); EGFR Non-African American 37.1 (>60); Potassium 4.4 mmol/L (3.5-5.0)
[2019-01-31] MEDS: [UNRECOGNIZED DRUG - REMARK] IV SCH ×2 (01:10→04:48)
[2019-01-31] MEDS: Chlorhexidine MOUTHWASH 0.12%* 15 ML UDC TOPICAL SCH ×3 (01:30→08:18)
[2019-01-31] MEDS: Norepinephrine VIAL* 8 MG in NS 0.9% 500 ML* 492 ML IV SCH ×2 (01:50→04:48)
[2019-01-31] MEDS: DoBUTamine INJ* 500 MG in D5W 100 ML BAG* 60 ML IV SCH (03:36)
[2019-01-31] MEDS: Propofol* 100 ML IV SCH ×2 (03:51→08:30)
[2019-01-31 04:25] LABS: Hematocrit 45 % (42-52); Hemoglobin 14.9 g/dL (14.0-18.0); Mean Corpuscular HGB Conc 33 g/dL (31-36); Mean Corpuscular Hemoglobin 30 pg (27-31); Mean Corpuscular Volume 91 fL (80-94); Platelet Count 96 10^3/uL (150-450); Red Blood Count 4.94 10^6 /uL (4.18-5.48); Red Cell Distribution Width 20 % (10-15); White Blood Count 7.9 10^3/uL (3.5-10.8)
[2019-01-31 04:28] LABS: INR 1.98 (0.82-1.09)
[2019-01-31 04:41] LABS: Albumin 2.6 g/dL (3.2-5.2); Albumin/Globulin Ratio 0.9 (1-3); Alkaline Phosphatase 204 U/L (34-104); BUN/Creatinine Ratio 19.8 (8-20); Blood Urea Nitrogen 33 mg/dL (6-24); CO2 Carbon Dioxide 21 mmol/L (22-32); Calcium 7.4 mg/dL (8.6-10.3); Chloride 92 mmol/L (101-111); EGFR African American 48.9 (>60); EGFR Non-African American 40.4 (>60); Globulin 2.9 g/dL (2-4); Glucose 168 mg/dL (70-100); Phosphorus 4.8 mg/dL (2.5-5.0); Sodium 123 mmol/L (135-145); Total Protein 5.5 g/dL (6.4-8.9)
[2019-01-31 05:06] LABS: ALT 1243 U/L (7-52)
[2019-01-31 05:07] LABS: Anion Gap 10 mmol/L (2-11)
[2019-01-31] MEDS: DOPamine 800 MG/250 ML IVPREM* 800 MG/250 ML ML CENTR SCH (06:11)
[2019-01-31] MEDS: Aspirin EC TAB* 81 MG TAB.EC PO SCH (07:38)
[2019-01-31] MEDS: Cefepime 2 GM in Dextrose(*) 2 GM/50 ML BAG IV SCH (08:18)
[2019-01-31] MEDS: Pantoprazole IV* 40 MG IV SCH (08:19)
[2019-01-31] MEDS ORDERED: Morphine 10 MG/ML VIAL (1 ml) IV PRN (09:57)
--- NOTE | 2019-01-31 10:14 | PN ---
Date of Service: 01/31/19 Critical Care Services: family including and son at bedside dr. roberson at bedside off Propofol gtt patient over-breathing vent and appears uncomfortable remains on multiple pressors and inotropes Vital Signs: Temp Pulse Resp BP SpO2 FiO2 99.9 F 97 30 96/53 99 40 01/31/19 04:00 01/31/19 09:01 01/31/19 07:00 01/28/19 00:45 01/31/19 09:01 01/31 09:22 Physical Exam: Gen: intubated. sedated off sedation Fluid Balance (Past 24 Hours): I= O= Net Intake & Output 01/29/19 01/30/19 01/31/19 02/01/19 06:59 06:59 06:59 06:59 Intake Total 32491.8 9413.8 8632 Output Total 1696 67562 04788 300 Balance 01731.8 -2496.2 -1508 -300 Weight 261 lb 0.437 oz 252 lb 10.396 oz 252 lb 6.868 oz Intake: IV Fluids 208 238 316 NS (0.9%) 208 238 316 IVPB 180 327 Magnesium 117 117 NS (0.9%) 63 210 [place] [address].8 8995.8 7989 CC - Dobutamine 182.8 240 249 CC - Dopamine 6651 446 4042 CC - Norepinephrine/ 2997 1770 2391 Levophed CC - Vasopressin/ 35 Pitressin Calcium Chloride 60 Epinepherine 6662 5731 3964 propofol 634 253.8 306 Oral 0 0 NG Tube Irrigate Amount 30 Output: NG Tube Drainage Amount 600 Urine 0 [place] 1096 39484 9890 300 Suctioning 250 Other: Estimated Void Large # Bowel Movements 0 # Voids 1 ADLs: Meal Record Start: 01/27/19 11: 14 Freq: Status: Inactive Protocol: Created 01/27/19 11:14 [id number] (Rec: 01/27/19 11:14 IMG-M07) ADLs: Meal Record Start: 01/27/19 11: 43 Freq: ,,18 Status: Active Protocol: Created 01/27/19 11:43 System (Rec: 01/27/19 11:43 System ICU-C14) Document 01/27/19 13:00 [id number] (Rec: 01/27/19 13:05 [id number] IMG-M07) Document 01/27/19 18:00 JCB0692 (Rec: 01/27/19 18:07 [id number] ICU-L03) Document 01/28/19 09:00 BHV4211 (Rec: 01/28/19 12:16 [id number] ICU-C15) Document 01/28/19 13:00 GMR7591 (Rec: 01/28/19 14:06 VRD2477 ICU-C15) Document 01/28/19 18:00 UMH7168 (Rec: 01/28/19 18:24 MDS3586 ICU-C15) Document 01/29/19 18:00 KRE8948 (Rec: 01/29/19 18:00 XBH1763 ICU-L03) Intake and Output Start: 01/27/19 11: 14 Freq: Q1HR Status: Inactive Protocol: Created 01/27/19 11:14 [id number] (Rec: 01/27/19 11:14 [id number] IMG-M07) Intake and Output Start: 01/27/19 11: 43 Freq: Q1HR Status: Active Protocol: Created 01/27/19 11:43 System (Rec: 01/27/19 11:43 System ICU-C14) Document 01/27/19 14:00 CTQ5787 (Rec: 01/27/19 15:47 FOG2503 ICU-L03) Document 01/27/19 15:00 ZYS2064 (Rec: 01/27/19 15:47 FQL6906 ICU-L03) Document 01/27/19 18:00 JWE0930 (Rec: 01/27/19 18:02 RSS7114 ICU-L03) Document 01/27/19 19:00 ZHE6787 (Rec: 01/28/19 01:51 HVR5710 IMG-M07) Document 01/27/19 20:00 SCS9017 (Rec: 01/28/19 01:51 PUT9796 IMG-M07) Document 01/27/19 21:00 SYP0501 (Rec: 01/28/19 01:52 KCC5465 IMG-M07) Document 01/28/19 06:00 PZG6794 (Rec: 01/28/19 09:36 DZT6336 ICU-C21) Document 01/28/19 08:00 GFJ4571 (Rec: 01/28/19 09:46 UJA2386 ICU-L03) Document 01/28/19 09:00 RCF9861 (Rec: 01/28/19 12:30 OTX1113 ICU-C15) Document 01/28/19 10:00 JNR8370 (Rec: 01/28/19 12:39 NPH6732 ICU-C15) Document 01/28/19 11:00 XAO3874 (Rec: 01/28/19 12:42 VWP1196 ICU-C15) Document 01/28/19 12:00 RNN8677 (Rec: 01/28/19 14:05 KKH4419 ICU-C15) Document 01/28/19 13:00 IPV5235 (Rec: 01/28/19 14:06 KMX6475 ICU-C15) Document 01/28/19 14:00 WZI6543 (Rec: 01/28/19 15:07 CES5481 ICU-C15) Document 01/28/19 15:00 JNE4808 (Rec: 01/28/19 15:08 TQP4568 ICU-C15) Document 01/28/19 16:00 VIO1435 (Rec: 01/28/19 16:15 SGO7802 ICU-C15) Document 01/28/19 17:00 XWO6054 (Rec: 01/28/19 17:17 JXC0704 ICU-C15) Document 01/28/19 18:00 OEK8904 (Rec: 01/28/19 18:24 IDR2255 ICU-C15) Document 01/28/19 20:00 LVE0854 (Rec: 01/28/19 20:26 FOM8854 ICU-C15) Document 01/28/19 22:00 UDV1047 (Rec: 01/28/19 22:18 WPJ1173 ICU-C15) Document 01/28/19 23:40 QDP8295 (Rec: 01/28/19 23:40 GGX2709 ICU-L03) Document 01/29/19 01:00 DVU2661 (Rec: 01/29/19 01:05 XCC9288 ICU-C15) Document 01/29/19 02:00 PYH6081 (Rec: 01/29/19 02:15 ACC2459 ICU-C15) Document 01/29/19 03:00 JEU5417 (Rec: 01/29/19 03:02 KTP7498 IMG-M07) Document 01/29/19 05:00 ODP7614 (Rec: 01/29/19 05:17 XJC1955 IMG-M07) Document 01/29/19 05:53 TPB4547 (Rec: 01/29/19 05:54 VKH9078 ICU-C15) Document 01/29/19 06:36 FHJ1222 (Rec: 01/29/19 06:36 KMH3256 ICU-L03) Document 01/29/19 07:00 HFK8196 (Rec: 01/29/19 08:26 VRG1958 ICU-C15) Document 01/29/19 08:00 SHG3870 (Rec: 01/29/19 09:21 VKV1599 ICU-C15) Document 01/29/19 09:00 GAD6581 (Rec: 01/29/19 09:21 HXZ3089 ICU-C15) Document 01/29/19 10:00 GUI9654 (Rec: 01/29/19 10:50 WNI4820 IMG-M07) Document 01/29/19 10:50 IGF7301 (Rec: 01/29/19 10:50 RRD5416 IMG-M07) Document 01/29/19 11:58 PQF4722 (Rec: 01/29/19 12:03 UYG0510 ICU-L03) Document 01/29/19 12:59 TMF9207 (Rec: 01/29/19 13:00 FXF8239 ICU-L03) Document 01/29/19 13:00 UNP5990 (Rec: 01/29/19 14:15 VUA7809 ICU-C15) Document 01/29/19 14:00 LBH9872 (Rec: 01/29/19 14:15 ZKO0407 ICU-C15) Document 01/29/19 15:00 IRY0531 (Rec: 01/29/19 16:17 RJS2739 ICU-L03) Document 01/29/19 16:00 VPH2547 (Rec: 01/29/19 17:16 BLE7138 ICU-L03) Document 01/29/19 17:00 JKP9933 (Rec: 01/29/19 17:20 HOP3147 ICU-L03) Document 01/29/19 18:00 ERD1315 (Rec: 01/29/19 18:11 CGK1835 ICU-L03) Document 01/29/19 19:50 XSU4711 (Rec: 01/29/19 19:50 RFD8750 IMG-M07) Document 01/29/19 21:00 XAT4507 (Rec: 01/29/19 22:10 SUX0164 ICU-L03) Document 01/29/19 22:00 YOB2091 (Rec: 01/29/19 22:10 WIW9116 ICU-L03) Document 01/29/19 23:00 MRC1631 (Rec: 01/29/19 23:01 MOK2655 ICU-M33) Document 01/29/19 23:25 UMG1983 (Rec: 01/29/19 23:26 TTL1008 ICU-C15) Document 01/30/19 00:00 JOO7172 (Rec: 01/30/19 00:34 JAP5749 ICU-M33) Document 01/30/19 00:37 CZH1047 (Rec: 01/30/19 00:37 SHG6730 ICU-M33) Document 01/30/19 01:00 SUK2173 (Rec: 01/30/19 01:15 TZA9993 ICU-L03) Document 01/30/19 01:36 WKK1257 (Rec: 01/30/19 01:37 VSF3091 ICU-C15) Document 01/30/19 03:00 KCB7497 (Rec: 01/30/19 03:21 [id number] ICU-C15) Document 01/30/19 04:35 FOP1358 (Rec: 01/30/19 04:35 WWK6167 ICU-C15) Document 01/30/19 04:55 WFF6766 (Rec: 01/30/19 04:55 VDF7982 ICU-L03) Document 01/30/19 05:16 XVY4725 (Rec: 01/30/19 05:16 LCF0885 ICU-M33) Document 01/30/19 05:48 LAC6794 (Rec: 01/30/19 05:48 JMA6447 ICU-M33) Document 01/30/19 06:00 OLZ6984 (Rec: 01/30/19 06:02 KNA7114 ICU-L03) Document 01/30/19 07:00 AJD4541 (Rec: 01/30/19 08:27 LHT3951 ICU-C15) Document 01/30/19 08:00 SVN4328 (Rec: 01/30/19 08:27 TVW1242 ICU-C15) Document 01/30/19 09:00 HJW5219 (Rec: 01/30/19 10:07 OHW4488 ICU-M33) Document 01/30/19 10:00 ADL3431 (Rec: 01/30/19 10:07 ESG9010 ICU-M33) Document 01/30/19 11:00 OOM2878 (Rec: 01/30/19 11:07 PTV8377 ICU-C15) Document 01/30/19 12:00 DWX7721 (Rec: 01/30/19 13:13 YNK9321 ICU-M33) Document 01/30/19 13:00 ESH8478 (Rec: 01/30/19 13:13 JZV6717 ICU-M33) Document 01/30/19 14:00 MNY8758 (Rec: 01/30/19 17:24 DTF2442 ICU-C15) Document 01/30/19 15:00 FHQ6431 (Rec: 01/30/19 17:24 UYW8751 ICU-C15) Document 01/30/19 16:00 MVL9221 (Rec: 01/30/19 17:24 VFU4669 ICU-C15) Document 01/30/19 17:00 PLD0207 (Rec: 01/30/19 17:24 MIA1534 ICU-C15) Document 01/30/19 18:00 KJD4429 (Rec: 01/30/19 19:51 HNM5183 ICU-C56) Document 01/30/19 19:00 FVT0279 (Rec: 01/30/19 19:24 RCM1238 ICU-M33) Document 01/30/19 21:47 QUH7501 (Rec: 01/30/19 21:47 BOU4043 ICU-M33) Document 01/30/19 23:28 XLY7075 (Rec: 01/30/19 23:28 ZEJ8425 ICU-M33) Document 01/30/19 23:48 EUQ3246 (Rec: 01/30/19 23:48 [id number] ICU-M33) Document 01/31/19 00:39 [id number] (Rec: 01/31/19 00:39 [id number] ICU-M33) Document 01/31/19 01:00 [id number] (Rec: 01/31/19 01:01 [id number] ICU-M33) Document 01/31/19 01:31 [id number] (Rec: 01/31/19 01:31 [id number] ICU-M33) Document 01/31/19 02:00 [id number] (Rec: 01/31/19 02:17 [id number] ICU-L03) Document 01/31/19 04:00 [id number] (Rec: 01/31/19 04:07 [id number] ICU-M33) Document 01/31/19 05:00 [id number] (Rec: 01/31/19 05:11 [id number] ICU-L03) Document 01/31/19 06:00 [id number] (Rec: 01/31/19 06:05 [id number] ICU-L03) Document 01/31/19 06:06 [id number] (Rec: 01/31/19 06:07 [id number] ICU-L03) Document 01/31/19 07:00 [id number] (Rec: 01/31/19 09:59 [id number] ICU-C15) Labs: Laboratory Results - last 24 hr 01/30/19 01/30/19 01/31/19 13:25 22:40 04:13 WBC RBC Hgb Hct MCV MCH MCHC RDW Plt Count MPV INR (Anticoag Therapy) Sodium 118 L* 123 L 123 L Potassium 4.3 4.4 TNP Chloride 89 L 91 L 92 L Carbon Dioxide 26 24 21 L Anion Gap 3 8 10 BUN 33 H 33 H 33 H Creatinine 1.80 H 1.80 H 1.67 H Est GFR ( Amer) 44.9 44.9 48.9 Est GFR (Non-Af Amer) 37.1 37.1 40.4 BUN/Creatinine Ratio 18.3 18.3 19.8 Glucose 199 H 140 H 168 H Calcium 7.5 L 7.6 L 7.4 L Phosphorus 4.8 Magnesium 1.7 L 2.0 Total Bilirubin 13.70 H* Direct Bilirubin TNP Indirect Bilirubin TNP AST TNP ALT 1243 H Alkaline Phosphatase 204 H Total Protein 5.5 L Albumin 2.6 L Globulin 2.9 Albumin/Globulin Ratio 0.9 L 01/31/19 01/31/19 04:13 04:13 WBC 7.9 RBC 4.94 Hgb 14.9 Hct 45 MCV 91 MCH 30 MCHC 33 RDW 20 H Plt Count 96 L MPV 8.0 INR (Anticoag Therapy) 1.98 H Sodium Potassium Chloride Carbon Dioxide Anion Gap BUN Creatinine Est GFR ( Amer) Est GFR (Non-Af Amer) BUN/Creatinine Ratio Glucose Calcium Phosphorus Magnesium Total Bilirubin Direct Bilirubin Indirect Bilirubin AST ALT Alkaline Phosphatase Total Protein Albumin Globulin Albumin/Globulin Ratio Impression: Multi-organ failure on multiple vasopressors ARF on MV s/p cardiac arrest Encephalopathy Thrombocytopenea Had multiple long conversations with family this morning, including ex- and son. Dr. Roberson also in attendance for last family meeting. Nursing present during all meetings. Had conversations over the phone with Dr. Uribe and Cardiology [employer], as well. After going over patient's condition, discussing his previous GOC and wishes in the past, it was determined he would not want such aggressive measures. Consequently, with all family in agreement, it was decided he would be terminally extubated this morning and no further aggressive measures will be undertaken. They understand he will . Plan: Critical Care Time: 129 minutes
--- NOTE | 2019-01-31 10:36 | PN ---
Date of Service: 01/31/19 Critical Care Services: patient terminally extubated around 10 a.m. this morning. now, patient without pulse, no spontaneous respirations, no pupillary reflexes, no corneal reflexes. patient declared at 10:30 a.m. Vital Signs: Temp Pulse Resp BP SpO2 FiO2 99.9 F 95 30 96/53 98 40 01/31/19 04:00 01/31/19 10:00 01/31/19 10:08 01/28/19 00:45 01/31/19 10:00 01/31 09:22 Physical Exam: Gen: HEENT: Lungs: Cardiac: Abdomen: Extremities: Neuro: Fluid Balance (Past 24 Hours): I= O= Net Intake & Output 01/29/19 01/30/19 01/31/19 02/01/19 06:59 06:59 06:59 06:59 Intake Total 69613.8 9413.8 8632 Output Total 1696 19127 21148 850 Balance 58947.8 -2496.2 -1508 -850 Weight 261 lb 0.437 oz 252 lb 10.396 oz 252 lb 6.868 oz Intake: IV Fluids 208 238 316 NS (0.9%) 208 238 316 IVPB 180 327 Magnesium 117 117 NS (0.9%) 63 [place] [address].8 8995.8 7989 CC - Dobutamine 182.8 240 249 CC - Dopamine 5491 434 6052 CC - Norepinephrine/ 2997 1770 2391 Levophed CC - Vasopressin/ 35 Pitressin Calcium Chloride 60 Epinepherine 6662 5731 3964 propofol 634 253.8 306 Oral 0 0 NG Tube Irrigate Amount 30 Output: NG Tube Drainage Amount 600 Urine 0 [place] 1096 56966 9890 850 Suctioning 250 Other: Estimated Void Large # Bowel Movements 0 # Voids 1 ADLs: Meal Record Start: 01/27/19 11: 14 Freq: Status: Inactive Protocol: Created 01/27/19 11:14 [id number] (Rec: 01/27/19 11:14 [id number] IMG-M07) ADLs: Meal Record Start: 01/27/19 11: 43 Freq: ,, Status: Active Protocol: Created 01/27/19 11:43 System (Rec: 01/27/19 11:43 System ICU-C14) Document 01/27/19 13:00 IPY6215 (Rec: 01/27/19 13:05 RPJ0741 IMG-M07) Document 01/27/19 18:00 LHB2201 (Rec: 01/27/19 18:07 UHL3093 ICU-L03) Document 01/28/19 09:00 ONM2603 (Rec: 01/28/19 12:16 FLC8027 ICU-C15) Document 01/28/19 13:00 QKW5770 (Rec: 01/28/19 14:06 YTB6340 ICU-C15) Document 01/28/19 18:00 JWU2304 (Rec: 01/28/19 18:24 DIP7066 ICU-C15) Document 01/29/19 18:00 NXL7987 (Rec: 01/29/19 18:00 XXR3682 ICU-L03) Intake and Output Start: 01/27/19 11: 14 Freq: Q1HR Status: Inactive Protocol: Created 01/27/19 11:14 [id number] (Rec: 01/27/19 11:14 [id number] IMG-M07) Intake and Output Start: 01/27/19 11: 43 Freq: Q1HR Status: Active Protocol: Created 01/27/19 11:43 System (Rec: 01/27/19 11:43 System ICU-C14) Document 01/27/19 14:00 ZRU3686 (Rec: 01/27/19 15:47 SJE6142 ICU-L03) Document 01/27/19 15:00 RLU8512 (Rec: 01/27/19 15:47 DFW5037 ICU-L03) Document 01/27/19 18:00 INJ5057 (Rec: 01/27/19 18:02 DWV2035 ICU-L03) Document 01/27/19 19:00 VPN7655 (Rec: 01/28/19 01:51 FXH2521 IMG-M07) Document 01/27/19 20:00 FFJ0762 (Rec: 01/28/19 01:51 OEG1431 IMG-M07) Document 01/27/19 21:00 MTU3020 (Rec: 01/28/19 01:52 FBI9156 IMG-M07) Document 01/28/19 06:00 RVA4690 (Rec: 01/28/19 09:36 DOF6690 ICU-C21) Document 01/28/19 08:00 XTU8055 (Rec: 01/28/19 09:46 XHU1162 ICU-L03) Document 01/28/19 09:00 EKH2746 (Rec: 01/28/19 12:30 JKV4324 ICU-C15) Document 01/28/19 10:00 NFJ3921 (Rec: 01/28/19 12:39 KEQ5627 ICU-C15) Document 01/28/19 11:00 LIU9561 (Rec: 01/28/19 12:42 ONM0270 ICU-C15) Document 01/28/19 12:00 ZVH6076 (Rec: 01/28/19 14:05 XQH5852 ICU-C15) Document 01/28/19 13:00 SZY8006 (Rec: 01/28/19 14:06 LCK7816 ICU-C15) Document 01/28/19 14:00 LUD5641 (Rec: 01/28/19 15:07 GGZ4045 ICU-C15) Document 01/28/19 15:00 GRY6534 (Rec: 01/28/19 15:08 KPR2236 ICU-C15) Document 01/28/19 16:00 DUT9548 (Rec: 01/28/19 16:15 VZS4671 ICU-C15) Document 01/28/19 17:00 LBF4280 (Rec: 01/28/19 17:17 XMF1339 ICU-C15) Document 01/28/19 18:00 BUU9056 (Rec: 01/28/19 18:24 NJB9404 ICU-C15) Document 01/28/19 20:00 NXH2177 (Rec: 01/28/19 20:26 KWK0659 ICU-C15) Document 01/28/19 22:00 KNC9112 (Rec: 01/28/19 22:18 HFV1281 ICU-C15) Document 01/28/19 23:40 WSO5910 (Rec: 01/28/19 23:40 RTF5404 ICU-L03) Document 01/29/19 01:00 GBI6179 (Rec: 01/29/19 01:05 TPQ7624 ICU-C15) Document 01/29/19 02:00 VXX8571 (Rec: 01/29/19 02:15 AHT2000 ICU-C15) Document 01/29/19 03:00 NTL1420 (Rec: 01/29/19 03:02 KUG6962 IMG-M07) Document 01/29/19 05:00 GZU0278 (Rec: 01/29/19 05:17 VOL5455 IMG-M07) Document 01/29/19 05:53 YRC0160 (Rec: 01/29/19 05:54 GJF8704 ICU-C15) Document 01/29/19 06:36 XOW0633 (Rec: 01/29/19 06:36 QSR7439 ICU-L03) Document 01/29/19 07:00 TVP5143 (Rec: 01/29/19 08:26 AFG6797 ICU-C15) Document 01/29/19 08:00 PBU0890 (Rec: 01/29/19 09:21 IRY6309 ICU-C15) Document 01/29/19 09:00 DSJ5969 (Rec: 01/29/19 09:21 QGA1929 ICU-C15) Document 01/29/19 10:00 XJK5278 (Rec: 01/29/19 10:50 DBZ6133 IMG-M07) Document 01/29/19 10:50 PNO6764 (Rec: 01/29/19 10:50 PKP9739 IMG-M07) Document 01/29/19 11:58 GGQ9848 (Rec: 01/29/19 12:03 ZJT6333 ICU-L03) Document 01/29/19 12:59 PSO9608 (Rec: 01/29/19 13:00 AGQ2705 ICU-L03) Document 01/29/19 13:00 VCA4259 (Rec: 01/29/19 14:15 QZF6705 ICU-C15) Document 01/29/19 14:00 XTM7550 (Rec: 01/29/19 14:15 LKX6363 ICU-C15) Document 01/29/19 15:00 SBO4925 (Rec: 01/29/19 16:17 XKC7098 ICU-L03) Document 01/29/19 16:00 YDO2229 (Rec: 01/29/19 17:16 FIC1772 ICU-L03) Document 01/29/19 17:00 BHT2309 (Rec: 01/29/19 17:20 RNS8270 ICU-L03) Document 01/29/19 18:00 WDD2098 (Rec: 01/29/19 18:11 CQH8151 ICU-L03) Document 01/29/19 19:50 KDX6801 (Rec: 01/29/19 19:50 TFC0513 IMG-M07) Document 01/29/19 21:00 UXG1550 (Rec: 01/29/19 22:10 PJU6166 ICU-L03) Document 01/29/19 22:00 MSU5796 (Rec: 01/29/19 22:10 CKG1065 ICU-L03) Document 01/29/19 23:00 OUQ0331 (Rec: 01/29/19 23:01 RVW9488 ICU-M33) Document 01/29/19 23:25 QQU2464 (Rec: 01/29/19 23:26 TRK8925 ICU-C15) Document 01/30/19 00:00 QEF7176 (Rec: 01/30/19 00:34 EAV8713 ICU-M33) Document 01/30/19 00:37 DII4768 (Rec: 01/30/19 00:37 UQN9267 ICU-M33) Document 01/30/19 01:00 HSK6549 (Rec: 01/30/19 01:15 MVJ6713 ICU-L03) Document 01/30/19 01:36 YCW7784 (Rec: 01/30/19 01:37 FRO0009 ICU-C15) Document 01/30/19 03:00 PNL2989 (Rec: 01/30/19 03:21 QZH6172 ICU-C15) Document 01/30/19 04:35 WFR8619 (Rec: 01/30/19 04:35 EIE6894 ICU-C15) Document 01/30/19 04:55 YKC2776 (Rec: 01/30/19 04:55 ICL8301 ICU-L03) Document 01/30/19 05:16 MSV9748 (Rec: 01/30/19 05:16 BZC3774 ICU-M33) Document 01/30/19 05:48 LQK7255 (Rec: 01/30/19 05:48 FXD3204 ICU-M33) Document 01/30/19 06:00 JPO9385 (Rec: 01/30/19 06:02 LPJ1923 ICU-L03) Document 01/30/19 07:00 AVL4994 (Rec: 01/30/19 08:27 CFU4830 ICU-C15) Document 01/30/19 08:00 LVF3402 (Rec: 01/30/19 08:27 MTF6103 ICU-C15) Document 01/30/19 09:00 GEU5835 (Rec: 01/30/19 10:07 HFY8625 ICU-M33) Document 01/30/19 10:00 SMG3809 (Rec: 01/30/19 10:07 OHY6382 ICU-M33) Document 01/30/19 11:00 ZNJ3691 (Rec: 01/30/19 11:07 JNE9487 ICU-C15) Document 01/30/19 12:00 GST1775 (Rec: 01/30/19 13:13 MDL5179 ICU-M33) Document 01/30/19 13:00 SNJ9900 (Rec: 01/30/19 13:13 DHW7049 ICU-M33) Document 01/30/19 14:00 UYN9517 (Rec: 01/30/19 17:24 EAS1416 ICU-C15) Document 01/30/19 15:00 JYX7486 (Rec: 01/30/19 17:24 AOK6510 ICU-C15) Document 01/30/19 16:00 SSK8528 (Rec: 01/30/19 17:24 YBR3727 ICU-C15) Document 01/30/19 17:00 JUX6434 (Rec: 01/30/19 17:24 YUP4681 ICU-C15) Document 01/30/19 18:00 GLD4896 (Rec: 01/30/19 19:51 VCD2555 ICU-C56) Document 01/30/19 19:00 CGO6394 (Rec: 01/30/19 19:24 KPW7317 ICU-M33) Document 01/30/19 21:47 HSU3677 (Rec: 01/30/19 21:47 GUF0896 ICU-M33) Document 01/30/19 23:28 MCP6179 (Rec: 01/30/19 23:28 VKN8524 ICU-M33) Document 01/30/19 23:48 EWY7885 (Rec: 01/30/19 23:48 XKT4939 ICU-M33) Document 01/31/19 00:39 QKR4492 (Rec: 01/31/19 00:39 VOM2769 ICU-M33) Document 01/31/19 01:00 MQD7141 (Rec: 01/31/19 01:01 SVX9932 ICU-M33) Document 01/31/19 01:31 MMM3733 (Rec: 01/31/19 01:31 YTT9313 ICU-M33) Document 01/31/19 02:00 CGL6135 (Rec: 01/31/19 02:17 VDU9845 ICU-L03) Document 01/31/19 04:00 BBD3139 (Rec: 01/31/19 04:07 YIX6170 ICU-M33) Document 01/31/19 05:00 YRO3522 (Rec: 01/31/19 05:11 TNP9607 ICU-L03) Document 01/31/19 06:00 TDF1677 (Rec: 01/31/19 06:05 OFK7843 ICU-L03) Document 01/31/19 06:06 GRO5117 (Rec: 01/31/19 06:07 JZN1482 ICU-L03) Document 01/31/19 07:00 XNT7177 (Rec: 01/31/19 09:59 ELV0465 ICU-C15) Labs: Laboratory Results - last 24 hr 01/30/19 01/30/19 01/31/19 13:25 22:40 04:13 WBC RBC Hgb Hct MCV MCH MCHC RDW Plt Count MPV INR (Anticoag Therapy) Sodium 118 L* 123 L 123 L Potassium 4.3 4.4 TNP Chloride 89 L 91 L 92 L Carbon Dioxide 26 24 21 L Anion Gap 3 8 10 BUN 33 H 33 H 33 H Creatinine 1.80 H 1.80 H 1.67 H Est GFR ( Amer) 44.9 44.9 48.9 Est GFR (Non-Af Amer) 37.1 37.1 40.4 BUN/Creatinine Ratio 18.3 18.3 19.8 Glucose 199 H 140 H 168 H Calcium 7.5 L 7.6 L 7.4 L Phosphorus 4.8 Magnesium 1.7 L 2.0 Total Bilirubin 13.70 H* Direct Bilirubin TNP Indirect Bilirubin TNP AST TNP ALT 1243 H Alkaline Phosphatase 204 H Total Protein 5.5 L Albumin 2.6 L Globulin 2.9 Albumin/Globulin Ratio 0.9 L 01/31/19 01/31/19 04:13 04:13 WBC 7.9 RBC 4.94 Hgb 14.9 Hct 45 MCV 91 MCH 30 MCHC 33 RDW 20 H Plt Count 96 L MPV 8.0 INR (Anticoag Therapy) 1.98 H Sodium Potassium Chloride Carbon Dioxide Anion Gap BUN Creatinine Est GFR ( Amer) Est GFR (Non-Af Amer) BUN/Creatinine Ratio Glucose Calcium Phosphorus Magnesium Total Bilirubin Direct Bilirubin Indirect Bilirubin AST ALT Alkaline Phosphatase Total Protein Albumin Globulin Albumin/Globulin Ratio Plan: Critical Care Time:
== END 2019-01-31 10:30 | disposition expired | DRG 264 ==
LOC: CHICATH 07:11 → ICU 11:18
PROVIDERS: ADMIT Internal Medicine; ATTEND Specialist
PROC: 0B9M8ZX Drainage of Bilateral Lungs, Via Natural or Artificial Opening Endoscopic, Diagnostic (ICD-10-PCS; 2019-01-27)
PROC: 3E033XZ Introduction of Vasopressor into Peripheral Vein, Percutaneous Approach (ICD-10-PCS; 2019-01-27)
PROC: 02HQ32Z Insertion of Monitoring Device into Right Pulmonary Artery, Percutaneous Approach (ICD-10-PCS; 2019-01-27)
PROC: 4A133B3 Monitoring of Arterial Pressure, Pulmonary, Percutaneous Approach (ICD-10-PCS; 2019-01-27)
PROC: 4A1239Z Monitoring of Cardiac Output, Percutaneous Approach (ICD-10-PCS; 2019-01-27)
PROC: 05HM33Z Insertion of Infusion Device into Right Internal Jugular Vein, Percutaneous Approach (ICD-10-PCS; 2019-01-27)
PROC: 03HY32Z Insertion of Monitoring Device into Upper Artery, Percutaneous Approach (ICD-10-PCS; 2019-01-27)
PROC: 4A133B1 Monitoring of Arterial Pressure, Peripheral, Percutaneous Approach (ICD-10-PCS; 2019-01-27)
PROC: 4A133J1 Monitoring of Arterial Pulse, Peripheral, Percutaneous Approach (ICD-10-PCS; 2019-01-27)
PROC: 06HM33Z Insertion of Infusion Device into Right Femoral Vein, Percutaneous Approach (ICD-10-PCS; 2019-01-27)
PROC: B24BZZ4 Ultrasonography of Heart with Aorta, Transesophageal (ICD-10-PCS; 2019-01-27)
PROC: 5A1945Z Respiratory Ventilation, 24-96 Consecutive Hours (ICD-10-PCS; 2019-01-27)
PROC: 0BH17EZ Insertion of Endotracheal Airway into Trachea, Via Natural or Artificial Opening (ICD-10-PCS; 2019-01-27)
PROC: 5A2204Z Restoration of Cardiac Rhythm, Single (ICD-10-PCS; principal; 2019-01-27 09:00)
DX: R57.0 Cardiogenic shock (principal); J96.21 Acute and chronic respiratory failure with hypoxia; K72.00 Acute and subacute hepatic failure without coma; J81.0 Acute pulmonary edema; N17.0 Acute kidney failure with tubular necrosis; J96.02 Acute respiratory failure with hypercapnia; G93.40 Encephalopathy, unspecified; K92.2 Gastrointestinal hemorrhage, unspecified; E87.2 Acidosis; D68.9 Coagulation defect, unspecified; I48.92 Unspecified atrial flutter; I42.8 Other cardiomyopathies; I46.2 Cardiac arrest due to underlying cardiac condition; R00.1 Bradycardia, unspecified; I25.5 Ischemic cardiomyopathy; I25.10 Atherosclerotic heart disease of native coronary artery without angina pectoris; E11.9 Type 2 diabetes mellitus without complications; E78.5 Hyperlipidemia, unspecified; E66.9 Obesity, unspecified; N40.0 Benign prostatic hyperplasia without lower urinary tract symptoms; J84.112 Idiopathic pulmonary fibrosis; R41.0 Disorientation, unspecified; I44.7 Left bundle-branch block, unspecified; I48.0 Paroxysmal atrial fibrillation; F03.90 Unspecified dementia, unspecified severity, without behavioral disturbance, psychotic disturbance, mood disturbance, and anxiety; D69.6 Thrombocytopenia, unspecified; E87.5 Hyperkalemia; G47.33 Obstructive sleep apnea (adult) (pediatric); I11.0 Hypertensive heart disease with heart failure; I50.9 Heart failure, unspecified; I25.2 Old myocardial infarction; Z87.891 Personal history of nicotine dependence; Z68.35 Body mass index [BMI] 35.0-35.9, adult; Z82.49 Family history of ischemic heart disease and other diseases of the circulatory system; Z83.3 Family history of diabetes mellitus; Z82.0 Family history of epilepsy and other diseases of the nervous system; Z72.89 Other problems related to lifestyle; Z87.442 Personal history of urinary calculi
CPT/HCPCS: 31624; 36415; 36600; 70450; 71045; 76705; 80048; 80053; 80061; 80076; 81003; 81015; 82330; 82803; 83036; 83605; 83735; 83880; 84100; 84443; 84484; 85025; 85027; 85384; 85610; 85730; 86850; 86900; 86901; 87070; 87077; 87086; 87186; 87205; 87641; 92960; 93005; 93312; 93325; 94002; 94003; 99156; 99157; A9270-GY; J0171; J0282; J0330; J0610; J0692; J1250; J1265; J1630; J1940; J2060; J2250; J2270; J2310; J2405; J2704; J3010; J3430; J3475; J3480; J7060